=== PATIENT | male | born 1970 | race African-American/Black ===

== ENCOUNTER 2016-10-02 13:54 | Day surgery (SDC) | payer BC ==
[2016-09-29 13:27] VITALS: BMI 22.9
[2016-10-02] MEDS ORDERED: PROPOFOL 20 ML ONE ×4 (15:20)
[2016-10-02] MEDS ORDERED: ROCURONIUM BROMIDE 50 MG/5 ML VIAL ONE (15:23)
[2016-10-02] MEDS ORDERED: MIDAZOLAM HCL 2 MG/2 ML SINGLE DOSE VIAL ONE (15:35)
--- NOTE | 2016-10-02 16:12 | EKG ---
Test Reason : Blood Pressure : / mmHG Vent. Rate : 078 BPM Atrial Rate : 078 BPM P-R Int : 148 ms QRS Dur : 090 ms QT Int : 406 ms P-R-T Axes : 067 063 038 degrees QTc Int : 462 ms NORMAL SINUS RHYTHM POSSIBLE LEFT ATRIAL ENLARGEMENT LEFT VENTRICULAR HYPERTROPHY ABNORMAL ECG WHEN COMPARED WITH ECG OF 31-JUL-2014 12:30, NO SIGNIFICANT CHANGE WAS FOUND Confirmed by NICKY MANLEY, PRECIOUS ([id number]) on 10/02/2016 4:12:24 PM Referred By: MARTIN LEDEZMA Confirmed By:PRECIOUS SAUNDERS MD
[2016-10-02] MEDS ORDERED: SUCCINYLCHOLINE CHLORIDE 200 MG/10 ML VIAL ONE (17:04)
[2016-10-02] MEDS ORDERED: LABETALOL HCL 5 MG/1 ML (100MG/20 ML VIAL) ONE (17:15)
[2016-10-02] MEDS ORDERED: BUPIVACAINE HCL/PF 0.5% (5MG/ML) 10 ML VIAL IJ ONE (17:20)
[2016-10-02] MEDS ORDERED: DEXAMETHASONE SOD PHOSPHATE 4 MG/1 ML VIAL ONE (17:33)
[2016-10-02] MEDS ORDERED: GLYCOPYRROLATE 0.2 MG/1 ML VIAL ONE (17:44)
[2016-10-02] MEDS ORDERED: NEOSTIGMINE METHYLSULFATE 0.5 MG/ML - 10 ML MDV ONE (17:44)
--- NOTE | 2016-10-02 18:02 | OP ---
Operative Note - Note: Operative Date: 10/02/16 Pre-Operative Diagnosis: ESRD on HD Operation: Laparoscopy, placement peritoneal dialysis catheter Findings: No adhesions Post-Operative Diagnosis: Same as Pre-op Surgeon: Juarez Alexander Anesthesiologist/SQUARE SHEAR OPERATOR: Enrrique Washington Anesthesia: General
[2016-10-02] MEDS ORDERED: ACETAMINOPHEN 325 MG TABLET (FP) PO PRN (18:03)
[2016-10-02] MEDS ORDERED: oxyCODONE HCL 5 MG TABLET PO PRN ×2 (18:03→18:06)
[2016-10-02] MEDS ORDERED: ONDANSETRON 4 MG/2 ML VIAL IVPUSH PRN (18:06)
--- NOTE | 2016-10-02 18:10 | HP ---
Admitting History and Physical - Admission History of Present Illness: 46 yo male ESRD on HD has requested placement of Peritoneal Dialysis catheter. No prior abdominal surgery. - Past Medical History Cardiovascular: Yes: HTN Renal/: Yes: Renal Failure Heme/Onc: Yes: Anemia Infectious Disease: Yes: HIV Endocrine: Yes: Diabetes Mellitus - Smoking History Smoking history: Never smoked Have you smoked in the past 12 months: No Aproximately how many cigarettes per day: 0 - Alcohol/Substance Use Hx Alcohol Use: No - Social History ADL: Independent History of Recent Travel: No Home Medications - Allergies Allergies/Adverse Reactions: Allergies Allergy/AdvReac Type Severity Reaction Status Date / Time No Known Drug Allergies Allergy Verified 10/02/16 14:48 - Home Medications Home Medications: Ambulatory Orders Abacavir Sulfate [Abacavir] 300 mg PO DAILY 06/30/14 Lamivudine [Epivir] 150 mg PO DAILY 06/30/14 Rilpivirine HCl [Edurant] 25 mg PO DAILY 06/30/14 Calcium Acetate [Phoslo -] 1,334 mg PO TIDCM #90 capsule 07/16/14 Furosemide [Lasix -] 80 mg PO BID@0600,1400 #120 tablet 07/16/14 Labetalol HCl [Normodyne -] 400 mg PO BID #120 tablet 07/16/14 Losartan Potassium [Cozaar -] 50 mg PO DAILY #30 tablet 07/16/14 Nifedipine ER [Procardia XL -] 90 mg PO DAILY@2000 #30 tab.er.24 07/16/14 Tamsulosin HCl [Flomax -] 0.4 mg PO DAILY@0830 #30 cap.er.24h 07/16/14 Insulin Glargine,Hum.rec.anlog [Lantus (10mL VIAL) -] 25 units SQ HS 07/30/14 Amlodipine Besylate [Norvasc -] 10 mg PO DAILY 07/31/14 Hydrochlorothiazide [Hctz -] 25 mg PO DAILY 07/31/14 Benzonatate [Tessalon Pearls -] 100 mg PO TID #21 capsule 10/07/15 Insulin (Novolog) [Novolog Flexpen -] 5 units SQ DAILY 09/29/16 Pen Needle, Diabetic [Novofine] 5 each MC DAILY 09/29/16 Oxycodone HCl [Roxicodone -] 5 mg PO Q4H PRN #20 tablet MDD 6 10/02/16 Physical Examination Vital Signs: Vital Signs Temperature 97.9 F 10/02/16 14:36 Pulse Rate 81 10/02/16 14:36 Respiratory Rate 20 10/02/16 14:36 Blood Pressure 161/88 10/02/16 14:36 O2 Sat by Pulse Oximetry (%) 100 10/02/16 14:37 Constitutional: Yes: Well Nourished, No Distress Eyes: Yes: WNL HENT: Yes: WNL Neck: Yes: WNL, Supple Cardiovascular: Yes: Regular Rate and Rhythm Respiratory: Yes: Regular Gastrointestinal: Yes: Normal Bowel Sounds, Soft Peripheral Pulses WNL: Yes Labs: CBC, BMP 10/02/16 13:57 Problem List - Problems (1) ESRD (end stage renal disease) on dialysis Assessment/Plan: Placement PD catheter. ASU. Code(s): N18.6 - END STAGE RENAL DISEASE Z99.2 - DEPENDENCE ON RENAL DIALYSIS
[2016-10-02] MEDS ORDERED: SODIUM CHLORIDE 0.45% 1,000 ML IV SCH (18:15)
[2016-10-02 18:57] VITALS: TEMP 98.4
[2016-10-02 20:02] VITALS: BP 178/90; PULSE 67
--- NOTE | 2016-10-19 11:11 | OP ---
DATE OF OPERATION: 10/02/2016 SURGEON: Juarez Betancourt MD PROCEDURE: Laparoscopic placement of peritoneal dialysis catheter. PREOPERATIVE DIAGNOSIS: End-stage renal disease on hemodialysis. POSTOPERATIVE DIAGNOSIS: End-stage renal disease on hemodialysis. ANESTHESIA: General. ANESTHESIOLOGIST: Enrrique Washington MD OPERATIVE FINDINGS: There were no abnormal adhesions or redundant omentum in the peritoneal cavity. OPERATIVE PROCEDURE: Following routine patient identification with side and site verification, general anesthesia was induced. The abdomen was prepped with ChloraPrep. A small incision was made in the midline above the umbilicus, and a 5-mm Visiport placed under direct laparoscopic visualization into the peritoneal cavity. Pneumoperitoneum was established with carbon dioxide to 15 mmHg. A 30-degree angled laparoscope was inserted, and abdominal exploration carried out. An incision was made to the left of the umbilicus, and an 8-mm bladeless trocar advanced until the tip was seen on top of the peritoneum. The trocar was then advanced caudally towards the pelvis and entered the peritoneal cavity just above the true pelvis. A swan-neck take-off catheter with 2 cuffs was then straightened with a middle cele and passed through the 8-mm trocar and positioned in the pelvis. The trocar was pulled back, and the inner cuff positioned just at the level of the umbilicus. The other end of the catheter was attached to a curved tunneler, which was passed into subcutaneous tissues to exit in the right lower quadrant abdominal wall. The catheter was attached to a 1 L bag of saline, which was allowed to run in after evacuating pneumoperitoneum. The saline ran in at approximately 4.5 minutes. The bag was then dropped to the floor, and there was free flow of saline back out of the catheter. The remaining trocar was removed. All wounds were closed with 3-0 Vicryl subcutaneous and subcuticular 4-0 Biosyn, and glue. A sterile dressing was applied, and the patient was taken to the recovery room in stable condition. JUAREZ BETANCOURT M.D. [id number]
== END 2016-10-02 20:14 | disposition home or self-care (01) ==
LOC: JASU-SURG 13:54
PROVIDERS: ATTEND Surgery
PROC: 0WHG33Z Insertion of Infusion Device into Peritoneal Cavity, Percutaneous Approach (ICD-10-PCS; principal; 2016-10-02 13:30)
DX: I12.0 Hypertensive chronic kidney disease with stage 5 chronic kidney disease or end stage renal disease (principal); N18.5 Chronic kidney disease, stage 5; D64.9 Anemia, unspecified; B20 Human immunodeficiency virus [HIV] disease; E11.9 Type 2 diabetes mellitus without complications; Z79.4 Long term (current) use of insulin
CPT/HCPCS: 36415; 84132; 93005; 93010; 94760

== ENCOUNTER 2016-11-28 22:57 | Emergency (ER) | payer BC ==
[2016-11-28 23:03] VITALS: BP 183/90; PULSE 84; TEMP 98.4; BMI 24.5
--- NOTE | 2016-11-29 02:49 | PDOC ---
History of Present Illness - General Chief Complaint: Pain Stated Complaint: PAIN Time Seen by Provider: 11/29/16 01:48 History Source: Patient Exam Limitations: No Limitations - History of Present Illness Initial Comments: 11/29/16 02:43 46yo Male patient w/ PmHx: DM, HTN, Peripheral Neuropathy, Renal Failure on Dialysis presents to ED c/o right leg pain beginning yesterday. Patient states he is concerned for a clot, but he reports having a massage done a couple day prior to symptom presentation. Patient denies any other complaints at this time. Past History - Travel Traveled outside of the country in the last 30 days: No Close contact w/someone who was outside of country & ill: No - Past Medical History Allergies/Adverse Reactions: Allergies Allergy/AdvReac Type Severity Reaction Status Date / Time No Known Drug Allergies Allergy Verified 11/28/16 23:03 Home Medications: Ambulatory Orders Abacavir Sulfate [Abacavir] 300 mg PO DAILY 06/30/14 Lamivudine [Epivir] 150 mg PO DAILY 06/30/14 Rilpivirine HCl [Edurant] 25 mg PO DAILY 06/30/14 Calcium Acetate [Phoslo -] 1,334 mg PO TIDCM #90 capsule 07/16/14 Furosemide [Lasix -] 80 mg PO BID@0600,1400 #120 tablet 07/16/14 Labetalol HCl [Normodyne -] 400 mg PO BID #120 tablet 07/16/14 Losartan Potassium [Cozaar -] 50 mg PO DAILY #30 tablet 07/16/14 Nifedipine ER [Procardia XL -] 90 mg PO DAILY@2000 #30 tab.er.24 07/16/14 Tamsulosin HCl [Flomax -] 0.4 mg PO DAILY@0830 #30 cap.er.24h 07/16/14 Insulin Glargine,Hum.rec.anlog [Lantus (10mL VIAL) -] 25 units SQ HS 07/30/14 Amlodipine Besylate [Norvasc -] 10 mg PO DAILY 07/31/14 Hydrochlorothiazide [Hctz -] 25 mg PO DAILY 07/31/14 Benzonatate [Tessalon Pearls -] 100 mg PO TID #21 capsule 10/07/15 Insulin (Novolog) [Novolog Flexpen -] 5 units SQ DAILY 02/10/17 Pen Needle, Diabetic [Novofine] 5 each MC DAILY 09/29/16 Oxycodone HCl/Acetaminophen [Percocet 5-325 mg Tablet] 1 - 2 tab PO Q6H PRN #20 tab MDD 8 10/02/16 Anemia: Yes Asthma: No Cancer: No Cardiac Disorders: No CVA: No COPD: No CHF: No Dementia: No Diabetes: Yes GI Disorders: No Disorders: Yes (RENAL FAILURE ) HTN: Yes Hypercholesterolemia: No HIV: Yes Liver Disease: No Seizures: No Thyroid Disease: No - Surgical History Abdominal Surgery: No Appendectomy: No Cardiac Surgery: No Cholecystectomy: No Lung Surgery: No Neurologic Surgery: No Orthopedic Surgery: No - Family Disease History Family Disease History: Diabetes: Father - Immunization History Td Vaccination: Yes Immunization Up to Date: No - Psycho/Social/Smoking Cessation Hx Anxiety: No Suicidal Ideation: No Smoking Status: No Smoking History: Never smoked Have you smoked in the past 12 months: No Number of Cigarettes Smoked Daily: 0 Hx Alcohol Use: No Drug/Substance Use Hx: No Substance Use Type: None Hx Substance Use Treatment: No Review of Systems - Review of Systems Able to Perform ROS?: Yes Is the patient limited Bengali proficient: No Constitutional: No: Chills, Fever HEENTM: No: Blurred Vision, Double Vision Respiratory: No: Cough, Shortness of Breath, Stridor, Wheezing, Hemoptysis Cardiac (ROS): No: Chest Pain, Lightheadedness, Palpitations, Syncope, Chest Tightness ABD/GI: No: Constipated, Diarrhea, Nausea, Poor Appetite, Poor Fluid Intake, Vomiting : No: Burning, Dysuria, Hematuria Musculoskeletal: Yes: Other (Rt Leg Pain). No: Back Pain Integumentary: No: Bruising, Erythema, Rash Neurological: Yes: Numbness. No: Headache, Paresthesia, Seizure, Tingling, Tremors, Weakness, Ataxia, Dizziness All Other Systems: Reviewed and Negative *Physical Exam - Vital Signs Last Vital Signs Temp Pulse Resp BP Pulse Ox 98.4 F 84 18 183/90 100 11/28/16 22:58 11/28/16 22:58 11/28/16 22:58 11/28/16 22:58 11/28/16 22:58 - Physical Exam General Appearance: Yes: Nourished, Appropriately Dressed. No: Apparent Distress, Mild Distress, Moderate Distress, Severe Distress Respiratory/Chest: positive: Lungs Clear, Normal Breath Sounds. negative: Respiratory Distress, Accessory Muscle Use, Labored Respiration, Rapid RR Cardiovascular: positive: Regular Rhythm, Regular Rate. negative: Edema, JVD, Murmur Musculoskeletal: positive: Normal Inspection. negative: CVA Tenderness, Vertebral Tenderness Extremity: positive: Normal Capillary Refill, Normal Inspection, Normal Range of Motion, Calf Tenderness. negative: Pedal Edema, Swelling Integumentary: positive: Normal Color, Dry, Warm Neurologic: positive: paper colorer II-XII NML intact, Fully Oriented, Alert, Normal Mood/ Affect, Normal Response, Motor Strength 12/22 Medical Decision Making - Medical Decision Making 11/29/16 02:50 Patient was informed that ultrasound of lower extremity would be completed at 8am. Patient states he needs to go home to do his peritoneal dialysis and would return after 10am when he completes his treatment. Patient left treatment area at this time. 11/29/16 02:53 Patient will return from Ultrasound of right lower extremity in the am. *DC/Admit/Observation/Transfer Diagnosis at time of Disposition: ESRD (end stage renal disease) on dialysis, Right leg pain - Discharge Dispostion Disposition: LEFT BEFORE BLAS VERDIN Condition at time of disposition: Stable Admit: No
== END 2016-11-29 03:35 | disposition left against medical advice (07) ==
LOC: JER 22:57
DX: Z53.21 Procedure and treatment not carried out due to patient leaving prior to being seen by health care provider (principal)
CPT/HCPCS: 99281-25

== ENCOUNTER 2016-11-29 14:15 | Emergency (ER) | payer BC ==
[2016-11-29 14:46] VITALS: BP 163/84; PULSE 78; TEMP 98.6; BMI 24.6
--- NOTE | 2016-11-29 15:12 | PDOC ---
History of Present Illness - General Chief Complaint: Pain, Acute Stated Complaint: REVIST Time Seen by Provider: 11/29/16 14:49 History Source: Patient - History of Present Illness Occurred: reports: other Lower Extremity Pain Location: right: leg Past History - Past Medical History Allergies/Adverse Reactions: Allergies Allergy/AdvReac Type Severity Reaction Status Date / Time No Known Drug Allergies Allergy Verified 11/29/16 14:38 Home Medications: Ambulatory Orders Abacavir Sulfate [Abacavir] 300 mg PO DAILY 06/30/14 Lamivudine [Epivir] 150 mg PO DAILY 06/30/14 Calcium Acetate [Phoslo -] 1,334 mg PO TIDCM #90 capsule 07/16/14 Losartan Potassium [Cozaar -] 50 mg PO DAILY #30 tablet 07/16/14 Nifedipine ER [Procardia XL -] 90 mg PO DAILY@2000 #30 tab.er.24 07/16/14 Tamsulosin HCl [Flomax -] 0.4 mg PO DAILY@08 #30 cap.er.24h 07/16/14 Insulin Glargine,Hum.rec.anlog [Lantus (10mL VIAL) -] 25 units SQ HS 07/30/14 Amlodipine Besylate [Norvasc -] 10 mg PO DAILY 07/31/14 Hydrochlorothiazide [Hctz -] 25 mg PO DAILY 07/31/14 Insulin (Novolog) [Novolog Flexpen -] 5 units SQ DAILY 09/29/16 Pen Needle, Diabetic [Novofine] 5 each MC DAILY 09/29/16 Anemia: Yes Asthma: No Cancer: No Cardiac Disorders: No CVA: No COPD: No CHF: No Dementia: No Diabetes: Yes GI Disorders: No Disorders: Yes (RENAL FAILURE ) HTN: Yes Hypercholesterolemia: No HIV: Yes Liver Disease: No Seizures: No Thyroid Disease: No - Surgical History Abdominal Surgery: No Appendectomy: No Cardiac Surgery: No Cholecystectomy: No Lung Surgery: No Neurologic Surgery: No Orthopedic Surgery: No - Family Disease History Family Disease History: Diabetes: Father - Immunization History Td Vaccination: Yes Immunization Up to Date: No - Psycho/Social/Smoking Cessation Hx Anxiety: No Suicidal Ideation: No Smoking Status: No Smoking History: Never smoked Have you smoked in the past 12 months: No Number of Cigarettes Smoked Daily: 0 Hx Alcohol Use: No Drug/Substance Use Hx: No Substance Use Type: None Hx Substance Use Treatment: No Review of Systems - Review of Systems Constitutional: No: Chills, Fever Respiratory: No: Shortness of Breath Cardiac (ROS): No: Chest Pain, Palpitations *Physical Exam - Vital Signs Last Vital Signs Temp Pulse Resp BP Pulse Ox 98.6 F 78 20 163/84 98 11/29/16 14:41 11/29/16 14:41 11/29/16 14:41 11/29/16 14:41 11/29/16 14:41 - Physical Exam General Appearance: Yes: Appropriately Dressed. No: Apparent Distress HEENT: positive: Normal Voice Neck: positive: Supple Respiratory/Chest: negative: Respiratory Distress Extremity: positive: Normal Inspection Integumentary: positive: Dry, Warm Neurologic: positive: Fully Oriented, Alert, Normal Mood/Affect ED Treatment Course - RADIOLOGY Radiology Studies Ordered: Category Date Time Status DUPLEX VASCUL US-1 LEG [US] Stat Ultrasound 11/29/16 14:51 Ordered Medical Decision Making - Medical Decision Making 11/29/16 15:12 46-year-old male, history of diabetes on peritoneal dialysis, peripheral neuropathy, hypertension, was seen in ER this a.m. for right leg soreness. Per records, patient had, had a massage done several days prior to onset of symptoms. Pt's exam was found to be unremarkable with no swelling. Plan per ED was to get ultrasound done to r/o DVT, but given time of day, there was no armorer technician available and patient states he had to leave to go do his peritoneal dialysis at home, so was told to return to ED today for ultrasound today. Patient denies any change of symptoms since he has been discharged and no chest pain, shortness of breath or palpitations -US pending 11/29/16 15:48 US neg for DVT. Pt discharged in stable condition, to f/u with his PMD 11/29/16 15:49 *DC/Admit/Observation/Transfer Diagnosis at time of Disposition: Leg pain Qualifiers: Laterality: right Qualified Code(s): M79.604 - Pain in right leg - Discharge Dispostion Disposition: HOME Condition at time of disposition: Good - Patient Instructions Printed Discharge Instructions: DI for Leg Pain Additional Instructions: Your US was negative for clot in your leg today. The source of your pain is most likely from a muscular cause. Take tylenol as needed for pain and follow up with your PMD
== END 2016-11-29 15:55 | disposition home or self-care (01) ==
LOC: JERFT 14:15
DX: M79.604 Pain in right leg (principal); G62.89 Other specified polyneuropathies; I12.0 Hypertensive chronic kidney disease with stage 5 chronic kidney disease or end stage renal disease; E11.22 Type 2 diabetes mellitus with diabetic chronic kidney disease; N18.6 End stage renal disease; N17.8 Other acute kidney failure; Z99.2 Dependence on renal dialysis; Z79.4 Long term (current) use of insulin; D64.9 Anemia, unspecified; Z21 Asymptomatic human immunodeficiency virus [HIV] infection status
CPT/HCPCS: 93971-TC; 99281-25

== ENCOUNTER 2016-12-15 19:10 | Emergency (ER) | payer BC ==
--- NOTE | 2016-12-15 19:31 | PDOC ---
History of Present Illness - General Chief Complaint: Wound Stated Complaint: PD DRESSING LEAKING Time Seen by Provider: 12/15/16 19:17 - History of Present Illness Initial Comments: 12/15/16 19:31 Patient presents requesting a dressing change, abdominal wound. He had a peritoneal dialysis catheter removed today, the drainage is wet and he has no supplies to change it. He has no pain at the site, there has been no purulent fluid. Abdomen soft nontender without mass or organomegaly. 2 mm puncture site is clean and dry. Dressing is wet, but there is no continued drainage from the wound A new absorbent dressing was applied. Gauze and tape supplies were furnished for subsequent dressing changes. The patient was instructed that if the drainage persist to go back to see his surgeon for further evaluation and treatment. In no pain or other discomfort upon discharge to follow-up as directed Past History - Past Medical History Allergies/Adverse Reactions: Allergies Allergy/AdvReac Type Severity Reaction Status Date / Time No Known Drug Allergies Allergy Verified 12/15/16 19:20 Home Medications: Ambulatory Orders Abacavir Sulfate [Abacavir] 300 mg PO DAILY 06/30/14 Lamivudine [Epivir] 150 mg PO DAILY 06/30/14 Calcium Acetate [Phoslo -] 1,334 mg PO TIDCM #90 capsule 07/16/14 Losartan Potassium [Cozaar -] 50 mg PO DAILY #30 tablet 07/16/14 Nifedipine ER [Procardia XL -] 90 mg PO DAILY@2000 #30 tab.er.24 07/16/14 Tamsulosin HCl [Flomax -] 0.4 mg PO DAILY@0830 #30 cap.er.24h 07/16/14 Insulin Glargine,Hum.rec.anlog [Lantus (10mL VIAL) -] 25 units SQ HS 07/30/14 Amlodipine Besylate [Norvasc -] 10 mg PO DAILY 07/31/14 Hydrochlorothiazide [Hctz -] 25 mg PO DAILY 07/31/14 Insulin (Novolog) [Novolog Flexpen -] 5 units SQ DAILY 09/29/16 Pen Needle, Diabetic [Novofine] 5 each MC DAILY 09/29/16 Anemia: Yes Asthma: No Cancer: No Cardiac Disorders: No CVA: No COPD: No CHF: No Dementia: No Diabetes: Yes GI Disorders: No Disorders: Yes (RENAL FAILURE [id number]) HTN: Yes Hypercholesterolemia: No HIV: Yes Liver Disease: No Seizures: No Thyroid Disease: No - Surgical History Abdominal Surgery: No Appendectomy: No Cardiac Surgery: No Cholecystectomy: No Lung Surgery: No Neurologic Surgery: No Orthopedic Surgery: No - Family Disease History Family Disease History: Diabetes: Father - Immunization History Td Vaccination: Yes Immunization Up to Date: No - Psycho/Social/Smoking Cessation Hx Anxiety: No Suicidal Ideation: No Smoking Status: No Smoking History: Never smoked Have you smoked in the past 12 months: No Number of Cigarettes Smoked Daily: 0 Information on smoking cessation initiated: No Hx Alcohol Use: No Drug/Substance Use Hx: No Substance Use Type: None Hx Substance Use Treatment: No *Physical Exam - Vital Signs Last Vital Signs Temp Pulse Resp BP Pulse Ox 98.7 F 89 18 155/88 100 12/15/16 19:10 12/15/16 19:10 12/15/16 19:10 12/15/16 19:10 12/15/16 19:10 *DC/Admit/Observation/Transfer Diagnosis at time of Disposition: Wound drainage - Discharge Dispostion Condition at time of disposition: Stable Admit: No - Patient Instructions Additional Instructions: Keep covered with absorbent dressing. If there is increased drainage or bleeding , see your surgeon for further treatment.
[2016-12-15 20:05] VITALS: BP 155/88; PULSE 89; TEMP 98.7; BMI 23.5
== END 2016-12-15 19:50 | disposition home or self-care (01) ==
LOC: FER 19:10
DX: Z48.01 Encounter for change or removal of surgical wound dressing (principal); E11.9 Type 2 diabetes mellitus without complications; I10 Essential (primary) hypertension; Z21 Asymptomatic human immunodeficiency virus [HIV] infection status; N19 Unspecified kidney failure; Z79.4 Long term (current) use of insulin
CPT/HCPCS: 99282-25

== ENCOUNTER 2017-01-02 19:44 | Emergency (ER) | payer BC ==
--- NOTE | 2017-01-02 19:51 | PDOC ---
History of Present Illness - General History Source: Patient, Old Records Exam Limitations: No Limitations - History of Present Illness Initial Comments: The patient is a 46 year old male with a significant past medical history of HIV , diabetes, anemia, renal failure, HTN, who presents to the emergency department today for further evaluation of an abscess on his left gluteus since Sunday. The patient states that he his abscess is associated with pain. He denies any prior similar symptoms. The patient denies fever, chills, and sweats. The patient denies nausea, vomiting, and diarrhea. The patient denies chest pain, cough, and shortness of breath. PAST MEDICAL HISTORY: HIV, diabetes, anemia, renal failure, HTN, PAST SURGICAL HISTORY: No significant history reported FAMILY HISTORY: Father: Diabetes SOCIAL HISTORY: None reported MEDICATIONS: Reviewed ALLERGIES: As per nursing notes <He Jauregui - Last Filed: 01/02/17 20:00> - General History Source: Patient Exam Limitations: No Limitations - History of Present Illness Initial Comments: 01/02/17 21:10 A portion of this note was documented by scribe services under my direction. I have reviewed the details of the note, within reason, and agree with the documentation. The case summary and management plan written by me. Assessment and plan: This is a 46-year-old male with history of HIV, diabetes and renal failure who comes in complaining of a abscess/Chase on his left gluteal area. On exam there is a cellulitis to the area but no palpable collection. Patient denied any fevers. His CBC was normal. Patient was given a dose of IV vancomycin and told to do hot soaks to the area and follow-up with his doctor in 2 days as it will most likely need to be drained at that time. Patient discharged home. With a prescription for Bactrim to continue it <Clifton Lora I - Last Filed: 01/02/17 21:14> - General Chief Complaint: Pain, Acute Stated Complaint: PICKED A PIMPLE/PAIN Time Seen by Provider: 01/02/17 19:50 Past History <He Jauregui - Last Filed: 01/02/17 20:00> - Past Medical History Anemia: Yes Asthma: No Cancer: No Cardiac Disorders: No CVA: No COPD: No CHF: No Dementia: No Diabetes: Yes GI Disorders: No Disorders: Yes (RENAL FAILURE [id number]) HTN: Yes Hypercholesterolemia: No HIV: Yes Liver Disease: No Seizures: No Thyroid Disease: No - Surgical History Abdominal Surgery: No Appendectomy: No Cardiac Surgery: No Cholecystectomy: No Lung Surgery: No Neurologic Surgery: No Orthopedic Surgery: No - Family Disease History Family Disease History: Diabetes: Father - Immunization History Td Vaccination: Yes Immunization Up to Date: No - Psycho/Social/Smoking Cessation Hx Anxiety: No Suicidal Ideation: No Smoking Status: No Smoking History: Never smoked Have you smoked in the past 12 months: No Number of Cigarettes Smoked Daily: 0 Hx Alcohol Use: No Drug/Substance Use Hx: No Substance Use Type: None Hx Substance Use Treatment: No <Clifton Lora I - Last Filed: 01/02/17 21:14> - Past Medical History Allergies/Adverse Reactions: Allergies Allergy/AdvReac Type Severity Reaction Status Date / Time No Known Drug Allergies Allergy Verified 01/02/17 19:53 Home Medications: Ambulatory Orders Abacavir Sulfate [Abacavir] 300 mg PO DAILY 06/30/14 Lamivudine [Epivir] 150 mg PO DAILY 06/30/14 Calcium Acetate [Phoslo -] 1,334 mg PO TIDCM #90 capsule 07/16/14 Losartan Potassium [Cozaar -] 50 mg PO DAILY #30 tablet 07/16/14 Nifedipine ER [Procardia XL -] 90 mg PO DAILY@2000 #30 tab.er.24 07/16/14 Tamsulosin HCl [Flomax -] 0.4 mg PO DAILY@0830 #30 cap.er.24h 07/16/14 Insulin Glargine,Hum.rec.anlog [Lantus (10mL VIAL) -] 25 units SQ HS 07/30/14 Amlodipine Besylate [Norvasc -] 10 mg PO DAILY 07/31/14 Hydrochlorothiazide [Hctz -] 25 mg PO DAILY 07/31/14 Insulin (Novolog) [Novolog Flexpen -] 5 units SQ DAILY 09/29/16 Pen Needle, Diabetic [Novofine] 5 each MC DAILY 09/29/16 Sulfamethoxazole/Trimethoprim [Bactrim DS -] 2 tab PO BID #28 tablet 01/02/17 Review of Systems - Review of Systems Able to Perform ROS?: Yes Comments:: General: No fevers or chills, no weakness, no weight loss HEENT: No change in vision. No sore throat, No ear pain CardioVascular: No chest pain or shortness of breath Respiratory:No cough, or wheezing. Gastrointestinal: no nausea, vomiting, diarrhea or constipation, No rectal bleeding Genitourinary: No dysuria, hematuria, or frequency Musculoskeletal: No joint or muscle pain or swelling Neurologic: No headache, vertigo, dizziness or loss of consciousness Psychiatric: nor depression Skin: (+) Left gluteal abscess. No easy bruising Endocrine: no increased thirst or abnormal weight change Allergic: no skin or latex allergy All other systems reviewed and normal <He Jauregui - Last Filed: 01/02/17 20:00> *Physical Exam - Physical Exam Comments: General: Well-nourished well-developed individual, no acute distress HEENT: Throat: Normal, tonsils normal, no erythema or exudate Neck: Supple, no meningeal signs, no lymphadenopathy Eyes::Pupils equal reactive and round, extraocular motion intact Chest: Nontender to palpation Cardiac: S1-S2 normal, regular rate and rhythm, no murmurs rubs or gallops Respiratory: Lungs clear to auscultation bilateral Abdomen: Soft, nondistended, normal bowel sounds, nontender to palpation diffusely Extremities: Warm, dry, no cyanosis, clubbing, or edema Skin: (+) Left gluteal cellulitis Neuro: Alert and oriented x3, nonfocal exam, grossly intact, normal gait Psych: Normal mood and affect <He Jauregui - Last Filed: 01/02/17 20:00> ED Treatment Course - LABORATORY CBC & Chemistry Diagram: 01/02/17 20:05 <Clifton Lora I - Last Filed: 01/02/17 21:14> *DC/Admit/Observation/Transfer - Attestations Scribe Attestion: Documentation prepared by He Jauregui, acting as medical van driver for Clifton Lora MD. <He Jauregui - Last Filed: 01/02/17 20:00> - Discharge Dispostion Admit: No <Clifton Lora I - Last Filed: 01/02/17 21:14> Diagnosis at time of Disposition: Cellulitis of left buttock - Discharge Dispostion Disposition: HOME Condition at time of disposition: Stable - Prescriptions Prescriptions: Sulfamethoxazole/Trimethoprim [Bactrim DS -] 2 tab PO BID #28 tablet - Patient Instructions Additional Instructions: Take Bactrim 2 tablets twice a day for the next 7 days. Apply hot soaks to the area as discussed with the doctor. Call your primary care doctor in the morning and make an appointment for 2 days from now to be reevaluated as it may need to be drained at that time if it is not better. Return to the emergency department immediately with ANY new, persistent or worsening symptoms. Continue any medications as previously prescribed by your physician. You should follow up with your primary doctor as soon as possible regarding today's emergency department visit. . Please make sure your doctor reviews the results of your emergency evaluation. Thank you for coming to the Emergency Department today for your care. It was a pleasure to see you today. Please note that your evaluation is INCOMPLETE until you follow-up with your doctor.
[2017-01-02] MEDS ORDERED: VANCOMYCIN 1,000 MG in DEXTROSE 5%-WATER - 250 ML IVPB STA (19:56)
[2017-01-02 20:08] VITALS: BP 147/93; PULSE 100; TEMP 99; BMI 21.5
[2017-01-02] MEDS ORDERED: VANCOMYCIN 1,000 MG VIAL (RESTRICTED TO ID ONLY) ONE (20:10)
[2017-01-02 21:06] LABS: BASOPHIL 0.5 % (0-2.0); EOSINOPHIL 2.2 % (0-4.5); MCH 32.3 pg (25.7-33.7); MCHC 34.9 g/dl (32.0-35.9); MEAN CELL VOLUME 92.3 fl (80-96); MEAN PLT VOLUME 6.9 fl (7.5-11.1); NEUTROPHILS 63.7 % (42.8-82.8); PLATELET COUNT 292 K/MM3 (134-434); RDW 16.6 % (11.9-15.9); WHITE BLOOD COUNT 5.1 K/mm3 (4.0-10.8)
== END 2017-01-02 21:35 | disposition home or self-care (01) ==
LOC: FER 19:44
DX: L03.317 Cellulitis of buttock (principal); Z21 Asymptomatic human immunodeficiency virus [HIV] infection status; E11.9 Type 2 diabetes mellitus without complications; N19 Unspecified kidney failure; I10 Essential (primary) hypertension; D64.9 Anemia, unspecified
CPT/HCPCS: 36415; 85025; 87040; 99281-25

== ENCOUNTER 2018-07-16 20:08 | Observation (INO) | payer OTHER, BC ==
[2018-07-16 20:25] VITALS: BMI 22.1
--- NOTE | 2018-07-16 20:26 | PDOC ---
Rapid Medical Evaluation Chief Complaint: Chest Pain Time Seen by Provider: 07/16/18 20:22 Medical Evaluation: Allergies Allergy/AdvReac Type Severity Reaction Status Date / Time No Known Drug Allergies Allergy Verified 01/02/17 19:53 07/16/18 20:24 Patient c/o: LSCP since this am, had pain last sunday but resolved w/out intervention, had dialysis today Patient on brief exam: lcta, vss Patient ordered for: cardiac w/u The patient will proceed to the ED Discharge Disposition - Diagnosis Chest pain - Referrals - Patient Instructions - Post Discharge Activity
--- NOTE | 2018-07-16 21:43 | PDOC ---
History of Present Illness - General Chief Complaint: Chest Pain Stated Complaint: CHEST PAIN Time Seen by Provider: 07/16/18 20:22 - History of Present Illness Initial Comments: 07/16/18 22:21 The patient is a 47 year old male with a history of HTN, DM, ESRD on dialysis ( , , Sun) who presents for evaluation of chest pain. The patient reports onset of mild sharp left sided chest pain today after dialysis. He notes that the pain is worse with movement, but states that is has improved throughout the day. He states that he had a similar episode 1 week ago which resolved without intervention. He otherwise denies fevers, chills, cough, SOB, nausea, vomiting, abdominal pain, or changes with urination or bowel movements. Past History - Past Medical History Allergies/Adverse Reactions: Allergies Allergy/AdvReac Type Severity Reaction Status Date / Time No Known Drug Allergies Allergy Verified 07/16/18 20:34 Home Medications: Ambulatory Orders Abacavir Sulfate [Abacavir] 300 mg PO DAILY 06/30/14 Lamivudine [Epivir] 150 mg PO DAILY 06/30/14 Calcium Acetate [Phoslo -] 1,334 mg PO TIDCM #90 capsule 07/16/14 Insulin Glargine,Hum.rec.anlog [Lantus (10mL VIAL) -] 25 units SQ HS 07/30/14 Pen Needle, Diabetic [Novofine] 5 each MC DAILY 09/29/16 Amlodipine Besylate [Norvasc -] 10 mg PO DAILY #30 tablet 07/17/18 Emtricitabine [Emtriva -] 1 tab PO Q96H 07/17/18 Insulin Aspart [Novolog] See Protocol SQ AC #10 cartridge 07/17/18 Rilpivirine HCl [Edurant] 1 tab PO DAILY 07/17/18 Sildenafil Citrate [Viagra] 100 mg PO DAILY PRN 07/17/18 Tenofovir Disoproxil Fumarate [Viread -] 1 tab PO WEEKLY 07/17/18 Anemia: Yes Asthma: No Cancer: No Cardiac Disorders: No CVA: No COPD: No CHF: No Dementia: No Diabetes: Yes GI Disorders: No Disorders: Yes (RENAL FAILURE [id number]) HTN: Yes Hypercholesterolemia: No Liver Disease: No Seizures: No Thyroid Disease: No - Surgical History Abdominal Surgery: No Appendectomy: No Cardiac Surgery: No Cholecystectomy: No Lung Surgery: No Neurologic Surgery: No Orthopedic Surgery: No - Family Disease History Family Disease History: Diabetes: Father - Immunization History Td Vaccination: Yes Immunization Up to Date: No - Suicide/Smoking/Psychosocial Hx Smoking Status: No Smoking History: Never smoked Have you smoked in the past 12 months: No Number of Cigarettes Smoked Daily: 0 Information on smoking cessation initiated: No Hx Alcohol Use: No Drug/Substance Use Hx: No Substance Use Type: None Hx Substance Use Treatment: No Review of Systems - Review of Systems Comments:: 07/16/18 22:28 Constitutional: No fevers, chills, fatigue, malaise HEENT: No Rhinorrhea, nasal congestion, visual changes Cardiovascular: Chest pain. No syncope, palpitations, lightheadedness Respiratory: No Cough, SOB, Hemoptysis, Gastrointestinal: No Abdominal pain, Nausea, Vomiting, Constipation, Diarrhea, Melena Genitourinary: No Dysuria, Frequency, Urgency, Hesitancy, Hematuria, Flank pain Musculoskeletal: No Myalgia, arthralgia Skin: No rashes, itching, bruising, pallor Neurologic: No Headache, Dizziness, Numbness, Weakness, or Tingling Psychiatric: No Hallucinations. No SI or HI *Physical Exam - Vital Signs Last Vital Signs Temp Pulse Resp BP Pulse Ox 98.2 F 92 H 16 112/79 100 07/16/18 20:24 07/16/18 20:24 07/16/18 20:24 07/16/18 20:24 07/16/18 20:24 - Physical Exam Comments: 07/16/18 22:29 General Appearance: Nourished. No Apparent Distress HEENT: No Pharyngeal Erythema, Tonsillar Exudate, Tonsillar Erythema Neck: No Cervical Lymphadenopathy Respiratory/Chest: Lungs Clear, Normal Breath Sounds. Reproducible tenderness to palpation on exam of the left chest wall. No Crackles, Rales, Rhonchi, Wheezing Cardiovascular: Regular Rhythm, Regular Rate. No Murmur, Gallops, Rubs Gastrointestinal/Abdominal: Normal Bowel Sounds, Soft. No Guarding, Rebound, Tenderness Musculoskeletal: No CVA Tenderness Extremity: Left AV fistual noted on exam. Normal Capillary Refill Integumentary: Normal Color, Dry, Warm Neurologic: Fully Oriented, Alert, Normal Mood/Affect, Normal Response, Moderate Sedation - Procedure Monitoring Vital Signs: Procedure Monitoring Vital Signs Temperature 98.2 F 07/16/18 20:24 Pulse Rate 92 H 07/16/18 20:24 Respiratory Rate 16 07/16/18 20:24 Blood Pressure 112/79 07/16/18 20:24 O2 Sat by Pulse Oximetry (%) 100 07/16/18 20:24 Heart Score/ECG Review #1 ECG reviewed & interpreted by me at: 22:37 General ECG Interpretation: Sinus Rhythm, Normal Rate, Normal Intervals, No acute ischemic changes ED Treatment Course - LABORATORY CBC & Chemistry Diagram: 07/16/18 22:14 07/17/18 17:50 Medical Decision Making - Medical Decision Making 07/16/18 22:37 The patient is a 47 year old male with a history of HTN, DM, ESRD on dialysis ( [facility], [facility]) who presents for evaluation of chest pain. Differential includes but is not limited to: ACS, Arrhythmia, Musculoskeletal, Infectious, Metabolic Derangement. Given the patient's history and physical exam, we will obtain a cbc, cmp, troponin, ekg, chest plain film to evaluate further. The patient took aspirin at home. We will continue to monitor and reassess while here in the ED. 07/17/18 00:56 CBC is unremarkable. CMP demonstrates elevated glucose and creatinine. Troponin is unremarkable. Given the patient's significant co-morbidities, we believe he requires observation admission for further monitoring. We discussed the case with the admitting team who accepted the patient for admission. *DC/Admit/Observation/Transfer Diagnosis at time of Disposition: Chest pain Qualifiers: Chest pain type: unspecified Qualified Code(s): R07.9 - Chest pain, unspecified - Discharge Dispostion Disposition: HOME Condition at time of disposition: Improved Decision to Admit order: Yes - Prescriptions - Referrals - Patient Instructions - Post Discharge Activity
[2018-07-16 22:27] LABS: BASO % 1.2 % (0-2.0); EOS % 3.2 % (0-4.5); HEMATOCRIT 34.1 % (35.4-49); HEMOGLOBIN 12.2 GM/dL (11.7-16.9); LYMPH % 35.4 % (8-40); MCHC 35.9 g/dl (32.0-35.9); MEAN PLT VOLUME 7.3 fl (7.5-11.1); MONO % 6.2 % (3.8-10.2); PLATELET COUNT 189 K/MM3 (134-434); RBC 3.71 M/mm3 (4.00-5.60); RDW 16.8 % (11.9-15.9); WHITE BLOOD COUNT 3.6 K/mm3 (4.0-10.0)
[2018-07-16 22:51] LABS: INR 1.03 (0.83-1.09); PROTHROMBIN TIME (PATIENT) 12.1 SEC (9.7-13.0)
[2018-07-16 22:59] LABS: ALBUMIN 3.4 g/dl (3.4-5.0); ALK PHOS 169 U/L (45-117); ANION GAP 9 MMOL/L (8-16); BILIRUBIN,TOTAL 0.4 mg/dL (0.2-1); BLOOD UREA NITROGEN 47 mg/dL (7-18); CALCIUM 7.9 mg/dL (8.5-10.1); CHLORIDE 98 mmol/L (98-107); CO2 28 mmol/L (21-32); MAGNESIUM 2.6 mg/dL (1.8-2.4); POTASSIUM 5.3 mmol/L (3.5-5.1); SGOT/AST 23 U/L (15-37); SGPT/ALT 28 U/L (13-61); SODIUM 135 mmol/L (136-145)
[2018-07-16 23:00] LABS: CREATININE 10.6 mg/dL (0.55-1.3); GLUCOSE,RANDOM 373 mg/dL (74-106)
--- NOTE | 2018-07-17 00:36 | PDOC ---
Attending Attestation - Resident Resident Name: KimiRick - ED Attending Attestation I have performed the following: I have examined & evaluated the patient, The case was reviewed & discussed with the resident, I agree w/resident's findings & plan, Exceptions are as noted - HPI HPI: 07/17/18 00:33 47 yo M h/o eSRD, DM currenty on transplant list, here for c/o chest pain at dialysis. states his pain has resolved. feels he still has pain however when he pushes on his chest. describe and tightness. no radiation. no associated sob. no leg swelling did get his complete dialysis today. schedule is ttr. has had a stress test earlier this year he thinks october, at [facility] which was reportedly normal. no h/o pe or dt. no other comlaints. no f/c no cough. - Physicial Exam PE: 07/17/18 00:34 awake alert lungs clear bilaterally no reproducible pain on chest wall. heart rrr no mrg abd soft nt nd. ext wwp. no edema. no calf tenderenss. awake alert oriented x 3. - Medical Decision Making 07/17/18 00:35 differential is angina, pna, chest wall pain, pluerisy, percicardial irritation.plan ekg labs cxr . pt is high risk due to h/o dialysis and DM . will atif require obsveration
[2018-07-17] MEDS ORDERED: ACETAMINOPHEN 325 MG TABLET (FP) PO PRN (03:20)
[2018-07-17] MEDS ORDERED: INSULIN REGULAR HUMAN 100 UNITS/ML *VIAL IVPUSH ONE ×2 (03:26→04:36)
--- NOTE | 2018-07-17 03:34 | HP ---
CHIEF COMPLAINT: left chest pain PCP: Dr. Lai HISTORY OF PRESENT ILLNESS: 47 yo male with PMH HTN, IDDM, ESRD on HD (T,Th,S), HIV on haart therapy admitted following an episode of chest pain following dialysis which promted him to go to the ED for evaluation. He states he had a similar less severe pain which resolved one week ago, but has otherwise never had any chest pain previously or any cardiac events before. He describes the pain as sharp on the left side of his chest towards his axilla. He endorses that he had a stress test at some point recently during a workup for a possible kidney transplant which he states was perfectly normal. History is difficult to obtain as pt states he does not want to keep being asked questions by different providers and that everything should be in the chart. He denies any weakness, SOB, radiation of the pain, n/v/d. ER course was notable for: (1) Troponin negative, EKG (2) Glucose 373, K 5.3 (3) Recent Travel: none PAST MEDICAL HISTORY: As above PAST SURGICAL HISTORY: unable to obtain Social History: Smoking: denies Alcohol: denies Drugs: denies Family History: Allergies No Known Drug Allergies Allergy (Verified 07/16/18 20:34) HOME MEDICATIONS: Home Medications Medication Instructions Recorded Abacavir Sulfate [Abacavir] 300 mg PO DAILY 06/30/14 Lamivudine [Epivir] 150 mg PO DAILY 06/30/14 Calcium Acetate [Phoslo -] 1,334 mg PO TIDCM #90 capsule 07/16/14 Losartan Potassium [Cozaar -] 50 mg PO DAILY #30 tablet 07/16/14 Nifedipine ER [Procardia XL -] 90 mg PO DAILY@2000 #30 tab.er.24 07/16/14 Tamsulosin HCl [Flomax -] 0.4 mg PO DAILY@0830 #30 cap.er.24h 07/16/14 Insulin Glargine,Hum.rec.anlog 25 units SQ HS 07/30/14 [Lantus (10mL VIAL) -] Amlodipine Besylate [Norvasc -] 10 mg PO DAILY 07/31/14 Hydrochlorothiazide [Hctz -] 25 mg PO DAILY 07/31/14 Insulin (Novolog) [Novolog Flexpen 5 units SQ DAILY 09/29/16 -] Pen Needle, Diabetic [Novofine] 5 each MC DAILY 09/29/16 Sulfamethoxazole/Trimethoprim 2 tab PO BID #28 tablet 01/02/17 [Bactrim DS -] REVIEW OF SYSTEMS CONSTITUTIONAL: Absent: fever, chills, diaphoresis, generalized weakness, malaise, loss of appetite, weight change HEENT: Absent: rhinorrhea, nasal congestion, throat pain, throat swelling, difficulty swallowing, mouth swelling, ear pain, eye pain, visual changes CARDIOVASCULAR: chest pain Absent: , syncope, palpitations, irregular heart rate, lightheadedness, peripheral edema RESPIRATORY: Absent: cough, shortness of breath, dyspnea with exertion, orthopnea, wheezing, stridor, hemoptysis GASTROINTESTINAL: Absent: abdominal pain, abdominal distension, nausea, vomiting, diarrhea, constipation, melena, hematochezia GENITOURINARY: Absent: dysuria, frequency, urgency, hesitancy, hematuria, flank pain, genital pain MUSCULOSKELETAL: Absent: myalgia, arthralgia, joint swelling, back pain, neck pain SKIN: Absent: rash, itching, pallor HEMATOLOGIC/IMMUNOLOGIC: Absent: easy bleeding, easy bruising, lymphadenopathy, frequent infections ENDOCRINE: Absent: unexplained weight gain, unexplained weight loss, heat intolerance, cold intolerance NEUROLOGIC: Absent: headache, focal weakness or paresthesias, dizziness, unsteady gait, seizure, mental status changes, bladder or bowel incontinence PSYCHIATRIC: Absent: anxiety, depression, suicidal or homicidal ideation, hallucinations. PHYSICAL EXAMINATION Vital Signs - 24 hr 07/16/18 20:24 Temperature 98.2 F Pulse Rate 92 H Respiratory 16 Rate Blood Pressure 112/79 O2 Sat by Pulse 100 Oximetry (%) GENERAL: A&O, no acute distress HEAD: Normocephalic, atraumatic. EARS, NOSE, THROAT: oropharynx clear without exudates. Moist mucous membranes. LUNGS: CTA b/l, no crackles or wheezes HEART: Regular rate and rhythm, normal S1 and S2 , systolic murmur noted best at right sternal border ABDOMEN: Soft, nontender to palpation, normoactive bowel sounds EXTREMITIES: 2+ pulses, warm, well-perfused. No peripheral edema. NEUROLOGICAL: Cranial nerves II-XII grossly intact. Normal speech. Laboratory Results - last 24 hr 07/16/18 07/16/18 07/16/18 22:14 22:14 22:14 WBC 3.6 L RBC 3.71 L Hgb 12.2 Hct 34.1 L D MCV 92.0 MCH 33.0 MCHC 35.9 RDW 16.8 H Plt Count 189 D MPV 7.3 L Absolute Neuts (auto) 1.9 Neutrophils % 54.0 Lymphocytes % 35.4 Monocytes % 6.2 Eosinophils % 3.2 Basophils % 1.2 Nucleated RBC % 0 PT with INR 12.10 INR 1.03 Sodium 135 L Potassium 5.3 H Chloride 98 Carbon Dioxide 28 Anion Gap 9 BUN 47 H Creatinine 10.6 H* Creat Clearance w eGFR 5.28 Random Glucose 373 H* Calcium 7.9 L Magnesium 2.6 H Total Bilirubin 0.4 AST 23 ALT 28 Alkaline Phosphatase 169 H Creatine Kinase 358 H Creatine Kinase Index 2.2 CK-MB (CK-2) 8.1 H Troponin I 0.02 Total Protein 7.0 Albumin 3.4 ASSESSMENT/PLAN: 47 yo male with PMH HTN, IDDM, ESRD on HD (,,), HIV on haart therapy admitted following an episode of chest pain following dialysis which promted him to go to the ED for evaluation. Atypical Chest pain -unlikely ACS -Troponin negative, repeat pending -ECG changes noted, though no changes in contiguous leads and no concerning ST elevation or depression -Tele obs -Pain control ESRD on HD -Cause currently unknown but likely due to poor glycemic control -Will require dialysis if still in hospital on -HyperKalemia noted, Insulin 10 units with 1/2 ampule D50 given, repeat with AM labs HIV -Verify home medications and resume -Pt does not know his recent CD4 counts or viral loads but states he does follow up regularly with and HIV specialist IDDM -Glucose 373 -A1C -UA pending, pt states he makes some urine but not much -Insulin sliding scale, BGMs Q4 for now, can decrease rate once glycemic control stabilizes HTN -currently low to normotenive -Verify home meds in AM and restart bp meds as needed DVT Prophylaxis -Heparin 5000 units SQ TID FEN -Fluids: -Electrolytes: Hyperkalemia 5.3, as above BMP in AM -Nutrition: Renal Diabetic Diet Disposition Tele Observation Visit type - Emergency Visit Emergency Visit: Yes ED Registration Date: 07/17/18 Care time: The patient presented to the Emergency Department on the above date and was hospitalized for further evaluation of their emergent condition. - New Patient This patient is new to me today: Yes Date on this admission: 07/17/18 - Critical Care Critical Care patient: No
[2018-07-17] MEDS ORDERED: HEMOQUE TEST 1 EACH EACH ONE (03:48)
--- NOTE | 2018-07-17 04:27 | PN ---
Teaching Attending Note Name of Resident: Alexandre Pop ATTENDING PHYSICIAN STATEMENT I saw and evaluated the patient. I reviewed the resident's note and discussed the case with the resident. I agree with the resident's findings and plan as documented. SUBJECTIVE: 47 y/o AAM presenting to the ER for atypical chest pain. Please refer to resident history and physical for historical details. He was very upset when I came to see him with the resident team due to the fact he had already been asked questions multiple times. When informed [facility] he stated he was not going to be anyone's guinea pig and did not want to speak to people with the residents. Will need reassessed. Couldn't verify ROS, PMH, PSH, FH, Social Hx; documented as having HTN, IDDM, ESRD on TTS HD, HIV on HAART Medication list to be verified OBJECTIVE: Would not permit physical examination by the time I saw the patient. Grossly, NCAT and euvolemic with flat affect and upset mood. Labs reveal initial troponin negative EKG shows peaked T waves off the J point in the mid precordial leads Tele reviewed ASSESSMENT AND PLAN: Mr. Lares presents for atypical chest pain; he had a negative stress test within the year. Initial workup not revealing thus far. 1) Atypical CP -He is high risk but with a somewhat atypical story; we need to obtain his records from his stress test to determine further course of treatment. He may require additional testing. Consider CV consult. Trend troponins which are neg so far. ASA QD for primary prevention. Check A1c, lipids, TSH 2) HIV on HAART -Continue home tx; leukopenia 2/2 to this. Monitor 3) IDDM with hyperglycemia -Check A1c, SSI; verify home medications and place on basal insulin 4) HTN -Needs home medications verified. 5) ESRD on HD -Consult nephrology for dialysis Full Code
[2018-07-17] MEDS ORDERED: DEXTROSE 50%-WATER - 25 GM/50 ML VIAL IVPUSH ONE (04:34)
[2018-07-17] MEDS ORDERED: DEXTROSE 50%-WATER 25 GM/50 ML DISP.SYRIN ONE (04:45)
[2018-07-17] MEDS: HEPARIN NA (PORCINE) 5,000 UNITS/ML 1ML VIAL SQ SCH ×2 (06:59→14:40)
[2018-07-17] MEDS ORDERED: INSULIN SLIDING SCALE (NOVOLOG) 1 VIAL SQ SCH (07:00)
[2018-07-17] MEDS ORDERED: LOSARTAN POTASSIUM 50 MG TABLET (FP) PO SCH (10:00)
[2018-07-17] MEDS ORDERED: amLODIPine BESYLATE 10 MG TABLET (FP) PO SCH (10:00)
[2018-07-17] MEDS ORDERED: INSULIN REGULAR HUMAN 100 UNITS/ML *VIAL ONE (11:38)
--- NOTE | 2018-07-17 11:38 | PN ---
Physical Exam: SUBJECTIVE: Patient seen and examined. LOIDA overnight. Pt. denies any complaints at this time and states that. Pt. states that he has had cramping and some chest /left arm pain last week following dialysis. Pt. endorses following up with his medications and that he was actually set up for peritoneal dialysis. Upon discussion with pharmacy, Pt. is not compliant with his medications. Pt. has not picked up his HAART medications in several months and per Pt. he does not take his blood pressure medications because someone told him his HTN was cured. OBJECTIVE: Vital Signs Period Temp Pulse Resp BP Sys/Lopez Pulse Ox Last 24 Hr 98.1 F-98.2 F 86-92 16-20 112-160/68-86 100-100 GENERAL: The patient is awake, alert, and fully oriented, in no acute distress. HEAD: Normal with no signs of gross trauma. EYES: Sclera anicteric, conjunctiva clear. No ptosis. ENT: Ears normal, nares patent, oropharynx clear without exudates, moist mucous membranes. LUNGS: Breath sounds equal, clear to auscultation bilaterally, no wheezes, no crackles, no accessory muscle use. HEART: Regular rate and rhythm, S1, S2 with murmur during S1, prominent heart beat appreciated on palpation ABDOMEN: Soft, nontender, nondistended, normoactive bowel sounds, no guarding, no rebound EXTREMITIES: 2+ dorsal pedal pulses, warm, no calf tenderness, well-perfused, no edema, left axilla mildly tender to palpation, AV fistula present on left upper extremity with thrills and humming on auscultation NEUROLOGICAL: Normal speech, gait not observed. PSYCH: Normal mood, normal affect. SKIN: Warm, dry, normal turgor, no rashes or lesions noted Laboratory Results - last 24 hr 07/16/18 07/16/18 07/16/18 22:14 22:14 22:14 WBC 3.6 L RBC 3.71 L Hgb 12.2 Hct 34.1 L D MCV 92.0 MCH 33.0 MCHC 35.9 RDW 16.8 H Plt Count 189 D MPV 7.3 L Absolute Neuts (auto) 1.9 Neutrophils % 54.0 Lymphocytes % 35.4 Monocytes % 6.2 Eosinophils % 3.2 Basophils % 1.2 Nucleated RBC % 0 PT with INR 12.10 INR 1.03 Sodium 135 L Potassium 5.3 H Chloride 98 Carbon Dioxide 28 Anion Gap 9 BUN 47 H Creatinine 10.6 H* Creat Clearance w eGFR 5.28 POC Glucometer Random Glucose 373 H* Calcium 7.9 L Magnesium 2.6 H Total Bilirubin 0.4 AST 23 ALT 28 Alkaline Phosphatase 169 H Creatine Kinase 358 H Creatine Kinase Index 2.2 CK-MB (CK-2) 8.1 H Troponin I 0.02 Total Protein 7.0 Albumin 3.4 07/17/18 07/17/18 07/17/18 03:57 05:40 06:33 WBC RBC Hgb Hct MCV MCH MCHC RDW Plt Count MPV Absolute Neuts (auto) Neutrophils % Lymphocytes % Monocytes % Eosinophils % Basophils % Nucleated RBC % PT with INR INR Sodium Potassium Chloride Carbon Dioxide Anion Gap BUN Creatinine Creat Clearance w eGFR POC Glucometer 216.99337 74.48553 Random Glucose Calcium Magnesium Total Bilirubin AST ALT Alkaline Phosphatase Creatine Kinase Creatine Kinase Index CK-MB (CK-2) Troponin I < 0.02 Total Protein Albumin Active Medications Current Medications Acetaminophen (Tylenol -) 650 mg PO Q4H PRN PRN Reason: PAIN Amlodipine Besylate (Norvasc -) 10 mg PO DAILY [facility] Last Admin: 07/17/18 10:09 Dose: 10 mg Heparin Sodium (Porcine) (Heparin -) 5,000 unit SQ TID [facility] Last Admin: 07/17/18 06:59 Dose: 5,000 unit Insulin Aspart (Novolog Vial Sliding Scale -) 1 vial SQ TIDAC [facility]; Protocol Home Medications Medication Instructions Recorded Abacavir Sulfate [Abacavir] 300 mg PO DAILY 06/30/14 Lamivudine [Epivir] 150 mg PO DAILY 06/30/14 Calcium Acetate [Phoslo -] 1,334 mg PO TIDCM #90 capsule 07/16/14 Losartan Potassium [Cozaar -] 50 mg PO DAILY #30 tablet 07/16/14 Nifedipine ER [Procardia XL -] 90 mg PO DAILY@1999 #30 tab.er.24 07/16/14 Tamsulosin HCl [Flomax -] 0.4 mg PO DAILY@829 #30 cap.er.24h 07/16/14 Insulin Glargine,Hum.rec.anlog 25 units SQ HS 07/30/14 [Lantus (10mL VIAL) -] Amlodipine Besylate [Norvasc -] 10 mg PO DAILY 07/31/14 Hydrochlorothiazide [Hctz -] 25 mg PO DAILY 07/31/14 Insulin (Novolog) [Novolog Flexpen 5 units SQ DAILY 09/29/16 -] Pen Needle, Diabetic [Novofine] 5 each MC DAILY 09/29/16 Sulfamethoxazole/Trimethoprim 2 tab PO BID #28 tablet 01/02/17 [Bactrim DS -] ASSESSMENT/PLAN: 47 y.o. male w/ PMHx. HTN, IDDM, ESRD on HD(T,Th,S), HIV on HAART therapy admitted following an episode of chest pain following dialysis which promoted him to go to the ED for evaluation. R/O ACS -reduced likelihood of ACS -Troponin negative x 2 -ECG shows NSR, T-wave inversion isolated in V3 -Tele-obs -Pt. given Tylenol for pain ESRD on HD -Cause currently unknown but likely due to poor glycemic control given elevated BG to 373 and poor BP control given admission of not taking BP medications. -Pt. to receive emergent dialysis today. -Hyperkalemia noted, Insulin 10 units with 1/2 ampule D50 given, f/u Rpt. BMP. HIV vs. AIDS -Pt does not know his recent CD4 counts or viral loads but states he does follow up regularly with and HIV specialist? Pt. has not picked up his medications from the pharmacy in the last 8 months. -Pt. should follow up outpatient with his own specialist at [facility]. IDDM -Glucose 373, A; low suspicion for DKA -f/u A1C -UA pending, pt states he makes very little urine -Insulin sliding scale, BGMs Q4 for now, can decrease rate once glycemic control stabilizes HTN -Pt.s BP has been increasing -Pt. has not been compliant with home medications, will continue to monitor and avoid nephrotoxic BP medications at this time DVT Prophylaxis -Heparin 5000 units SQ TID FEN -Fluids: no IVF, encourage PO intake -Electrolytes: Hyperkalemia 5.3, as above BMP in AM -Nutrition: Renal Diabetic Diet Disposition Tele Observation Visit type - Emergency Visit Emergency Visit: Yes ED Registration Date: 07/17/18 Care time: The patient presented to the Emergency Department on the above date and was hospitalized for further evaluation of their emergent condition. - New Patient This patient is new to me today: Yes Date on this admission: 07/17/18 - Critical Care Critical Care patient: No - Discharge Referral Referred to [facility] Med P.C.: No
[2018-07-17] MEDS: INSULIN SLIDING SCALE (NOVOLOG) 1 VIAL SQ SCH ×2 (11:41→18:48)
--- NOTE | 2018-07-17 11:45 | EKG ---
Test Reason : Blood Pressure : / mmHG Vent. Rate : 087 BPM Atrial Rate : 087 BPM P-R Int : 150 ms QRS Dur : 086 ms QT Int : 382 ms P-R-T Axes : 059 093 020 degrees QTc Int : 459 ms NORMAL SINUS RHYTHM POSSIBLE LEFT ATRIAL ENLARGEMENT RIGHTWARD AXIS BORDERLINE ECG WHEN COMPARED WITH ECG OF 02-OCT-2016 14:06, NO SIGNIFICANT CHANGE WAS FOUND Confirmed by GABO MANLEY, JOSH ([id number]) on 07/17/2018 11:45:10 AM Referred By: XAVI Confirmed By:JOSH AYON MD
[2018-07-17] MEDS ORDERED: SODIUM POLYSTYRENE SULFONATE 15 GM/60 ML BOTTLE PO ONE (13:08)
[2018-07-17] MEDS ORDERED: SODIUM POLYSTYRENE SULFONATE 15 GM/60 ML BOTTLE ONE (13:24)
--- NOTE | 2018-07-17 14:01 | CONSULT ---
Consult - text type - Consultation Consultation Note: Renal consult for Hyperkalemia in setting of ESRD on HD This is a 47 year old AA gentleman with hx of ESRD on Hd, HIV, DM who presented to the ED with complaints of chest pain that started s/p his dialysis yesterday. Pt reports that he tolerated his dialysis well yesterday and was able to achieve BF of 450. No problems with his access were noted. Denies taking in excessive K containing foods. No N/V/D. No CP now or muscle weakness. No SOB. PMhx: as above Allergies: NKDA Family Hx: NC Social hx: no T/A/D ROS: as per HPI Home Medications Medication Instructions Recorded Abacavir Sulfate [Abacavir] 300 mg PO DAILY 06/30/14 Lamivudine [Epivir] 150 mg PO DAILY 06/30/14 Calcium Acetate [Phoslo -] 1,334 mg PO TIDCM #90 capsule 07/16/14 Insulin Glargine,Hum.rec.anlog 25 units SQ HS 07/30/14 [Lantus (10mL VIAL) -] Pen Needle, Diabetic [Novofine] 5 each MC DAILY 09/29/16 Amlodipine Besylate [Norvasc -] 10 mg PO DAILY #30 tablet 07/17/18 Emtricitabine [Emtriva -] 1 tab PO Q96H 07/17/18 Rilpivirine HCl [Edurant] 1 tab PO DAILY 07/17/18 Sildenafil Citrate [Viagra] 100 mg PO DAILY PRN 07/17/18 Tenofovir Disoproxil Fumarate 1 tab PO WEEKLY 07/17/18 [Viread -] Vital Signs Temperature 98.2 F 07/17/18 15:10 Pulse Rate 70 07/17/18 18:00 Respiratory Rate 18 07/17/18 18:00 Blood Pressure 132/68 07/17/18 18:00 O2 Sat by Pulse Oximetry (%) 99 07/17/18 14:44 Intake & Output 07/14/18 07/15/18 07/16/18 07/17/18 23:59 23:59 23:59 23:59 Weight 69.853 kg NAD awake and alert neck supple, no JVD RRR CTA soft NT/ND no LE edema left arm AVF + thrill or bruit CBC, BMP 07/16/18 22:14 07/17/18 17:50 Current Medications Acetaminophen (Tylenol -) 650 mg PO Q4H PRN PRN Reason: PAIN Amlodipine Besylate (Norvasc -) 10 mg PO DAILY [facility] Last Admin: 07/17/18 10:09 Dose: 10 mg Heparin Sodium (Porcine) (Heparin -) 5,000 unit SQ TID [facility] Last Admin: 07/17/18 14:40 Dose: Not Given Sodium Chloride (Normal Saline -) 250 mls @ 3,000 mls/hr IV PRN PRN PRN Reason: Hypotension during Dialysis Stop: 07/18/18 14:03 Insulin Aspart (Novolog Vial Sliding Scale -) 1 vial SQ TIDAC [facility]; Protocol Last Admin: 07/17/18 18:48 Dose: Not Given 47 year old AA gentleman with hx of ESRD on Hd, HIV, DM who presented to the ED with complaints of chest pain that started s/p his dialysis yesterday. #Hyperkalemia #Chest pain r/o ACS #ESRD on HD #HIV #Hypertension s/p short 2 hour HD session today, tolerated it well. Access pressures were WNL Repeat K after HD was at goal Chest pain now resolved and enzymes negative x 2 Can be discharged and resume outpatient HD tomorrow Thank you Krzysztof Pearce DO
[2018-07-17] MEDS ORDERED: HEPARIN NA (PORCINE) 5,000 UNITS/ML 1ML VIAL IVPUSH ONE (14:02)
[2018-07-17] MEDS ORDERED: SODIUM CHLORIDE 250 ML IV PRN (14:02)
[2018-07-17] MEDS: HEPARIN NA (PORCINE) 5,000 UNITS/ML 1ML VIAL IVPUSH SCH ×2 (17:08)
[2018-07-17 17:20] VITALS: TEMP 98.2
--- NOTE | 2018-07-17 17:27 | PN ---
Teaching Attending Note Name of Resident: Bi Russo ATTENDING PHYSICIAN STATEMENT I saw and evaluated the patient. I reviewed the resident's note and discussed the case with the resident. I agree with the resident's findings and plan as documented. SUBJECTIVE: no fever or chills. CP in L uper chest still there at time of evaluation 11: 30 am , but improved . worse with LUE movements OBJECTIVE: NAD Cv: RRr Lungs: CTAB Ext: no edema TTP over L upper chest . A/P : 47 y/o man with h/o HTN, HIV, DM , ESRD who presented with CP 1- L sided CP: likely MS due to reproducible tenderness. his EKG showed J point elevation in V2, 3 ( old ) ,TWI in III, V1. trop nl x 2 . - reportedly stress test was done in 11/04 which was neg . records requested but none were sent to us - f/u with card as out pt for further w/u if indicated . - repeat EKG 2- Hyperkalemia . due to renal disease. - repeat elevated. - gave kayeksaylate and ca - spoke to renal for HD today . 2 hours to be done - repeat Kcl 3- HTN: he stopped all his BP meds on his own. - will place him back on Norvasc 10 , and recommend f/u 4- HIV: pharmacy called, he has not picked his meds since November. - cont f/u as out p t 5- DM ; hypoglycemic this am after IV insulin administration. again hyper this afternoon - cont SSI . he does not use any short acting at home - resume his evening Long acting 6- Disp : repeat K after HD. if NL will Dc home
[2018-07-17 20:02] VITALS: BP 128/72; PULSE 80
--- NOTE | 2018-07-18 05:50 | DS ---
Physical Exam: SUBJECTIVE: Patient seen and examined. Pt. endorses feeling better. States that he takes his medications as prescribed. PT. states that he had left-sided chest pain after reveiving dialysis last week and then this week as well, with yesterday being more painful than last week. OBJECTIVE: Vital Signs Period Temp Pulse Resp BP Sys/Lopez Pulse Ox Last 24 Hr 98 F-98.2 F 70-95 17-20 125-160/60-92 99-100 PHYSICAL EXAM GENERAL: The patient is awake, alert, and fully oriented, in no acute distress. EYES: Sclera anicteric, conjunctiva clear. ENT: Ears normal, nares patent, moist mucous membranes. LUNGS: Breath sounds equal, clear to auscultation bilaterally, no wheezes, no crackles, no accessory muscle use. HEART: Regular rate and rhythm, S1, S2 with murmur in S1, heart beat palpable through chest. ABDOMEN: Soft, nontender, nondistended, normoactive bowel sounds, no guarding, no rebound EXTREMITIES: 2+ dorsal pedal pulses, warm, no calf tenderness, well-perfused, no edema, left axilla tender to palpation. NEUROLOGICAL: Normal speech, gait not observed. PSYCH: Normal mood, normal affect. SKIN: Warm, dry, normal turgor LABS Laboratory Results - last 24 hr 07/17/18 07/17/18 07/17/18 03:57 05:40 06:33 Potassium POC Glucometer 216.75536 74.92272 Troponin I < 0.02 07/17/18 07/17/18 07/17/18 11:30 11:32 17:50 Potassium 6.1 H* 3.6 POC Glucometer [phone] Troponin I HOSPITAL COURSE: Date of Admission:07/17/18 Date of Discharge: 07/18/18 Pt. observed for reproducible chest pain in the left axilla. EKG shows inverted T-waves in V3 but not in any other contiguous leads. Troponins were negative x2. Pt. was noted to be hyperkalemic and received Insulin D50 and duonebs before receiving hemodialysis. Pt.'s hyperglycemia was treated with sliding scale insulin. Consults to Nephrology appreciated. Hospital Course discussed and agreed upon with Pt. Pt. encouraged to resume home medications as detailed below and to follow up with his HIV specialist. Minutes to complete discharge: 32 Discharge Summary Reason For Visit: CHEST PAIN Current Active Problems Chest pain (Acute) Hyperkalemia (Acute) ESRD (end stage renal disease) on dialysis (Chronic) Condition: Improved - Instructions Diet, Activity, Other Instructions: You were observed for chest pain. You were found to have a high potassium level. We treated you with emergent hemodialysis. We have discontinued your Losartan Please take Norvasc 10mg Daily for your high blood pressure. Please follow up with your Primary Care Provider within 1 week. as you might need adjustment of your blood pressure meds Please follow up with your HIV specialist within 1 week to discuss your medication and to find out your CD4 count Please return to the ER if you are experiencing worsening chest pain . please start taking insulin per sliding scale with every meal. sugar inject ( units ) 150-200 2 201-250 4 251-300 6 301-350 8 351-400 10 > 400 12 and call MD Referrals: Maki Rand MD [Staff Physician] - ON STAFF,NOT [Primary Care Provider] - 1 Week Disposition: HOME - Home Medications Comprehensive Discharge Medication List: Ambulatory Orders Abacavir Sulfate [Abacavir] 300 mg PO DAILY 06/30/14 Lamivudine [Epivir] 150 mg PO DAILY 06/30/14 Calcium Acetate [Phoslo -] 1,334 mg PO TIDCM #90 capsule 07/16/14 Insulin Glargine,Hum.rec.anlog [Lantus (10mL VIAL) -] 25 units SQ HS 07/30/14 Pen Needle, Diabetic [Novofine] 5 each MC DAILY 09/29/16 Amlodipine Besylate [Norvasc -] 10 mg PO DAILY #30 tablet 07/17/18 Emtricitabine [Emtriva -] 1 tab PO Q96H 07/17/18 Insulin Aspart [Novolog] See Protocol SQ AC #10 cartridge 07/17/18 Rilpivirine HCl [Edurant] 1 tab PO DAILY 07/17/18 Sildenafil Citrate [Viagra] 100 mg PO DAILY PRN 07/17/18 Tenofovir Disoproxil Fumarate [Viread -] 1 tab PO WEEKLY 07/17/18 This patient is new to me today: Yes Date on this admission: 07/17/18 Emergency Visit: Yes ED Registration Date: 07/17/18 Care time: The patient presented to the Emergency Department on the above date and was hospitalized for further evaluation of their emergent condition. Critical Care patient: No - Discharge Referral Referred to [facility] Med P.C.: No
--- NOTE | 2018-07-18 11:58 | EKG ---
Test Reason : Blood Pressure : / mmHG Vent. Rate : 088 BPM Atrial Rate : 088 BPM P-R Int : 146 ms QRS Dur : 088 ms QT Int : 402 ms P-R-T Axes : 061 091 033 degrees QTc Int : 486 ms NORMAL SINUS RHYTHM POSSIBLE LEFT ATRIAL ENLARGEMENT RIGHTWARD AXIS PROLONGED QT ABNORMAL ECG WHEN COMPARED WITH ECG OF 17-JUL-2018 09:38, NONSPECIFIC T WAVE ABNORMALITY NOW EVIDENT IN LATERAL LEADS Confirmed by ANNE MARIE MANLEY, JUAREZ ([id number]) on 07/18/2018 11:58:36 AM Referred By: Confirmed By:JUAREZ KENNEY MD
== END 2018-07-17 20:02 | disposition home or self-care (01) ==
LOC: JER 20:08 → JERBED 07-17 01:48
PROVIDERS: ADMIT Internal Medicine; ATTEND Internal Medicine
PROC: 3E033VG Introduction of Insulin into Peripheral Vein, Percutaneous Approach (ICD-10-PCS; principal; 2018-07-17)
PROC: 3E033GC Introduction of Other Therapeutic Substance into Peripheral Vein, Percutaneous Approach (ICD-10-PCS; 2018-07-17)
DX: R07.89 Other chest pain (principal); E11.22 Type 2 diabetes mellitus with diabetic chronic kidney disease; E11.65 Type 2 diabetes mellitus with hyperglycemia; I12.0 Hypertensive chronic kidney disease with stage 5 chronic kidney disease or end stage renal disease; N18.6 End stage renal disease; Z99.2 Dependence on renal dialysis; Z79.4 Long term (current) use of insulin; D64.9 Anemia, unspecified; E87.5 Hyperkalemia; Z21 Asymptomatic human immunodeficiency virus [HIV] infection status
CPT/HCPCS: 36415; 71046-TC-FY; 80053; 82550; 82553; 82962; 83735; 84132; 84484; 85025; 85610; 93005; 93010; 96374; 96375; 96376; 99285-25; G0378; J1644

== ENCOUNTER 2019-05-13 20:20 | Emergency (ER) | payer BC, OTHER ==
--- NOTE | 2019-05-13 20:23 | PDOC ---
Rapid Medical Evaluation Time Seen by Provider: 05/13/19 20:22 Medical Evaluation: Allergies Allergy/AdvReac Type Severity Reaction Status Date / Time No Known Drug Allergies Allergy Verified 07/16/18 20:34 05/13/19 20:22 HPI: Pt states he needs dialysis PE: No gross deficits ORDERS: LABS Discharge Disposition - Diagnosis ESRD (end stage renal disease) on dialysis - Referrals - Patient Instructions - Post Discharge Activity
[2019-05-13 20:27] VITALS: BP 167/95; PULSE 90; TEMP 98.6; BMI 21.7
[2019-05-13 20:58] LABS: EOS % 2.8 % (0-4.5); HEMATOCRIT 37.1 % (35.4-49); HEMOGLOBIN 12.4 GM/dL (11.7-16.9); LYMPH % 40.3 % (8-40); MCH 31.5 pg (25.7-33.7); MCHC 33.5 g/dl (32.0-35.9); MEAN CELL VOLUME 94.1 fl (80-96); MEAN PLT VOLUME 6.9 fl (7.5-11.1); MONO % 5.5 % (3.8-10.2); NEUT % 50.4 % (42.8-82.8); PLATELET COUNT 213 K/MM3 (134-434); RBC 3.94 M/mm3 (4.00-5.60); RDW 15.6 % (11.9-15.9); WHITE BLOOD COUNT 5.4 K/mm3 (4.0-10.0)
[2019-05-13 21:22] LABS: BILIRUBIN,TOTAL 0.5 mg/dL (0.2-1); CALCIUM 9.2 mg/dL (8.5-10.1); TOT PROT 7.6 g/dl (6.4-8.2)
[2019-05-13 21:25] LABS: POTASSIUM 6.3 mmol/L (3.5-5.1)
--- NOTE | 2019-05-13 22:56 | PDOC ---
Attending Attestation - Resident Resident Name: Emmett Isbell - ED Attending Attestation I have performed the following: I have examined & evaluated the patient, The case was reviewed & discussed with the resident, I agree w/resident's findings & plan - HPI HPI: 05/13/19 23:47 see resident hpi - Physicial Exam PE: 05/13/19 23:47 agree with resident exam - Medical Decision Making 05/13/19 23:47 48-year-old male in need of dialysis In the process of staff calling nephrology for consultation patient became impatient and eloped from the emergency department He was alert oriented 4 with steady gait and able to communicate his needs He was aware that were on the phone with nephrology and in the process of creating a plan for his hyperkalemia and
--- NOTE | 2019-05-13 23:08 | PDOC ---
History of Present Illness - General Chief Complaint: Respiratory Stated Complaint: TO BE SEEN Time Seen by Provider: 05/13/19 20:22 History Source: Patient Exam Limitations: No Limitations - History of Present Illness Initial Comments: Abbi Lares is a 48 yo m w a pmh of ESRD on HD (, , S) HTN, and IDDM who presents to the ER stating he needs to be dialyzed. He usually gets his dialysis on Sunday but missed it today. He has no complaints aside from stating he needs dialysis. Patient has an AV fistula in the left upper extremity. PCP: Dr. Lai Renal: Dr. Maki trujillo + Dr. Pearce Past History - Past Medical History Allergies/Adverse Reactions: Allergies Allergy/AdvReac Type Severity Reaction Status Date / Time No Known Drug Allergies Allergy Verified 05/13/19 20:26 Home Medications: Ambulatory Orders Abacavir Sulfate [Abacavir] 300 mg PO DAILY 06/30/14 Lamivudine [Epivir] 150 mg PO DAILY 06/30/14 Calcium Acetate [Phoslo -] 1,334 mg PO TIDCM #90 capsule 07/16/14 Insulin Glargine,Hum.rec.anlog [Lantus (10mL VIAL) -] 25 units SQ HS 07/30/14 Pen Needle, Diabetic [Novofine] 5 each MC DAILY 09/29/16 Amlodipine Besylate [Norvasc -] 10 mg PO DAILY #30 tablet 07/17/18 Emtricitabine [Emtriva -] 1 tab PO Q96H 07/17/18 Insulin Aspart [Novolog] See Protocol SQ AC #10 cartridge 07/17/18 Rilpivirine HCl [Edurant] 1 tab PO DAILY 07/17/18 Sildenafil Citrate [Viagra] 100 mg PO DAILY PRN 07/17/18 Tenofovir Disoproxil Fumarate [Viread -] 1 tab PO WEEKLY 07/17/18 Anemia: Yes Asthma: No Cancer: No Cardiac Disorders: No CVA: No COPD: No CHF: No Dementia: No Diabetes: Yes GI Disorders: No Disorders: Yes (RENAL FAILURE [id number]) HTN: Yes Hypercholesterolemia: No Kidney Stones: Yes (ESRD) Liver Disease: No Seizures: No Thyroid Disease: No Other medical history: left upper arm graft - Surgical History Abdominal Surgery: No Appendectomy: No Cardiac Surgery: No Cholecystectomy: No Lung Surgery: No Neurologic Surgery: No Orthopedic Surgery: No - Family Medical History Family Disease History: Diabetes: Father - Immunization History Td Vaccination: Yes Immunization Up to Date: No - Psycho Social/Smoking Cessation Hx Smoking Status: No Smoking History: Never smoked Have you smoked in the past 12 months: No Number of Cigarettes Smoked Daily: 0 Hx Alcohol Use: No Drug/Substance Use Hx: No Substance Use Type: None Hx Substance Use Treatment: No Review of Systems - Review of Systems Able to Perform ROS?: Yes Comments:: CONSTITUTIONAL: Absent: fever, no chills, no fatigue EYES: Absent: visual changes ENT: Absent: ear pain, no sore throat CARDIOVASCULAR: Absent: chest pain, no palpitations RESPIRATORY: Absent: cough, no SOB GI: Absent: abdominal pain, no nausea, no vomiting, no constipation, no diarrhea GENITOURINARY: Absent: dysuria, no frequency, no hematuria MUSKULOSKELETAL: Absent: back pain, no arthralgia, no myalgia SKIN: Absent: rash NEURO: Absent: headache *Physical Exam - Vital Signs Last Vital Signs Temp Pulse Resp BP Pulse Ox 98.6 F 90 18 167/95 94 L 05/13/19 20:23 05/13/19 20:23 05/13/19 20:23 05/13/19 20:23 05/13/19 20:23 - Physical Exam Comments: GENERAL: Well-appearing, well-nourished. No apparent distress. HEENT: Normocephalic, atraumatic. PERRL, EOM intact. CARDIOVASCULAR: Normal S1, S2. Regular rate and rhythm. PULMONARY: No evidence of respiratory distress. Lungs clear to auscultation bilaterally. No wheezing, rales or rhonchi. ABDOMEN: Soft, non-distended, non-tender. EXTREMITIES: LUE fistula. Normal ROM in all four extremities. No gross deformities. SKIN: Warm, dry. No rash NEUROLOGICAL: No focal neurological deficits. ED Treatment Course - LABORATORY CBC & Chemistry Diagram: 05/13/19 20:41 05/13/19 20:41 - ADDITIONAL ORDERS Additional order review: Laboratory Results 05/13/19 20:41 Sodium 138 Potassium 6.3 H* Chloride 100 Carbon Dioxide 25 Anion Gap 13 BUN 108.0 H* Creatinine 19.0 H* Est GFR (CKD-EPI)AfAm 2.94 Est GFR (CKD-EPI)NonAf 2.54 Random Glucose 157 H Calcium 9.2 Total Bilirubin 0.5 AST 20 ALT 26 Alkaline Phosphatase 105 Total Protein 7.6 Albumin 4.0 05/13/19 20:41 RBC 3.94 L MCV 94.1 MCHC 33.5 RDW 15.6 MPV 6.9 L Neutrophils % 50.4 Lymphocytes % 40.3 H Monocytes % 5.5 Eosinophils % 2.8 Basophils % 1.0 Medical Decision Making - Medical Decision Making Abbi Lares is a 48 yo m w a pmh of ESRD on HD (, , S) HTN, and IDDM who presents to the ER stating he needs to be dialyzed. He usually gets his dialysis on Sunday but missed it today. He has no complaints aside from stating he needs dialysis. Patient has an AV fistula in the left upper extremity. PCP: Dr. Lai Renal: Dr. Maki trujillo + Dr. Pearce Vital Signs Temp Pulse Resp BP Pulse Ox 98.6 F 90 18 167/95 94 L 05/13/19 20:23 05/13/19 20:23 05/13/19 20:23 05/13/19 20:23 05/13/19 20:23 MDM: Patient presents for dialysis Plan: Labs, ekg, admit for dialysis Labs: patient is hyperkalemic at 6.3 - Giving calcium, insulin, glucose, lokelma Renal consult: I spoke with Dr. Gambino who agreed with our current management plan - We are going to correct the potassium to the 5's then DC the patient home to get dialysis tomorrow. Patient refused any IV and Eloped from the ER before we could give him medications to lower his potassium. *DC/Admit/Observation/Transfer Diagnosis at time of Disposition: ESRD (end stage renal disease) on dialysis, Hyperkalemia - Discharge Dispostion Disposition: ELOPED Condition at time of disposition: Stable Decision to Admit order: Yes - Referrals - Patient Instructions - Post Discharge Activity Discharge - Discharge Information Problems reviewed: Yes Clinical Impression/Diagnosis: ESRD (end stage renal disease) on dialysis, Hyperkalemia Condition: Stable Disposition: ELOPED - Follow up/Referral - Patient Discharge Instructions - Post Discharge Activity
[2019-05-13] MEDS ORDERED: CALCIUM GLUCONATE 10% - 1,000 MG/10 ML VIAL IVPUSH ONE (23:13)
[2019-05-13] MEDS ORDERED: INSULIN REGULAR HUMAN 100 UNITS/ML *VIAL IVPUSH ONE (23:14)
[2019-05-13] MEDS ORDERED: DEXTROSE 50%-WATER - 25 GM/50 ML VIAL IVPUSH ONE (23:14)
[2019-05-14] MEDS ORDERED: SODIUM ZIRCONIUM CYCLOSILICATE (LOKELMA) 5 GM PACKET PO ONE ×2 (23:15→23:41)
== END 2019-05-13 23:45 | disposition left against medical advice (07) ==
LOC: JER 20:20
DX: E11.22 Type 2 diabetes mellitus with diabetic chronic kidney disease (principal); I10 Essential (primary) hypertension
CPT/HCPCS: 36415; 80053; 85025; 99283-25

== ENCOUNTER 2019-06-14 17:38 | Inpatient (IN) | payer OTHER, BC ==
--- NOTE | 2019-06-14 18:36 | PDOC ---
*Physical Exam - Vital Signs Last Vital Signs Temp Pulse Resp BP Pulse Ox 100.3 F H 129 H 18 130/60 98 06/14/19 17:40 06/14/19 17:40 06/14/19 17:40 06/14/19 17:40 06/14/19 17:40 ED Treatment Course - LABORATORY CBC & Chemistry Diagram: 06/19/19 06:05 06/19/19 06:05 Medical Decision Making - Medical Decision Making 06/14/19 18:35 48 yo M DM, ESRD on HD (T,R,S) on the transplant list, HTN p/w fevers Fevers began yesterday Pt also notes a cough No vomiting or diarrhea Pt will need blood cultures, lactate, labs CXR Does not make urine, no UA indicated Pt signed out to night team Anticipate admission Discharge - Discharge Information Problems reviewed: Yes Clinical Impression/Diagnosis: Essential hypertension, ESRD (end stage renal disease) on dialysis, HIV disease , Fever and chills, Right groin pain Condition: Stable - Follow up/Referral - Patient Discharge Instructions - Post Discharge Activity
[2019-06-14] MEDS ORDERED: ACETAMINOPHEN 325 MG TABLET (FP) PO ONE (18:40)
[2019-06-14 18:45] LABS: BASO % 0.2 % (0-2.0); EOS % 0.1 % (0-4.5); HEMATOCRIT 35.9 % (35.4-49); HEMOGLOBIN 12.1 GM/dL (11.7-16.9); LYMPH % 7.4 % (8-40); MCH 32.5 pg (25.7-33.7); MCHC 33.8 g/dl (32.0-35.9); MEAN PLT VOLUME 7.3 fl (7.5-11.1); MONO % 6.1 % (3.8-10.2); NEUT % 86.2 % (42.8-82.8); PLATELET COUNT 150 K/MM3 (134-434); RBC 3.73 M/mm3 (4.00-5.60); RDW 15.5 % (11.9-15.9); WHITE BLOOD COUNT 9.6 K/mm3 (4.0-10.0)
[2019-06-14] MEDS ORDERED: ACETAMINOPHEN 325 MG TABLET (FP) ONE (18:46)
--- NOTE | 2019-06-14 18:46 | PDOC ---
History of Present Illness - General Chief Complaint: Pain, Acute Stated Complaint: LEG PAINS Time Seen by Provider: 06/14/19 18:07 History Source: Patient Exam Limitations: Clinical Condition - History of Present Illness Initial Comments: 06/14/19 18:41 Patient with a past medical history of HIV, end-stage renal disease on dialysis , hypertension and insulin-dependent diabetes presented with complaint of 2-day history of right groin pain, intermittent dry cough, fever and chills. Patient reported he had dialysis this morning and was shivering during dialysis when asked to come to ED for evaluation. Patient did not take anything for fever. Denies nausea, vomiting, chest pain, dizziness, weakness, abdominal pain. Denies any other symptoms Is this a multiple visit Asthma Patient?: No Past History - Past Medical History Allergies/Adverse Reactions: Allergies Allergy/AdvReac Type Severity Reaction Status Date / Time No Known Drug Allergies Allergy Verified 06/14/19 17:43 Home Medications: Ambulatory Orders Abacavir Sulfate [Abacavir] 300 mg PO DAILY 06/30/14 Lamivudine [Epivir] 150 mg PO DAILY 06/30/14 Calcium Acetate [Phoslo -] 1,334 mg PO TIDCM #90 capsule 07/16/14 Insulin Glargine,Hum.rec.anlog [Lantus (10mL VIAL) -] 25 units SQ HS 07/30/14 Pen Needle, Diabetic [Novofine] 5 each MC DAILY 09/29/16 Amlodipine Besylate [Norvasc -] 10 mg PO DAILY #30 tablet 07/17/18 Emtricitabine [Emtriva -] 1 tab PO Q96H 07/17/18 Insulin Aspart [Novolog] See Protocol SQ AC #10 cartridge 07/17/18 Rilpivirine HCl [Edurant] 1 tab PO DAILY 07/17/18 Sildenafil Citrate [Viagra] 100 mg PO DAILY PRN 07/17/18 Tenofovir Disoproxil Fumarate [Viread -] 1 tab PO WEEKLY 07/17/18 Anemia: Yes Asthma: No Cancer: No Cardiac Disorders: No CVA: No COPD: No CHF: No Dementia: No Diabetes: Yes GI Disorders: No Disorders: Yes (RENAL FAILURE ) HTN: Yes Hypercholesterolemia: No Kidney Stones: Yes (ESRD) Liver Disease: No Seizures: No Thyroid Disease: No - Surgical History Abdominal Surgery: No Appendectomy: No Cardiac Surgery: No Cholecystectomy: No Lung Surgery: No Neurologic Surgery: No Orthopedic Surgery: No - Immunization History Td Vaccination: Yes Immunization Up to Date: No - Psycho Social/Smoking Cessation Hx Smoking Status: No Smoking History: Never smoked Have you smoked in the past 12 months: No Number of Cigarettes Smoked Daily: 0 Information on smoking cessation initiated: No Hx Alcohol Use: No Drug/Substance Use Hx: No Substance Use Type: None Hx Substance Use Treatment: No Review of Systems - Review of Systems Able to Perform ROS?: Yes Is the patient limited Albanian proficient: No Constitutional: Yes: Chills, Fever, Malaise. No: Weakness HEENTM: No: Symptoms Reported, See HPI, Eye Pain, Blurred Vision, Tearing, Recent change in vision, Double Vision, Cataracts, Ear Pain, Ocular Prothesis, Ear Discharge, Nose Pain, Nose Congestion, Tinnitus, Nose Bleeding, Hearing Loss , Throat Pain, Throat Swelling, Mouth Pain, Dental Problems, Difficulty Swallowing, Mouth Swelling, Other Respiratory: Yes: Symptoms reported, See HPI, Cough. No: Orthopnea, Shortness of Breath, SOB with Exertion, SOB at Rest, Stridor, Wheezing, Productive cough, Hemoptysis, Other Cardiac (ROS): No: Symptoms Reported, See HPI, Chest Pain, Edema, Irregular Heart Rate, Lightheadedness, Palpitations, Syncope, Chest Tightness, Other ABD/GI: No: Symptoms Reported, Abdominal Distended, Abd. Pain w/ defecation, Blood Streaked Bowels, Constipated, Diarrhea, Difficulty Swallowing, Nausea, Poor Appetite, Poor Fluid Intake, Rectal Bleeding, Vomiting, Abdominal cramping : Yes: Symptoms Reported, See HPI, Pain (right groin pain). No: Testicular Mass, Testicular Swelling, Testicular Pain Musculoskeletal: No: Symptoms Reported, Muscle Weakness Integumentary: No: Symptoms Reported, Change in Color, Erythema, Rash Neurological: No: Dizziness All Other Systems: Reviewed and Negative *Physical Exam - Vital Signs Last Vital Signs Temp Pulse Resp BP Pulse Ox 100.3 F H 129 H 18 130/60 98 06/14/19 17:40 06/14/19 17:40 06/14/19 17:40 06/14/19 17:40 06/14/19 17:40 - Physical Exam Comments: 06/14/19 18:47 GENERAL: Well developed, well nourished. Awake and alert. No acute distress. HEENT: Normocephalic, atraumatic. PERRLA, EOMI. No conjunctival pallor. Sclera are non-icteric. Moist mucous membranes. Oropharynx is clear. NECK: Supple. Full ROM. CARDIOVASCULAR: Regular rate and rhythm. No murmurs, rubs, or gallops. Distal pulses are 2+ and symmetric. PULMONARY: No evidence of respiratory distress. Lungs clear to auscultation bilaterally. No wheezing, rales or rhonchi. ABDOMINAL: Soft. Non-tender. Non-distended. No rebound or guarding. No organomegaly. Normoactive bowel sounds. MUSCULOSKELETAL Normal range of motion at all joints. : mild tenderness over right mobile groin. no testicular swelling or tenderness. SKIN: Warm and dry. Normal capillary refill. No rashes. No skin erythema NEUROLOGICAL: Alert, awake, appropriate. Gait is normal without ataxia. PSYCHIATRIC: Cooperative. Good eye contact. Appropriate mood General Appearance: Yes: Nourished, Appropriately Dressed. No: Apparent Distress ED Treatment Course - LABORATORY CBC & Chemistry Diagram: 06/14/19 18:20 06/14/19 18:20 - RADIOLOGY Radiology Studies Ordered: Category Date Time Status CHEST PA & LAT [RAD] Stat Radiology 06/14/19 18:14 Ordered SCROTUM AND CONTENTS US [US] Stat Ultrasound 06/14/19 18:15 Ordered Medical Decision Making - Medical Decision Making 06/14/19 18:44 Patient with a past medical history of HIV, end-stage renal disease on dialysis , hypertension and insulin-dependent diabetes presented with complaint of 2-day history of right groin pain, intermittent dry cough, fever and chills. Patient reported he had dialysis this morning and was shivering during dialysis when asked to come to ED for evaluation. Patient did not take anything for fever. Denies nausea, vomiting, chest pain, dizziness, weakness, abdominal pain. Denies any other symptoms Exam was significant for low-grade fever of 100.3 F orally. Patient tachycardic. Mild tenderness to right groin area over single palpable lymph node in right groin. No testicular swelling or tenderness. Lungs clear to auscultation bilateral. Symptoms likely lymphadenitis with fever versus URI with fever versus less likely pneumonia. CBC, CMP labs ordered. Blood culture lab ordered. Chest x-ray ordered to rule out pneumonia. Tylenol 650 mg p.o. ordered for fever. Treat based on lab and imaging results 06/14/19 19:55 CBC wnl. chemistry lab shows marked elevated creatinine level with elevated glucose level. Given patient history of immunocompromise, patient will be admitted for fever work-up. Microblog sent to hospitalist for admission 06/14/19 20:38 06/14/19 21:30 Patient seen and admitted to hospitalist for management of fever Discharge - Discharge Information Problems reviewed: Yes Clinical Impression/Diagnosis: Essential hypertension, ESRD (end stage renal disease) on dialysis, HIV disease , Fever and chills, Right groin pain Condition: Stable - Admission Yes - Follow up/Referral - Patient Discharge Instructions - Post Discharge Activity
[2019-06-14 19:24] LABS: ALBUMIN 3.6 g/dl (3.4-5.0); BILIRUBIN,TOTAL 0.9 mg/dL (0.2-1); BLOOD UREA NITROGEN 33.8 mg/dL (7-18); POTASSIUM 4.9 mmol/L (3.5-5.1); TOT PROT 7.6 g/dl (6.4-8.2)
[2019-06-14 19:30] LABS: CREATININE 8.6 mg/dL (0.55-1.3)
[2019-06-14] MEDS ORDERED: SODIUM CHLORIDE 250 ML IV STA (20:43)
--- NOTE | 2019-06-14 20:53 | PN ---
Teaching Attending Note Name of Resident: Patty Melendez ATTENDING PHYSICIAN STATEMENT I saw and evaluated the patient. I reviewed the resident's note and discussed the case with the resident. I agree with the resident's findings and plan as documented. SUBJECTIVE: Patient is a 48 year old man with PMH of HIV disease (on HAART), End-stage renal disease on dialysis, Hypertension and Insulin-treated DM who presents with complaint of 2-day history of right groin pain, intermittent dry cough, fever and chills. Patient reported he had hemodialysis this morning and was shivering during hemodialysis when asked to come to ER for evaluation. Patient did not take anything for fever. Denies nausea, vomiting, chest pain, dizziness , weakness, abdominal pain. Denies smoking, alcohol or illicit drug use. Has FH of DM and HTN. OBJECTIVE: Alert Vital Signs Period Temp Pulse Resp BP Sys/Lopez Pulse Ox Last 24 Hr 98.4 F-100.3 F 104-129 16-18 126-131/60-76 98-98 HEENT: No Jaundice, eye redness or discharge, PERRLA, EOMI. Normocephalic, atraumatic. External ears are normal and hearing is grossly intact. No nasal discharge. Neck: Supple, nontender. No palpable adenopathy or thyromegaly. No JVD Chest: Good effort. Clear to auscultation and percussion. Heart: Regular. No S3, rub or murmur Abdomen: Not distended, soft, nontender and no HSM. No rebound or guarding. Normal bowel sounds. Ext: Peripheral pulses intact. No leg edema. Left arm AV fistula with bruit and thrill. Right groin tender lymphadenopathy. Amputated right first and second toes. Skin: Warm and dry. No petechiae, rash or ecchymosis. Neuro: Alert. Oriented x3. CN 2-12 grossly intact. Sensation grossly intact in all four extremities and DTR are symmetric. Psych: Appropriate mood and affect. Good insight. Current Medications Generic Name Dose Route Start Last Admin Trade Name Freq PRN Reason Stop Dose Admin Sodium Chloride 250 mls @ 250 mls/hr 06/14/19 20:43 06/14/19 20:57 Normal Saline - IV 06/14/19 21:42 250 mls/hr ASDIR STA Administration Home Medications Medication Instructions Recorded Abacavir Sulfate [Abacavir] 300 mg PO DAILY 06/30/14 Lamivudine [Epivir] 150 mg PO DAILY 06/30/14 Calcium Acetate [Phoslo -] 1,334 mg PO TIDCM #90 capsule 07/16/14 Insulin Glargine,Hum.rec.anlog 25 units SQ HS 07/30/14 [Lantus (10mL VIAL) -] Pen Needle, Diabetic [Novofine] 5 each MC DAILY 09/29/16 Amlodipine Besylate [Norvasc -] 10 mg PO DAILY #30 tablet 07/17/18 Emtricitabine [Emtriva -] 1 tab PO Q96H 07/17/18 Insulin Aspart [Novolog] See Protocol SQ AC #10 cartridge 07/17/18 Rilpivirine HCl [Edurant] 1 tab PO DAILY 07/17/18 Sildenafil Citrate [Viagra] 100 mg PO DAILY PRN 07/17/18 Tenofovir Disoproxil Fumarate 1 tab PO WEEKLY 07/17/18 [Viread -] Abnormal Lab Results 06/14/19 06/14/19 18:20 18:20 RBC 3.73 L MPV 7.3 L Absolute Neuts (auto) 8.3 H Neutrophils % 86.2 H D Lymphocytes % 7.4 L D Chloride 97 L BUN 33.8 H Creatinine 8.6 H* Random Glucose 244 H ASSESSMENT AND PLAN: 1. Sepsis of unknown source/Right inguinal lymphadenopathy/ESRD/HIV disease - Etiology of right scrotal pain is unclear - no scrotal swelling or tenderness - may signal referred pain. Scrotal sonogram didnot reveal any acute abnormality. Will get blood cultures, CT scan of abdomen/pelvis/groin and treat with IV Zosyn and Vancomycin - adjusted for GFR. EKG shows sinus tachycardia, LAE, LVH and nonspecific T wave changes. No acute abnormality on CXR. Consult ID and IR for lymph node biopsy. Will continue comprehensive care for all of patients comorbid conditions including HAART for HIV disease. Consult nephrology to arrange for hemodialysis. 2. DM For now, we will hold the home diabetes drugs and implement sliding scale insulin regimen. Provide comprehensive diabetes care with patient teaching and counseling about the importance of adherence to prescribed diabetes regimen, euglycemia, eye care and foot care. 3. DVT prophylaxis - Heparin 5000u sq tid. 4. Advance directives - Full code
--- NOTE | 2019-06-14 21:18 | HP ---
CHIEF COMPLAINT: R groin pain PCP: Dr. Massey Nephrology: Dr. Rand HISTORY OF PRESENT ILLNESS: Patient is a 48 year old male with PMH of HIV, ESRD, IDDM, HTN who presents with R groin pain for two days. Pain is constant and worse with palpation. Pt also complains of associated fevers and chills. He denies any abdominal pain, testicular pain, nausea, vomiting, diarrhea or changes in bowel movements. Pt does not urinate on his own. He did not take anything for pain. He has never experienced these symptoms before. Pt denies any sick contacts. He is not sexually active. Today, pt was receiving dialysis and was found to be feverish and shivering so he was sent to the ED. ER course was notable for: (1) US: no intratesticular mass, normal arterial and venous waveforms, no varicocele, several enlarged lymph nodes on R (2) Low grade fever: 100.3, no leukocytosis (3) Recent Travel: denies PAST MEDICAL HISTORY: As above PAST SURGICAL HISTORY: AV fistula x5 years ago Amputation of R 1st and 2nd toes x2 years ago Cataracts Social History: Smoking: denies Alcohol: denies Drugs: denies Allergies No Known Drug Allergies Allergy (Verified 06/14/19 17:43) HOME MEDICATIONS: Home Medications Medication Instructions Recorded Abacavir Sulfate [Abacavir] 300 mg PO DAILY 06/30/14 Lamivudine [Epivir] 150 mg PO DAILY 06/30/14 Calcium Acetate [Phoslo -] 1,334 mg PO TIDCM #90 capsule 07/16/14 Insulin Glargine,Hum.rec.anlog 25 units SQ HS 07/30/14 [Lantus (10mL VIAL) -] Pen Needle, Diabetic [Novofine] 5 each MC DAILY 09/29/16 Amlodipine Besylate [Norvasc -] 10 mg PO DAILY #30 tablet 07/17/18 Emtricitabine [Emtriva -] 1 tab PO Q96H 07/17/18 Insulin Aspart [Novolog] See Protocol SQ AC #10 cartridge 07/17/18 Rilpivirine HCl [Edurant] 1 tab PO DAILY 07/17/18 Sildenafil Citrate [Viagra] 100 mg PO DAILY PRN 07/17/18 Tenofovir Disoproxil Fumarate 1 tab PO WEEKLY 07/17/18 [Viread -] REVIEW OF SYSTEMS CONSTITUTIONAL: fever, chills Absent: diaphoresis, generalized weakness, malaise, loss of appetite, weight change HEENT: Absent: rhinorrhea, nasal congestion, throat pain, throat swelling, difficulty swallowing, mouth swelling, ear pain, eye pain, visual changes CARDIOVASCULAR: Absent: chest pain, syncope, palpitations, irregular heart rate, lightheadedness , peripheral edema RESPIRATORY: Absent: cough, shortness of breath, dyspnea with exertion, orthopnea, wheezing, stridor, hemoptysis GASTROINTESTINAL: Absent: abdominal pain, abdominal distension, nausea, vomiting, diarrhea, constipation, melena, hematochezia GENITOURINARY: R groin pain Absent: dysuria, frequency, urgency, hesitancy, hematuria, flank pain, genital pain MUSCULOSKELETAL: Absent: myalgia, arthralgia, joint swelling, back pain, neck pain SKIN: Absent: rash, itching, pallor HEMATOLOGIC/IMMUNOLOGIC: Absent: easy bleeding, easy bruising, lymphadenopathy, frequent infections ENDOCRINE: Absent: unexplained weight gain, unexplained weight loss, heat intolerance, cold intolerance NEUROLOGIC: Absent: headache, focal weakness or paresthesias, dizziness, unsteady gait, seizure, mental status changes, bladder or bowel incontinence PSYCHIATRIC: Absent: anxiety, depression, suicidal or homicidal ideation, hallucinations. PHYSICAL EXAMINATION Vital Signs - 24 hr 06/14/19 06/14/19 06/14/19 17:40 21:07 21:16 Temperature 100.3 F H 98.4 F 99.6 F Pulse Rate 129 H Pulse Rate [ 106 H 104 H Right Radial] Respiratory 18 16 18 Rate Blood Pressure 130/60 Blood Pressure 131/76 126/72 [Right Arm] O2 Sat by Pulse 98 98 98 Oximetry (%) GENERAL: Awake, alert, and fully oriented, in no acute distress. HEAD: Normal with no signs of trauma. EYES: Pupils equal, round and reactive to light, extraocular movements intact, sclera anicteric, conjunctiva clear. No lid lag. EARS, NOSE, THROAT: Ears normal, nares patent, oropharynx clear without exudates. Moist mucous membranes. NECK: Normal range of motion, supple without lymphadenopathy, JVD, or masses. LUNGS: Breath sounds equal, clear to auscultation bilaterally. No wheezes, and no crackles. No accessory muscle use. HEART: Regular rate and rhythm, normal S1 and S2 without murmur, rub or gallop. ABDOMEN: Soft, nontender, not distended, normoactive bowel sounds, no guarding, no rebound, no masses. No hepatomegaly or splenomegaly. GENITOURINARY: Several palpable, tender lymph nodes on R, no testicular swelling or tenderness MUSCULOSKELETAL: Normal range of motion at all joints. No bony deformities or tenderness. No CVA tenderness. UPPER EXTREMITIES: 2+ pulses, warm, well-perfused. No cyanosis. No clubbing. No peripheral edema. LOWER EXTREMITIES: 2+ pulses, warm, well-perfused. No calf tenderness. No peripheral edema. NEUROLOGICAL: Cranial nerves II-XII intact. Normal speech. Normal gait. PSYCHIATRIC: Cooperative. Good eye contact. Appropriate mood and affect. SKIN: Warm, dry, normal turgor, no rashes or lesions noted, normal capillary refill. Laboratory Results - last 24 hr CBC, BMP 06/14/19 18:20 06/14/19 18:20 Imaging: US scrotum: no intratesticular mass, normal arterial and venous waveforms, no varicocele, several enlarged lymph nodes on R ASSESSMENT/PLAN: Patient is a 48 year old male with PMH of HIV, ESRD (on HD , , S), IDDM, HTN who presents with R groin pain for two days. #Lymphadenopathy R groin US scrotum: no intratesticular mass, normal arterial and venous waveforms, no varicocele, several enlarged lymph nodes on Right CTAP ordered to r/o underlying mass Test for chlamydia, gonorrhea Start on vancomycin 1gm daily, zosyn 2.25 BID for empiric tx. F/u vanc trough in am as pt is ESRD F/u blood cx Tylenol prn for fevers and pain ID consulted, Dr. Rodney. F/u recommendations Pt may benefit from lymph node biopsy depending on how he progresses #ESRD Resume HD (, ) Consulted nephrology, Dr. Kearney Cont to monitor renal function #HIV Resume home meds once rec'd F/u viral load (unsure how to order, refer to ID) #HTN Cont home meds: norvasc 10m daily #IDDM Pt receives 25 units HS Start SSI during admission #DVT ppx Heparin TID #FEN No fluids, pt on HD Renal diet #Dispo Monitor on med-surg Visit type - Emergency Visit Emergency Visit: Yes ED Registration Date: 06/14/19 Care time: The patient presented to the Emergency Department on the above date and was hospitalized for further evaluation of their emergent condition. - New Patient This patient is new to me today: Yes Date on this admission: 06/15/19 - Critical Care Critical Care patient: No ATTENDING PHYSICIAN STATEMENT I saw and evaluated the patient. I reviewed the resident's note and discussed the case with the resident. I agree with the resident's findings and plan as documented. SUBJECTIVE: OBJECTIVE: ASSESSMENT AND PLAN:
[2019-06-14] MEDS ORDERED: PIPERACILLIN/TAZOB 2.25 GM 2.25 GM in DEXTROSE 5%-WATER - 50 ML IVPB SCH (22:15)
[2019-06-14] MEDS ORDERED: VANCOMYCIN 1 GM in D5W (PRE-DOCKED) 1,000 MG/250 ML IVPB SCH (22:16)
[2019-06-14] MEDS ORDERED: PIPERACILLIN/TAZOBACTAM 2.25 GM VIAL IVPB ONE (22:24)
[2019-06-14] MEDS ORDERED: DEXTROSE 5%-WATER - 50 ML IVPB ONE (22:24)
[2019-06-14] MEDS ORDERED: PT OWN MED DRAWER 7, Y5N ONE (22:24)
[2019-06-14] MEDS: HEPARIN NA (PORCINE) 5,000 UNITS/ML 1ML VIAL SQ SCH (22:28)
[2019-06-14] MEDS: PIPERACILLIN/TAZOB 2.25 GM 2.25 GM in DEXTROSE 5%-WATER - 50 ML IVPB SCH (22:29)
[2019-06-14] MEDS ORDERED: VANCOMYCIN 1 GRAM (PRE-DOCKED) 1,000 MG/250 ML BAG IVPB ONE (22:30)
[2019-06-14] MEDS ORDERED: ACETAMINOPHEN 325 MG TABLET (FP) PO PRN (22:35)
[2019-06-14] MEDS ORDERED: EMTRICITABINE 200 MG CAPSULE PO SCH (23:00)
[2019-06-14] MEDS ORDERED: TENOFOVIR DISOPROXIL FUMARATE 300 MG TABLET PO SCH (23:00)
[2019-06-14 23:25] VITALS: BMI 21.8
[2019-06-14] MEDS ORDERED: PNEUMOC 13-VAL CONJ-DIP CRM/PF 0.5 ML DISP.SYRIN IM ONE (23:45)
[2019-06-15] MEDS ORDERED: ACETAMINOPHEN 325 MG TABLET (FP) PO PRN (01:18)
[2019-06-15 06:16] LABS: BASO % 0.2 % (0-2.0); EOS % 0.1 % (0-4.5); HEMATOCRIT 32.5 % (35.4-49); HEMOGLOBIN 11.4 GM/dL (11.7-16.9); LYMPH % 9.2 % (8-40); MCHC 35.2 g/dl (32.0-35.9); MEAN CELL VOLUME 93.7 fl (80-96); MEAN PLT VOLUME 7.6 fl (7.5-11.1); MONO % 7.6 % (3.8-10.2); NEUT % 82.9 % (42.8-82.8); PLATELET COUNT 141 K/MM3 (134-434); RBC 3.47 M/mm3 (4.00-5.60); RDW 15.4 % (11.9-15.9); WHITE BLOOD COUNT 9.4 K/mm3 (4.0-10.0)
[2019-06-15] MEDS: HEPARIN NA (PORCINE) 5,000 UNITS/ML 1ML VIAL SQ SCH ×3 (06:27→22:38)
[2019-06-15] MEDS: INSULIN SLIDING SCALE (NOVOLOG) 1 VIAL SQ SCH ×3 (06:32→16:45)
[2019-06-15 07:05] LABS: ALBUMIN 3.1 g/dl (3.4-5.0); BILIRUBIN,TOTAL 0.8 mg/dL (0.2-1); BLOOD UREA NITROGEN 44.2 mg/dL (7-18); CALCIUM 8.7 mg/dL (8.5-10.1); MAGNESIUM 2.3 mg/dL (1.8-2.4); POTASSIUM 4.5 mmol/L (3.5-5.1); TOT PROT 6.7 g/dl (6.4-8.2)
[2019-06-15 07:19] LABS: CREATININE 10.6 mg/dL (0.55-1.3)
[2019-06-15] MEDS ORDERED: DEXTROSE 5%-WATER - 50 ML IVPB ONE (08:44)
[2019-06-15] MEDS ORDERED: PIPERACILLIN/TAZOBACTAM 2.25 GM VIAL IVPB ONE (08:44)
--- NOTE | 2019-06-15 09:29 | EKG ---
Test Reason : Blood Pressure : / mmHG Vent. Rate : 107 BPM Atrial Rate : 107 BPM P-R Int : 136 ms QRS Dur : 088 ms QT Int : 348 ms P-R-T Axes : 066 095 026 degrees QTc Int : 464 ms SINUS TACHYCARDIA POSSIBLE LEFT ATRIAL ENLARGEMENT RIGHTWARD AXIS LEFT VENTRICULAR HYPERTROPHY T WAVE ABNORMALITY, CONSIDER INFERIOR ISCHEMIA ABNORMAL ECG WHEN COMPARED WITH ECG OF 17-JUL-2018 19:00, NO SIGNIFICANT CHANGE WAS FOUND Confirmed by GABO MANLEY, JOSH ([id number]) on 06/15/2019 9:29:47 AM Referred By: Confirmed By:JOSH AYON MD
[2019-06-15] MEDS: CALCIUM ACETATE 667 MG CAPSULE (FP) PO SCH ×3 (09:43→16:42)
[2019-06-15] MEDS: PIPERACILLIN/TAZOB 2.25 GM 2.25 GM in DEXTROSE 5%-WATER - 50 ML IVPB SCH (09:43)
[2019-06-15] MEDS ORDERED: lamiVUDine 150 MG TABLET PO SCH (10:00)
[2019-06-15] MEDS ORDERED: amLODIPine BESYLATE 10 MG TABLET (FP) PO SCH (10:00)
[2019-06-15] MEDS ORDERED: RILPIVIRINE HCL 25 MG TABLET PO SCH (10:00)
[2019-06-15] MEDS ORDERED: ABACAVIR SULFATE 300 MG TABLET PO SCH (10:00)
[2019-06-15] MEDS ORDERED: ONDANSETRON 4 MG/2 ML VIAL IVPUSH PRN (11:19)
--- NOTE | 2019-06-15 11:29 | PN ---
Progress Note (short form) - Note Progress Note: ID CONSULT DICTATED STREPTOCOCCAL BACTEREMIA / SEPSIS SECONDARY TO SKIN FOCUS ESRD HIV+ ASYMPTOMATIC PER PT HX MRSA AWAIT C/S CEFTRIAXONE 2GM DAILY VANCOMYCIN LEVEL THERAPUTIC REPEAT BC AM ECHO HIV MEDS CD4
[2019-06-15] MEDS ORDERED: DEXTROSE 5%-WATER 100 ML IVPB ONE (11:47)
[2019-06-15] MEDS: CEFTRIAXONE 2 GM in DEXTROSE 5%-WATER 100 ML IVPB SCH (11:53)
--- NOTE | 2019-06-15 13:01 | CONS ---
DATE OF CONSULTATION: The patient is a 48-year-old male, history of end-stage renal disease, on hemodialysis, history of HIV infection, evaluated for sepsis. He was admitted to the hospital on June 14, 2019, with a 1-day history of fever, dry cough, and right groin pain. He reports that he experienced some chills while on hemodialysis. He presented to the emergency room, where cultures were obtained. Blood cultures are now positive, 3 out of 4 bottles, gram-positive cocci in chains. He was empirically treated with vancomycin and Zosyn. He is awake and alert. At the present time he is noted to have shaking chills. He complains of right groin pain as well as dry cough. Denies any chest pain, shortness of breath, sputum production, or hemoptysis. He states he is anuric. The patient has had a history of soft tissue infections in the past, including history of MRSA infection. He is also status post amputation of toes on the right foot. The patient's is a diabetic and has been on hemodialysis via an AV fistula which has been present for approximately 2 years. He reports the fistula has been functioning well without evidence of infection. He also has a history of HIV infection dating back to 2012. [place] is followed in the city. He reports being adherent to antiretroviral therapy. He is unaware of his most recent viral markers; however, he reports that his viral load is undetectable and T cells have been in a good range. He denies history of opportunistic infections. Past medical history positive for end-stage renal disease, on hemodialysis, hypertension, diabetes, HIV. PAST SURGICAL HISTORY: Status post AV fistula. No known allergies. MEDICATIONS AT HOME: Abacavir, Epivir, Edurant, insulin, Norvasc. SOCIAL HISTORY: Patient lives at home in the community. 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 Nonsmoker, nondrinker. SYSTEMS REVIEW: Neurologic: No loss of consciousness, seizure activity, or focal weakness. Cardiac: Negative chest pain or palpitations. Respiratory: As per HPI. Gastrointestinal: Negative vomiting or diarrhea. Genitourinary: End-stage renal disease, on hemodialysis. LABORATORY DATA: White count 9.4, hematocrit 32.5, platelets 141, creatinine 10.6, vancomycin trough 22.2. Previous wound cultures have been positive for MRSA and group B streptococcus. PHYSICAL EXAMINATION: General: He is awake and responsive. He is noted to have chills Vital Signs: Temperature 98.6. Blood pressure 114/64. Pulse 86, regular. Respirations 20 per minute. T-max 103.1. Eyes: Sclerae anicteric. Heart Sounds: S1, S2. No murmur. Lungs: Clear. No rhonchi, rales, or wheezing. Abdomen: Soft and nontender. There is a tender subcutaneous nodular swelling in the right groin below the inguinal ligament. It is tender to palpation. There is no overlying erythema. There is no drainage. Extremities: Negative for edema. AV fistula present in the left upper extremity; no erythema or tenderness. IMPRESSION: 1. Streptococcal bacteremia, skin versus lung source versus access-related infection. 2. End-stage renal disease, on hemodialysis. 3. Human immunodeficiency virus positive. Asymptomatic per patient. 4. History of methicillin-resistant Staphylococcus aureus. Await identification of blood isolate. Will repeat blood cultures in the a.m., obtain echocardiogram. Vancomycin level therapeutic. Will give ceftriaxone 2 g IV piggyback daily, pending culture results. Obtain CD4 lymphocyte count. Continue antiretroviral therapy. Need to confirm his present regimen, as patient gives a somewhat questionable report of his present antiretroviral regimen. Thank you for the kind referral. CLINTON SEPULVEDA M.D. [id number]
--- NOTE | 2019-06-15 15:33 | PN ---
Progress Note (short form) - Note Progress Note: SUBJECTIVE: complains of Right groin discomfort. No cough/sputum/hemoptysis. No abdominal pain/nausea/vomiting/diarrhea. OBJECTIVE: Febrile - Tmax 103.1, Hemodynamically Stable Last Vital Signs Temp Pulse Resp BP Pulse Ox 99.8 F H 113 H 18 125/64 100 06/15/19 15:26 06/15/19 15:26 06/15/19 15:26 06/15/19 15:26 06/15/19 09:00 HEENT - Atraumatic, Normocephalic Heart - S1, S2, RRR Lungs - clear to auscultation. Abdomen - Soft, non-tender. Bowel Sounds normal. R inguinal tenderness Extremities - no edema, no calf tenderness. s/p R 1/2 toe amputation Laboratory Results - last 24 hr 06/14/19 06/14/19 06/15/19 18:20 18:20 05:40 WBC 9.6 RBC 3.73 L Hgb 12.1 Hct 35.9 MCV 96.0 MCH 32.5 MCHC 33.8 RDW 15.5 Plt Count 150 D MPV 7.3 L Absolute Neuts (auto) 8.3 H Neutrophils % 86.2 H D Lymphocytes % 7.4 L D Monocytes % 6.1 Eosinophils % 0.1 D Basophils % 0.2 Nucleated RBC % 0 Sodium 136 Potassium 4.9 Chloride 97 L Carbon Dioxide 28 Anion Gap 11 BUN 33.8 H Creatinine 8.6 H* Est GFR (CKD-EPI)AfAm 7.67 Est GFR (CKD-EPI)NonAf 6.62 POC Glucometer Random Glucose 244 H Calcium 9.0 Phosphorus Magnesium Total Bilirubin 0.9 AST 20 ALT 23 Alkaline Phosphatase 88 Total Protein 7.6 Albumin 3.6 Random Vancomycin 22.2 06/15/19 06/15/19 06/15/19 05:40 05:40 06:30 WBC 9.4 RBC 3.47 L Hgb 11.4 L Hct 32.5 L MCV 93.7 MCH 33.0 MCHC 35.2 RDW 15.4 Plt Count 141 MPV 7.6 Absolute Neuts (auto) 7.8 Neutrophils % 82.9 H Lymphocytes % 9.2 D Monocytes % 7.6 Eosinophils % 0.1 Basophils % 0.2 Nucleated RBC % 0 Sodium 135 L Potassium 4.5 Chloride 97 L Carbon Dioxide 28 Anion Gap 10 BUN 44.2 H Creatinine 10.6 H* Est GFR (CKD-EPI)AfAm 5.96 Est GFR (CKD-EPI)NonAf 5.14 POC Glucometer 306 Random Glucose 319 H Calcium 8.7 Phosphorus 5.0 H Magnesium 2.3 Total Bilirubin 0.8 AST 19 ALT 23 Alkaline Phosphatase 81 Total Protein 6.7 Albumin 3.1 L Random Vancomycin 06/15/19 11:10 WBC RBC Hgb Hct MCV MCH MCHC RDW Plt Count MPV Absolute Neuts (auto) Neutrophils % Lymphocytes % Monocytes % Eosinophils % Basophils % Nucleated RBC % Sodium Potassium Chloride Carbon Dioxide Anion Gap BUN Creatinine Est GFR (CKD-EPI)AfAm Est GFR (CKD-EPI)NonAf POC Glucometer 91 Random Glucose Calcium Phosphorus Magnesium Total Bilirubin AST ALT Alkaline Phosphatase Total Protein Albumin Random Vancomycin Current Medications Generic Name Dose Route Start Last Admin Trade Name Freq PRN Reason Stop Dose Admin Acetaminophen 650 mg 06/15/19 01:18 Tylenol - PO Q4H PRN FEVER Amlodipine Besylate 10 mg 06/15/19 10:00 06/15/19 09:18 Norvasc - PO Not Given DAILY [facility] Calcium Acetate 1,334 mg 06/15/19 08:00 06/15/19 11:53 Phoslo - PO Not Given TIDCM [facility] Heparin Sodium (Porcine) 5,000 unit 06/14/19 22:00 06/15/19 13:51 Heparin - SQ Not Given TID [facility] Ceftriaxone Sodium 2 gm/ 100 mls @ 200 mls/hr 06/15/19 11:45 06/15/19 11:53 Dextrose IVPB 200 mls/hr DAILY [facility] Administration Protocol Insulin Aspart 1 vial 06/15/19 07:00 06/15/19 11:11 Novolog Vial Sliding Scale - SQ Not Given TIDAC [facility] Protocol Insulin Detemir 25 units 06/15/19 22:00 Levemir Vial SQ HS [facility] Ondansetron HCl 4 mg 06/15/19 11:19 Zofran Injection IVPUSH Q8H PRN NAUSEA Home Medications Medication Instructions Recorded Abacavir Sulfate [Abacavir] 300 mg PO DAILY 06/30/14 Lamivudine [Epivir] 150 mg PO DAILY 06/30/14 Calcium Acetate [Phoslo -] 1,334 mg PO TIDCM #90 capsule 07/16/14 Insulin Glargine,Hum.rec.anlog 25 units SQ HS 07/30/14 [Lantus (10mL VIAL) -] Pen Needle, Diabetic [Novofine] 5 each MC DAILY 09/29/16 Amlodipine Besylate [Norvasc -] 10 mg PO DAILY #30 tablet 07/17/18 Emtricitabine [Emtriva -] 1 tab PO Q96H 07/17/18 Insulin Aspart [Novolog] See Protocol SQ AC #10 cartridge 07/17/18 Rilpivirine HCl [Edurant] 1 tab PO DAILY 07/17/18 Sildenafil Citrate [Viagra] 100 mg PO DAILY PRN 07/17/18 Tenofovir Disoproxil Fumarate 1 tab PO WEEKLY 07/17/18 [Viread -] ASSESSMENT/PLAN: 48 year old male with history of HIV (on HAART), ESRD (HD TTS via LUE AVF), DM 2 , HTN, presents with R groin pain and fever/chills for two days. Scrotal US - small bilateral hydroceles, mildly enlarged LNs on R 1. Sepsis secondary to Gram positive Bacteremia, source unclear ?AVF access Scrotal US small bilateral hydroceles with small lymphadenopathy on Right. CT A/P shows no intra-abdominal source. No lymphadenoapthy seen. Continue Zosyn, Vancomycin ID following. 2. HIV on HAART ID consulted. 3. ESRD on HD via LUE AVF TTS Nephrology consulted. 4. HTN - Continue Norvasc 5. DM 2 - Continue Levemir/Novolog sliding scale. DVT Px - Heparin SQ Visit type - Emergency Visit Emergency Visit: Yes ED Registration Date: 06/14/19 Care time: The patient presented to the Emergency Department on the above date and was hospitalized for further evaluation of their emergent condition. - New Patient This patient is new to me today: Yes Date on this admission: 06/15/19 - Critical Care Critical Care patient: No - Discharge Referral Referred to [facility] Med P.C.: No
--- NOTE | 2019-06-15 17:19 | CONSULT ---
Consult Consult Specialty:: Nephrology Reason for Consultation:: ESRD - History of Present Illness Chief Complaint: sent in for generalized malaise History of Present Illness: Coverage for Dr Pearce Pt is a 48 year old male with pmhx of ESRD, HIV, DM, and HTN who presents with generalized malaise and lower ext discomfort. I was called from HD yesterday and told that pt does not feel well. I recommended he come to the hospital for evaluation. He was found to have sepsis and is admitted. He denies shortness of breath or lower ext edema. He does complain of fever and chills. - History Source History Provided By: Patient, Medical Record - Past Medical History Cardio/Vascular: Yes: HTN Renal/: Yes: Renal Failure, Hemodialysis Infectious Disease: Yes: HIV Endocrine: Yes: Diabetes Mellitus - Alcohol/Substance Use Hx Alcohol Use: No - Smoking History Smoking history: Never smoked Have you smoked in the past 12 months: No Aproximately how many cigarettes per day: 0 - Social History Usual Living Arrangement: With Parent ADL: Independent History of Recent Travel: No Home Medications - Allergies Allergies/Adverse Reactions: Allergies Allergy/AdvReac Type Severity Reaction Status Date / Time No Known Drug Allergies Allergy Verified 06/14/19 17:43 - Home Medications Home Medications: Ambulatory Orders Abacavir Sulfate [Abacavir] 300 mg PO DAILY 06/30/14 Lamivudine [Epivir] 150 mg PO DAILY 06/30/14 Calcium Acetate [Phoslo -] 1,334 mg PO TIDCM #90 capsule 07/16/14 Insulin Glargine,Hum.rec.anlog [Lantus (10mL VIAL) -] 25 units SQ HS 07/30/14 Pen Needle, Diabetic [Novofine] 5 each MC DAILY 09/29/16 Amlodipine Besylate [Norvasc -] 10 mg PO DAILY #30 tablet 07/17/18 Emtricitabine [Emtriva -] 1 tab PO Q96H 07/17/18 Insulin Aspart [Novolog] See Protocol SQ AC #10 cartridge 07/17/18 Rilpivirine HCl [Edurant] 1 tab PO DAILY 07/17/18 Sildenafil Citrate [Viagra] 100 mg PO DAILY PRN 07/17/18 Tenofovir Disoproxil Fumarate [Viread -] 1 tab PO WEEKLY 07/17/18 Family Medical History Family History: Denies Review of Systems - Review of Systems Constitutional: reports: Chills, Fever, Malaise Eyes: reports: No Symptoms HENT: reports: No Symptoms Neck: reports: No Symptoms Cardiovascular: reports: No Symptoms Respiratory: reports: No Symptoms Gastrointestinal: reports: No Symptoms Genitourinary: reports: Other (right groin pain) Musculoskeletal: reports: No Symptoms Neurological: reports: No Symptoms Endocrine: reports: No Symptoms Hematology/Lymphatic: reports: No Symptoms Psychiatric: reports: No Symptoms Physical Exam Vital Signs: Vital Signs Temperature 99.8 F H 06/15/19 15:26 Pulse Rate 113 H 06/15/19 15:26 Respiratory Rate 18 06/15/19 15:26 Blood Pressure 125/64 06/15/19 15:26 O2 Sat by Pulse Oximetry (%) 100 06/15/19 09:00 Constitutional: Yes: Calm Eyes: Yes: Conjunctiva Clear HENT: Yes: Atraumatic Neck: Yes: Supple Cardiovascular: Yes: S1, S2 Respiratory: Yes: CTA Bilaterally Gastrointestinal: Yes: Soft Renal/: Yes: WNL Musculoskeletal: Yes: WNL Edema: No Neurological: Yes: Oriented Psychiatric: Yes: Oriented Labs: CBC, BMP 06/15/19 05:40 06/15/19 05:40 Microbiology 06/14/19 19:20 Blood - Peripheral Venous Blood Culture - Preliminary Pending Organism 06/14/19 19:15 Blood - Peripheral Venous Blood Culture - Preliminary Pending Organism Imaging - Results Chest X-ray: Report Reviewed Problem List - Problems (1) Fever and chills Code(s): R50.9 - FEVER, UNSPECIFIED (2) HIV disease Code(s): B20 - HUMAN IMMUNODEFICIENCY VIRUS [HIV] DISEASE (3) Right groin pain Code(s): R10.31 - RIGHT LOWER QUADRANT PAIN (4) ESRD (end stage renal disease) on dialysis Code(s): N18.6 - END STAGE RENAL DISEASE; Z99.2 - DEPENDENCE ON RENAL DIALYSIS Assessment/Plan Current Medications Generic Name Dose Route Start Last Admin Trade Name Freq PRN Reason Stop Dose Admin Acetaminophen 650 mg 06/15/19 01:18 06/15/19 16:43 Tylenol - PO 650 mg Q4H PRN Administration FEVER Amlodipine Besylate 10 mg 06/15/19 10:00 06/15/19 09:18 Norvasc - PO Not Given DAILY [facility] Calcium Acetate 1,334 mg 06/15/19 08:00 06/15/19 16:42 Phoslo - PO 1,334 mg TIDCM [facility] Administration Heparin Sodium (Porcine) 5,000 unit 06/14/19 22:00 06/15/19 13:51 Heparin - SQ Not Given TID [facility] Ceftriaxone Sodium 2 gm/ 100 mls @ 200 mls/hr 06/15/19 11:45 06/15/19 11:53 Dextrose IVPB 200 mls/hr DAILY [facility] Administration Protocol Insulin Aspart 1 vial 06/15/19 07:00 06/15/19 16:45 Novolog Vial Sliding Scale - SQ 4 units TIDAC [facility] Administration Protocol Insulin Detemir 25 units 06/15/19 22:00 Levemir Vial SQ HS [facility] Ondansetron HCl 4 mg 06/15/19 11:19 Zofran Injection IVPUSH Q8H PRN NAUSEA Impression 1. esrd 2. sepsis 3. bactermia 4. hiv 5. dm 6. htn Plan - pt last had HD yesterday - next HD on Sunday - follow cultures - ID eval - cont abx - bp is improved - hold amlodipine
[2019-06-15] MEDS: INSULIN (LEVEMIR) 100 UNITS/ML UNITS SQ SCH ×2 (22:41→22:46)
[2019-06-16] MEDS: HEPARIN NA (PORCINE) 5,000 UNITS/ML 1ML VIAL SQ SCH ×3 (06:24→21:15)
[2019-06-16] MEDS: INSULIN SLIDING SCALE (NOVOLOG) 1 VIAL SQ SCH ×3 (06:25→16:34)
[2019-06-16] MEDS ORDERED: INSULIN (NOVOLOG) ASPART 100 UNITS/ML 10ML VIAL ONE ×2 (06:28→12:16)
[2019-06-16] MEDS ORDERED: INSULIN (LEVEMIR) 100 UNITS/ML UNITS SQ ONE (06:28)
[2019-06-16 07:59] LABS: BASO % 0.5 % (0-2.0); EOS % 1.8 % (0-4.5); HEMOGLOBIN 11.8 GM/dL (11.7-16.9); MCH 32.2 pg (25.7-33.7); MCHC 33.7 g/dl (32.0-35.9); MEAN CELL VOLUME 95.7 fl (80-96); MEAN PLT VOLUME 8.1 fl (7.5-11.1); MONO % 6.1 % (3.8-10.2); NEUT % 78.6 % (42.8-82.8); PLATELET COUNT 169 K/MM3 (134-434); RBC 3.65 M/mm3 (4.00-5.60); RDW 15.6 % (11.9-15.9); WHITE BLOOD COUNT 9.2 K/mm3 (4.0-10.0)
[2019-06-16 08:27] LABS: BLOOD UREA NITROGEN 63.4 mg/dL (7-18); CALCIUM 9.4 mg/dL (8.5-10.1); MAGNESIUM 2.7 mg/dL (1.8-2.4); POTASSIUM 4.7 mmol/L (3.5-5.1)
[2019-06-16 08:35] LABS: CREATININE 13.3 mg/dL (0.55-1.3)
[2019-06-16] MEDS ORDERED: DEXTROSE 5%-WATER 100 ML IVPB ONE (09:33)
[2019-06-16] MEDS: CEFTRIAXONE 2 GM in DEXTROSE 5%-WATER 100 ML IVPB SCH (10:00)
[2019-06-16] MEDS: CALCIUM ACETATE 667 MG CAPSULE (FP) PO SCH ×3 (10:00→16:33)
--- NOTE | 2019-06-16 12:36 | CONSULT ---
Consult - text type - Consultation Consultation Note: PODIATRY; full consult to be done tomorrow Spoke with nurse; has discovered draining wound on the third digit MRI is ordered and will be followed WBC wnl and afebrile today Will await MRI and if needed possibily tomorrow or sunday AM can take down for drainage vs amputations if needed Will closely follow.
--- NOTE | 2019-06-16 13:20 | PN ---
Progress Note (short form) - Note Progress Note: Renal follow up for ESRD on HD Seen and examined at the bedside no acute complaints denies any fever, chills, sob, cp, abd pain had bloody drainage from foot overnight last dialysis was Sunday Vital Signs Temperature 98.6 F 06/16/19 10:00 Pulse Rate 108 H 06/16/19 10:00 Respiratory Rate 18 06/16/19 10:00 Blood Pressure 110/68 06/16/19 10:00 O2 Sat by Pulse Oximetry (%) 100 06/15/19 21:00 Intake & Output 06/13/19 06/14/19 06/15/19 06/16/19 23:59 23:59 23:59 23:59 Intake Total 550 630 200 Output Total 500 200 Balance 50 430 200 Weight 68.946 kg 68.81 kg 67.273 kg NAD awake and alert RRR CTA no LE edema CBC, BMP 06/16/19 06:18 06/16/19 06:18 Current Medications Acetaminophen (Tylenol -) 650 mg PO Q4H PRN PRN Reason: FEVER Last Admin: 06/15/19 16:43 Dose: 650 mg Amlodipine Besylate (Norvasc -) 10 mg PO DAILY [facility] Last Admin: 06/15/19 09:18 Dose: Not Given Calcium Acetate (Phoslo -) 1,334 mg PO TIDCM [facility] Last Admin: 06/16/19 12:13 Dose: 1,334 mg Heparin Sodium (Porcine) (Heparin -) 5,000 unit SQ TID [facility]ATH[facility] Last Admin: 06/16/19 06:24 Dose: Not Given Ceftriaxone Sodium 2 gm/ (Dextrose) 100 mls @ 200 mls/hr IVPB DAILY [facility]ATH[facility]; Protocol Last Admin: 06/16/19 10:00 Dose: 200 mls/hr Insulin Aspart (Novolog Vial Sliding Scale -) 1 vial SQ TIDAC [facility]ATH[facility]; Protocol Last Admin: 06/16/19 12:17 Dose: 10 units Insulin Detemir (Levemir Vial) 25 units SQ HS [facility] Last Admin: 06/15/19 22:46 Dose: Not Given Ondansetron HCl (Zofran Injection) 4 mg IVPUSH Q8H PRN PRN Reason: NAUSEA 48 year old male with pmhx of ESRD, HIV, DM, and HTN who presents with generalized malaise and lower ext discomfort. 1. Gram positive bacteremia 2. Sepsis 3. ESRD on HD 4. DM type 2 5. Hypertension no acute need for dialysis today continue Vancomycin dosed by levels for treatment of gram positive bacteremia next dialysis planned for tomorrow Lower extremity MRI ordered Krzysztof Pearce DO
--- NOTE | 2019-06-16 13:46 | ECHO ---
Name: CUBA CIFUENTES Exam:Adult Echocardiogram Study Date: 06/16/2019 11:08 AM Age: 48 yrs Reason For Study: strep bacteremia Height: 70 in Weight: 151 lb BSA: 1.9 m2 MMode/2D Measurements & Calculations IVSd: 1.1 cm Ao root diam: 2.7 cm LVIDd: 5.0 cm LA dimension: 3.8 cm LVIDs: 3.3 cm LVPWd: 1.1 cm LVPWs: 1.6 cm EDV(Teich): 117.1 ml ESV(Teich): 44.2 ml LVOT diam: 1.9 cm RV S Jelani: 13.0 cm/sec Doppler Measurements & Calculations MV E max jelani: 73.1 cm/sec Ao V2 max: 128.5 cm/sec MV A max jelani: 85.9 cm/sec Ao max P.6 mmHg MV E/A: 0.85 MV dec time: 0.14 sec SHAGGY(V,D): 2.1 cm2 LV V1 max P.2 mmHg TR max jelani: 224.0 cm/sec LV V1 max: 89.3 cm/sec TR max P.1 mmHg PA V2 max: 103.7 cm/sec Med Peak E' Jelani: 5.3 cm/sec PA max P.3 mmHg Med E/e': 13.9 Lat Peak E' Jelani: 5.9 cm/sec Lat E/e': 12.3 Procedure A complete two-dimensional transthoracic echocardiogram was performed (2D, M-mode, Doppler and color flow Doppler). Left Ventricle The left ventricle is normal in size. Left ventricular systolic function is normal. Ejection Fraction = 60- 65%. Grade I diastolic dysfunction, (abnormal relaxation pattern). Ratio E/E'= 13. No regional wall m otion abnormalities noted. Right Ventricle The right ventricle is normal size. The right ventricular systolic function is normal. RV systolic TD I is 13 cm/s. Atria The left atrial size is normal. Right atrial size is normal. Mitral Valve The mitral valve is normal in structure and function. There is mild mitral regurgitation. Tricuspid Valve The tricuspid valve is normal in structure and function. There is mild tricuspid regurgitation. Pulmo nary artery systolic pressure is at least 23 mmHg as RA pressure is assumed 3 mmHg. Aortic Valve The aortic valve is normal in structure and function. Trace to mild aortic regurgitation. Pulmonic Valve The pulmonic valve is not well visualized. Great Vessels The aortic root is normal size. Pericardium/Pleura There is no pericardial effusion. Interpretation Summary The left ventricle is normal in size. Left ventricular systolic function is normal. No regional wall motion abnormalities noted. Ejection Fraction = 60-65%. Grade I diastolic dysfunction, (abnormal relaxation pattern). Ratio E/E'= 13 The right ventricular systolic function is normal. The left atrial size is normal. Right atrial size is normal. There is mild mitral regurgitation. There is mild tricuspid regurgitation. Pulmonary artery systolic pressure is at least 23 mmHg as RA pressure is assumed 3 mmHg Trace to mild aortic regurgitation. There is no pericardial effusion. Anjel Del Valle MD 06/16/2019 01:45 PM
[2019-06-16] MEDS ORDERED: SODIUM CHLORIDE 250 ML IV PRN (14:02)
--- NOTE | 2019-06-16 14:27 | PN ---
Teaching Attending Note Name of Resident: Patty Melendez ATTENDING PHYSICIAN STATEMENT I saw and evaluated the patient. I reviewed the resident's note and discussed the case with the resident. I agree with the resident's findings and plan as documented. SUBJECTIVE: complains of Right 3 rd toe ulcer with bloodypurulent discharge. Non -tender. Ongoing groin discomfort. No cough/sputum/hemoptysis. No abdominal pain /nausea/vomiting/diarrhea. OBJECTIVE: Still febrile - Tmax 101.3, Hemodynamically Stable Last Vital Signs Temp Pulse Resp BP Pulse Ox 98.3 F 86 20 117/71 100 06/16/19 13:53 06/16/19 13:53 06/16/19 13:53 06/16/19 13:53 06/15/19 21:00 Heart - S1, S2, RRR Lungs - clear to auscultation. Abdomen - Soft, non-tender. Bowel Sounds normal. R inguinal tenderness Extremities - no edema, no calf tenderness. s/p R 1/2 toe amputation. R 3rd toe ulcer with bloodypurulent malodrous discharge without surrounding cellulitis/ tenderness. LUE AVF. Laboratory Results - last 24 hr 06/15/19 06/15/19 06/16/19 16:44 22:41 06:05 WBC RBC Hgb Hct MCV MCH MCHC RDW Plt Count MPV Absolute Neuts (auto) Neutrophils % Lymphocytes % Monocytes % Eosinophils % Basophils % Nucleated RBC % Sodium Potassium Chloride Carbon Dioxide Anion Gap BUN Creatinine Est GFR (CKD-EPI)AfAm Est GFR (CKD-EPI)NonAf POC Glucometer 227 109 113 Random Glucose Hemoglobin A1c % Calcium Magnesium Random Vancomycin 06/16/19 06/16/19 06/16/19 06:18 06:18 06:18 WBC 9.2 RBC 3.65 L Hgb 11.8 Hct 35.0 L MCV 95.7 MCH 32.2 MCHC 33.7 RDW 15.6 Plt Count 169 MPV 8.1 Absolute Neuts (auto) 7.3 Neutrophils % 78.6 Lymphocytes % 13.0 D Monocytes % 6.1 Eosinophils % 1.8 D Basophils % 0.5 Nucleated RBC % 0 Sodium 137 Potassium 4.7 Chloride 97 L Carbon Dioxide 27 Anion Gap 14 BUN 63.4 H Creatinine 13.3 H* Est GFR (CKD-EPI)AfAm 4.53 Est GFR (CKD-EPI)NonAf 3.91 POC Glucometer Random Glucose 103 Hemoglobin A1c % Calcium 9.4 Magnesium 2.7 H Random Vancomycin 16.0 L 06/16/19 06/16/19 06:18 12:11 WBC RBC Hgb Hct MCV MCH MCHC RDW Plt Count MPV Absolute Neuts (auto) Neutrophils % Lymphocytes % Monocytes % Eosinophils % Basophils % Nucleated RBC % Sodium Potassium Chloride Carbon Dioxide Anion Gap BUN Creatinine Est GFR (CKD-EPI)AfAm Est GFR (CKD-EPI)NonAf POC Glucometer 416 Random Glucose Hemoglobin A1c % 7.2 H Calcium Magnesium Random Vancomycin Current Medications Generic Name Dose Route Start Last Admin Trade Name Freq PRN Reason Stop Dose Admin Acetaminophen 650 mg 06/15/19 01:18 06/15/19 16:43 Tylenol - PO 650 mg Q4H PRN Administration FEVER Amlodipine Besylate 10 mg 06/15/19 10:00 06/15/19 09:18 Norvasc - PO Not Given DAILY [facility] Calcium Acetate 1,334 mg 06/15/19 08:00 06/16/19 12:13 Phoslo - PO 1,334 mg TIDCM [facility] Administration Heparin Sodium (Porcine) 5,000 unit 06/14/19 22:00 06/16/19 14:06 Heparin - SQ Not Given TID [facility] Ceftriaxone Sodium 2 gm/ 100 mls @ 200 mls/hr 06/15/19 11:45 06/16/19 10:00 Dextrose IVPB 200 mls/hr DAILY [facility] Administration Protocol Sodium Chloride 250 mls @ 3,000 mls/hr 06/16/19 14:02 Normal Saline - IV 06/17/19 14:02 PRN PRN Hypotension during Dialysis Insulin Aspart 1 vial 06/15/19 07:00 06/16/19 12:17 Novolog Vial Sliding Scale - SQ 10 units TIDAC [facility] Administration Protocol Insulin Detemir 25 units 06/15/19 22:00 06/15/19 22:46 Levemir Vial SQ Not Given [facility] Ondansetron HCl 4 mg 06/15/19 11:19 Zofran Injection IVPUSH Q8H PRN NAUSEA Home Medications Medication Instructions Recorded Calcium Acetate [Phoslo -] 1,334 mg PO TIDCM #90 capsule 07/16/14 Insulin Glargine,Hum.rec.anlog 25 units SQ HS 07/30/14 [Lantus (10mL VIAL) -] Emtricitabine [Emtriva -] 200 mg PO Q96H 07/17/18 Rilpivirine HCl [Edurant] 25 mg PO DAILY 07/17/18 Tenofovir Disoproxil Fumarate 300 mg PO WEEKLY 07/17/18 [Viread -] Amlodipine Besylate 5 mg PO 06/16/19 Sevelamer HCl 800 mg PO TID 06/16/19 ASSESSMENT/PLAN: 48 year old male with history of HIV (on HAART), ESRD (HD TTS via LUE AVF), DM 2 , HTN, presents with R groin pain and fever/chills for two days. Scrotal US - small bilateral hydroceles, mildly enlarged LNs on R 1. Sepsis secondary to Gram positive Bacteremia, source unclear ?R 3rd toe infected ulcer ?AVF access Scrotal US small bilateral hydroceles with mild lymphadenopathy on Right. CT A/P shows no intra-abdominal source. No lymphadenoapthy seen. MRI R foot to exclude abscess/osteomyelitis. Continue Zosyn, Vancomycin ID following. Podiatry and Wound care consulted. 2. HIV on HAART ID consulted. 3. ESRD on HD via LUE AVF TTS Nephrology consulted - Stable. For scheduled HD Sunday 4. HTN - Norvasc held due to borderline BP in setting of sepsis. 5. DM 2 - Hyperglycemic. Uncontrolled, A1c 7.2. Continue Levemir/Novolog sliding scale. DVT Px - Heparin SQ
--- NOTE | 2019-06-16 14:44 | PN ---
Physical Exam: SUBJECTIVE: Patient seen and examined. Pt reports that he had serosanguinous drainage from his R toe overnight. Complains of decreased appetite. No fevers or chills. OBJECTIVE: Vital Signs Period Temp Pulse Resp BP Sys/Lopez Pulse Ox Last 24 Hr 98.2 F-101.3 F 92-113 16-18 101-125/54-68 100 GENERAL: Awake, alert, and fully oriented, in no acute distress. HEAD: Normal with no signs of trauma. EYES: Pupils equal, round and reactive to light, extraocular movements intact, sclera anicteric, conjunctiva clear. No lid lag. EARS, NOSE, THROAT: Ears normal, nares patent, oropharynx clear without exudates. Moist mucous membranes. NECK: Normal range of motion, supple without lymphadenopathy, JVD, or masses. LUNGS: Breath sounds equal, clear to auscultation bilaterally. No wheezes, and no crackles. No accessory muscle use. HEART: Regular rate and rhythm, normal S1 and S2 without murmur, rub or gallop. ABDOMEN: Soft, nontender, not distended, normoactive bowel sounds, no guarding, no rebound, no masses. No hepatomegaly or splenomegaly. GENITOURINARY: Several palpable, tender lymph nodes on R, no testicular swelling or tenderness MUSCULOSKELETAL: Normal range of motion at all joints. No bony deformities or tenderness. No CVA tenderness. EXTREMITIES: 2+ pulses, warm, well-perfused, no edema. S/p R 1st & 2nd toe amputation. R 3rd toe ulcer w/bloody, malodorous discharge. No surrounding cellulitis/tenderness. LUE AVF, no tenderness on palpation, regular bruit on auscultation NEUROLOGICAL: Cranial nerves II-XII intact. Normal speech. Normal gait. PSYCHIATRIC: Cooperative. Good eye contact. Appropriate mood and affect. SKIN: Warm, dry, normal turgor, no rashes or lesions noted, normal capillary refill. Laboratory Results - last 24 hr CBC, BMP 06/16/19 06:18 06/16/19 06:18 Active Medications Acetaminophen (Tylenol -) 650 mg PO Q4H PRN PRN Reason: FEVER Last Admin: 06/15/19 16:43 Dose: 650 mg Amlodipine Besylate (Norvasc -) 10 mg PO DAILY JONNATHAN Last Admin: 06/15/19 09:18 Dose: Not Given Calcium Acetate (Phoslo -) 1,334 mg PO TIDCM JONNATHAN Last Admin: 06/16/19 12:13 Dose: 1,334 mg Heparin Sodium (Porcine) (Heparin -) 5,000 unit SQ TID JONNATHAN Last Admin: 06/16/19 14:06 Dose: Not Given Ceftriaxone Sodium 2 gm/ (Dextrose) 100 mls @ 200 mls/hr IVPB DAILY [facility]; Protocol Last Admin: 06/16/19 10:00 Dose: 200 mls/hr Sodium Chloride (Normal Saline -) 250 mls @ 3,000 mls/hr IV PRN PRN PRN Reason: Hypotension during Dialysis Stop: 06/17/19 14:02 Insulin Aspart (Novolog Vial Sliding Scale -) 1 vial SQ TIDAC [facility]; Protocol Last Admin: 06/16/19 12:17 Dose: 10 units Insulin Detemir (Levemir Vial) 25 units SQ HS JONNATHAN Last Admin: 06/15/19 22:46 Dose: Not Given Ondansetron HCl (Zofran Injection) 4 mg IVPUSH Q8H PRN PRN Reason: NAUSEA ASSESSMENT/PLAN: Patient is a 48 year old male with PMH of HIV, ESRD (on HD , , S), IDDM, HTN who presents with R groin pain for two days. #Sepsis 2/2 bacteremia Source unclear, likely R 3rd toe ulcer vs AVF access Pt had bloody, foul-smelling drainage from R 3rd toe overnight (R groin lymphadenopathy likely 2/2 wound) Scrotal US small bilateral hydroceles with mild lymphadenopathy on Right. Blood cx positive for Strep Agalactiae Group B Wound cx pending MRI of RLE ordered to r/o abscess/osteomyelitis Podiatry and Wound Care consulted. Pending MRI results and eval in am, pt may go to OR for drainage and amputation ID following (Dr. Rodney). D/c'ed Zosyn. Now on 2gm ceftriaxone and 1gm vanc daily (Day 2) Echo (09/16): normal LV and RV function, EF: 65%. Grade I diastolic dysfunction. Mild MR, mild TR, mild AR Tylenol prn for fevers and pain #ESRD Resume HD (, , S) Nephrology, Dr. Kearney/Dr. Burns following Cont to monitor renal function #HIV Cont YUNG therapy F/u viral load (unsure how to order, refer to ID) #HTN Takes norvasc 5mg daily at home Hold for now, per nephrology #IDDM Uncontrolled, Hgb A1C 7.2 Pt receives 25 units HS lantus at home Start SSI during admission #DVT ppx Heparin TID #FEN No fluids, pt on HD NPO at midnight pending possible surgery tomorrow #Dispo Monitor on med-surg Visit type - Emergency Visit Emergency Visit: No - New Patient This patient is new to me today: No - Critical Care Critical Care patient: No ATTENDING PHYSICIAN STATEMENT I saw and evaluated the patient. I reviewed the resident's note and discussed the case with the resident. I agree with the resident's findings and plan as documented. SUBJECTIVE: OBJECTIVE: ASSESSMENT AND PLAN:
--- NOTE | 2019-06-16 15:59 | PN ---
Progress Note, Physician History of Present Illness: REPORTS EXPRESSING DRAINAGE FROM R THIRD TOE LAST NIGHT BC+ GRP B STREP TEMPS DOWN AFEBRILE REPEAT BC PENDING ECHO NO VEGETATIONS - Current Medication List Current Medications: Active Medications Acetaminophen (Tylenol -) 650 mg PO Q4H PRN PRN Reason: FEVER Last Admin: 06/15/19 16:43 Dose: 650 mg Amlodipine Besylate (Norvasc -) 10 mg PO DAILY [facility] Last Admin: 06/15/19 09:18 Dose: Not Given Calcium Acetate (Phoslo -) 1,334 mg PO TIDCM [facility] Last Admin: 06/16/19 12:13 Dose: 1,334 mg Heparin Sodium (Porcine) (Heparin -) 5,000 unit SQ TID [facility] Last Admin: 06/16/19 14:06 Dose: Not Given Ceftriaxone Sodium 2 gm/ (Dextrose) 100 mls @ 200 mls/hr IVPB DAILY [facility]; Protocol Last Admin: 06/16/19 10:00 Dose: 200 mls/hr Sodium Chloride (Normal Saline -) 250 mls @ 3,000 mls/hr IV PRN PRN PRN Reason: Hypotension during Dialysis Stop: 06/17/19 14:02 Insulin Aspart (Novolog Vial Sliding Scale -) 1 vial SQ TIDAC [facility]; Protocol Last Admin: 06/16/19 12:17 Dose: 10 units Insulin Detemir (Levemir Vial) 25 units SQ HS [facility] Last Admin: 06/15/19 22:46 Dose: Not Given Ondansetron HCl (Zofran Injection) 4 mg IVPUSH Q8H PRN PRN Reason: NAUSEA - Objective Vital Signs: Vital Signs Temperature 98.3 F 06/16/19 13:53 Pulse Rate 86 06/16/19 13:53 Respiratory Rate 20 06/16/19 13:53 Blood Pressure 117/71 06/16/19 13:53 O2 Sat by Pulse Oximetry (%) 100 06/16/19 09:00 Constitutional: Yes: No Distress Eyes: Yes: Conjunctiva Clear Cardiovascular: Yes: Regular Rate and Rhythm, S1, S2 Respiratory: Yes: CTA Bilaterally Gastrointestinal: Yes: Normal Bowel Sounds, Soft. No: Tenderness Extremities: Yes: Other (AVF L UE NO ERYTHEMA/ TENDERNESS + FLUCTUANCE DISTAL R 3RD TOE) Labs: CBC, BMP 06/16/19 06:18 Assessment/Plan GRP B STREP BACTEREMIA/ SEPSIS, LIKELY TOE SOURCE ESRD HIV+ CHECK REPEAT BC CONTINUE CEFTRIAXONE CHECK CD4 COUNT CONFIRM ART REGIMEN
[2019-06-16 16:12] LABS: BLOOD UREA NITROGEN 71.8 mg/dL (7-18); CALCIUM 9.1 mg/dL (8.5-10.1); POTASSIUM 4.2 mmol/L (3.5-5.1)
[2019-06-16 16:14] LABS: CREATININE 14.2 mg/dL (0.55-1.3)
[2019-06-16] MEDS: SEVELAMER CARBONATE 800 MG TAB (FP) PO SCH (16:33)
[2019-06-16] MEDS: INSULIN (LEVEMIR) 100 UNITS/ML UNITS SQ SCH (21:15)
[2019-06-17] MEDS: HEPARIN NA (PORCINE) 5,000 UNITS/ML 1ML VIAL SQ SCH ×3 (06:13→21:13)
[2019-06-17] MEDS: INSULIN SLIDING SCALE (NOVOLOG) 1 VIAL SQ SCH ×3 (06:18→16:39)
[2019-06-17] MEDS ORDERED: DEXTROSE 50%-WATER - 25 GM/50 ML VIAL IVPUSH PRN (06:45)
[2019-06-17] MEDS ORDERED: DEXTROSE 50%-WATER - 25 GM/50 ML VIAL IVPUSH ONE ×2 (07:40→08:00)
[2019-06-17 07:50] LABS: BASO % 0.4 % (0-2.0); EOS % 2.3 % (0-4.5); HEMATOCRIT 33.2 % (35.4-49); HEMOGLOBIN 11.4 GM/dL (11.7-16.9); LYMPH % 19.8 % (8-40); MCH 32.7 pg (25.7-33.7); MCHC 34.3 g/dl (32.0-35.9); MEAN CELL VOLUME 95.2 fl (80-96); MONO % 8.9 % (3.8-10.2); NEUT % 68.6 % (42.8-82.8); PLATELET COUNT 185 K/MM3 (134-434); RBC 3.49 M/mm3 (4.00-5.60); RDW 15.9 % (11.9-15.9); WHITE BLOOD COUNT 8.5 K/mm3 (4.0-10.0)
[2019-06-17] MEDS ORDERED: DEXTROSE 50%-WATER 25 GM/50 ML DISP.SYRIN ONE (08:00)
[2019-06-17 08:05] LABS: ALBUMIN 3.1 g/dl (3.4-5.0); BILIRUBIN,TOTAL 0.4 mg/dL (0.2-1); CALCIUM 9.5 mg/dL (8.5-10.1); MAGNESIUM 3.1 mg/dL (1.8-2.4); PHOSPHOROUS 6.1 mg/dL (2.5-4.9); POTASSIUM 4.4 mmol/L (3.5-5.1); TOT PROT 6.9 g/dl (6.4-8.2)
[2019-06-17] MEDS: CALCIUM ACETATE 667 MG CAPSULE (FP) PO SCH ×3 (08:06→16:31)
[2019-06-17] MEDS: SEVELAMER CARBONATE 800 MG TAB (FP) PO SCH ×3 (08:06→16:31)
[2019-06-17] MEDS ORDERED: DEXTROSE 50%-WATER 25 GM/50 ML DISP.SYRIN IVPUSH ONE (08:15)
[2019-06-17 09:08] LABS: CREATININE 16.1 mg/dL (0.55-1.3)
[2019-06-17] MEDS ORDERED: DEXTROSE 5%-WATER 100 ML IVPB ONE (09:15)
--- NOTE | 2019-06-17 09:31 | CONSULT ---
- Consultation REQUESTING PROVIDER: CONSULT REQUEST: We have been asked to surgically evaluate this patient for right 3rd toe wound. PCP:Satnam Boudreaux MD HISTORY OF PRESENT ILLNESS: Patient is a 48 year old male with PMH of HIV, ESRD , IDDM, HTN who presented to the ER with R groin pain for two days anbd was found to have lymphadenopathy and GRP B STREP BACTEREMIA/ Sepsis. Patient states he developed erythema and edema extending over the lateral aspect of his foot tracking over the dorsum and into the 3rd toe @ 4 days ago. As the edema increased over several days, he then began to notice drainage from the tip or the 3d toe. Pt also complains of associated fevers and chills. He denies any abdominal pain, testicular pain, nausea, vomiting, diarrhea or changes in bowel movements. Pt does not urinate on his own. He did not take anything for pain. He has never experienced these symptoms before. Pt denies any sick contacts. Patient states he follows with a mate relief and vascular surgeon in the city but resides in [place]. Recent Travel: denies PAST MEDICAL HISTORY: As above PAST SURGICAL HISTORY: AV fistula x5 years ago Amputation of R 1st and 2nd toes x2 years ago Cataracts Social History: Smoking: denies Alcohol: denies Drugs: denies Allergies No Known Drug Allergies Allergy (Verified 06/14/19 17:43) HOME MEDICATIONS: Home Medications Medication Instructions Recorded Abacavir Sulfate [Abacavir] 300 mg PO DAILY 06/30/14 Lamivudine [Epivir] 150 mg PO DAILY 06/30/14 Calcium Acetate [Phoslo -] 1,334 mg PO TIDCM #90 capsule 07/16/14 Insulin Glargine,Hum.rec.anlog 25 units SQ HS 07/30/14 [Lantus (10mL VIAL) -] Pen Needle, Diabetic [Novofine] 5 each MC DAILY 09/29/16 Amlodipine Besylate [Norvasc -] 10 mg PO DAILY #30 tablet 07/17/18 Emtricitabine [Emtriva -] 1 tab PO Q96H 07/17/18 Insulin Aspart [Novolog] See Protocol SQ AC #10 cartridge 07/17/18 Rilpivirine HCl [Edurant] 1 tab PO DAILY 07/17/18 Sildenafil Citrate [Viagra] 100 mg PO DAILY PRN 11/28/18 Tenofovir Disoproxil Fumarate 1 tab PO WEEKLY 07/17/18 [Viread -] REVIEW OF SYSTEMS CONSTITUTIONAL:+ fever, chills Absent: diaphoresis, generalized weakness, malaise, loss of appetite, weight change HEENT: Absent: rhinorrhea, nasal congestion, throat pain, throat swelling, difficulty swallowing, CARDIOVASCULAR: Absent: chest pain, lightheadedness, peripheral edema RESPIRATORY: Absent: cough, shortness of breath, dyspnea with exertion, GASTROINTESTINAL: Absent: abdominal pain, abdominal distension, nausea, vomiting, GENITOURINARY: +R groin pain Absent: dysuria, frequency, urgency, MUSCULOSKELETAL: Absent: myalgia, arthralgia, joint swelling, back pain, neck pain SKIN: Absent: rash, itching, pallor HEMATOLOGIC/IMMUNOLOGIC: Absent: easy bleeding, easy bruising, +lymphadenopathy ENDOCRINE: Absent: unexplained weight gain, unexplained weight loss, NEUROLOGIC: Absent: headache, focal weakness or paresthesias, PSYCHIATRIC: Absent: anxiety, depression, suicidal or homicidal ideation, hallucinations. PHYSICAL EXAMINATION Vital Signs - 24 hr 06/14/19 06/14/19 06/14/19 17:40 21:07 21:16 Temperature 100.3 F H 98.4 F 99.6 F Pulse Rate 129 H Pulse Rate [ 106 H 104 H Right Radial] Respiratory 18 16 18 Rate Blood Pressure 130/60 Blood Pressure 131/76 126/72 [Right Arm] O2 Sat by Pulse 98 98 98 Oximetry (%) GENERAL: Awake, alert, and fully oriented, in no acute distress. HEAD: Normal with no signs of trauma. EYES:sclera anicteric, conjunctiva clear. No lid lag. LUNGS: No auditory wheezes, Unlabored resp on RA. No accessory muscle use. MUSCULOSKELETAL: Normal range of motion at all joints. No bony deformities or tenderness. UPPER EXTREMITIES: warm, well-perfused. No cyanosis. No clubbing. No peripheral edema. LOWER EXTREMITIES: Right foot warm 2+ DP pulse, warm, well-perfused. h/o 1st and 2nd toe amputations, well healed. third toe bulbous in appearance with small area of ulceration at the tip over the medial aspect 0.5cm x 0.5cm that appears fluctuant with purulant d/c, no foul odor noted, surrounding tissue intatct with no tracking erythema or edema. No calf tenderness. No peripheral edema. Left foot with +2DP pulses and no rashes or lesions. NEUROLOGICAL: Cranial nerves II-XII intact. Normal speech. Normal gait. PSYCHIATRIC: Cooperative. Good eye contact. Appropriate mood and affect. SKIN: Warm, dry, normal turgor, no rashes or lesions noted, normal capillary refill. CBC, BMP 06/17/19 07:04 06/17/19 07:04 MRI Right LE Pending Problem List - Problems (1) Open toe wound Assessment/Plan: Right 3rd toe wound in patient with bacteremia and HIV. No vascular invervention indicated. -refer to podiatry recommendations regarding wound care and treatment -ABX per ID -Clean dry dressing -Offload pressure sensitive areas -rigid sole walking shoe -OOB as tolerated with assist-fall risk -f/u with vascular surgeon in the city as out patient Evaluation an plan discussed with Dr Lowe Code(s): S91.109A - UNSP OPEN WOUND OF UNSP TOE(S) W/O DAMAGE TO NAIL, INIT
[2019-06-17] MEDS ORDERED: RILPIVIRINE HCL 25 MG TABLET PO SCH (10:00)
[2019-06-17] MEDS ORDERED: TENOFOVIR DISOPROXIL FUMARATE 300 MG TABLET PO SCH (10:00)
[2019-06-17] MEDS ORDERED: EMTRICITABINE 200 MG CAPSULE PO SCH (10:00)
--- NOTE | 2019-06-17 10:55 | PN ---
Progress Note (short form) - Note Progress Note: Podiatry Evaluation: 48 year old diabetic, ESRD (), HIV+ male presents for admission for right third digit diabetic infection. Patient endorses chills at home. He reports 2 week history of wound breakdown. He noted some foul-smelling discharge from the tip of the third toe. He was noted to have bacteremia on admission. Patient being managed by vascular surgeon Dr. Shipman at [place], s/p right hallux and second digit amputation secondary to diabetic infection. Patient had vascular studies last year that were within acceptable limits. He also was seen this past April for vascular f/u. PMHx: IDDM, HTN, ESRD on HD (, ), HIV+ Meds: noted ALL: NKMA DEBORAH: R foot: pedal pulses posterior tibial artery 1/4, dorsalis pedis 2/4, TG wnl. There is a third digit distal tuft diabetic ulcer probing to bone, herniating soft tissue mass noted medially, purulent malodorous drainage expressed from the distal tuft, no soft tissue crepitus; moderate edema to the third digit. No streaking cellulitis. Epicritic and protective sensations grossly intact. MRI: report pending; increased BME third distal tuft Wound Cx: strep agalactiae Blood Cx: strep agalactiae Imp: 48 year old diabetic male with right third digit diabetic infection, osteomyelitis, bacteremia 1. IV abx per infectious disease 2. Discussed treatment options with patient at bedside. I have recommended amputation of the third digit given its clinical appearance and patient is amenable; plan for right third digit amputation today. 3. Will follow. Thank you for the courtesy of this consultation. Aysha Madrigal DPM
--- NOTE | 2019-06-17 11:33 | PN ---
Physical Exam: SUBJECTIVE: Patient seen and examined. No acute events overnight. No fevers or chills. Minimal bleeding from toe ulcer. R groin pain controlled. OBJECTIVE: Vital Signs Period Temp Pulse Resp BP Sys/Lopez Pulse Ox Last 24 Hr 97.7 F-98.9 F 84-98 18-20 114-137/60-81 98 GENERAL: Awake, alert, and fully oriented, in no acute distress. HEAD: Normal with no signs of trauma. EYES: Pupils equal, round and reactive to light, extraocular movements intact, sclera anicteric, conjunctiva clear. No lid lag. EARS, NOSE, THROAT: Ears normal, nares patent, oropharynx clear without exudates. Moist mucous membranes. NECK: Normal range of motion, supple without lymphadenopathy, JVD, or masses. LUNGS: Breath sounds equal, clear to auscultation bilaterally. No wheezes, and no crackles. No accessory muscle use. HEART: Regular rate and rhythm, normal S1 and S2 without murmur, rub or gallop. ABDOMEN: Soft, nontender, not distended, normoactive bowel sounds, no guarding, no rebound, no masses. No hepatomegaly or splenomegaly. GENITOURINARY: Several palpable, tender lymph nodes on R, no testicular swelling or tenderness MUSCULOSKELETAL: Normal range of motion at all joints. No bony deformities or tenderness. No CVA tenderness. EXTREMITIES: 2+ pulses, warm, well-perfused, no edema. S/p R 1st & 2nd toe amputation. R 3rd toe ulcer w/bloody, malodorous discharge. No surrounding cellulitis/tenderness. LUE AVF, no tenderness on palpation, regular bruit on auscultation NEUROLOGICAL: Cranial nerves II-XII intact. Normal speech. Normal gait. PSYCHIATRIC: Cooperative. Good eye contact. Appropriate mood and affect. SKIN: Warm, dry, normal turgor, no rashes or lesions noted, normal capillary refill. Laboratory Results - last 24 hr CBC, BMP 06/17/19 07:04 06/17/19 07:04 Active Medications Acetaminophen (Tylenol -) 650 mg PO Q4H PRN PRN Reason: FEVER Last Admin: 06/15/19 16:43 Dose: 650 mg Amlodipine Besylate (Norvasc -) 10 mg PO DAILY JONNATHAN Last Admin: 06/15/19 09:18 Dose: Not Given Calcium Acetate (Phoslo -) 1,334 mg PO TIDCM [facility] Last Admin: 06/17/19 08:06 Dose: Not Given Emtricitabine (Emtriva -) 200 mg PO Q96H JONNATHAN Heparin Sodium (Porcine) (Heparin -) 5,000 unit SQ TID JONNATHAN Last Admin: 06/17/19 06:13 Dose: Not Given Ceftriaxone Sodium 2 gm/ (Dextrose) 100 mls @ 200 mls/hr IVPB DAILY [facility]; Protocol Last Admin: 06/16/19 10:00 Dose: 200 mls/hr Sodium Chloride (Normal Saline -) 250 mls @ 3,000 mls/hr IV PRN PRN PRN Reason: Hypotension during Dialysis Stop: 06/17/19 14:02 Insulin Aspart (Novolog Vial Sliding Scale -) 1 vial SQ TIDAC [facility]; Protocol Last Admin: 06/17/19 06:18 Dose: Not Given Insulin Detemir (Levemir Vial) 25 units SQ HS [facility] Last Admin: 06/16/19 21:15 Dose: 25 units Ondansetron HCl (Zofran Injection) 4 mg IVPUSH Q8H PRN PRN Reason: NAUSEA Sevelamer Carbonate (Renvela -) 800 mg PO TIDCM [facility] Last Admin: 06/17/19 08:06 Dose: Not Given Tenofovir Disoproxil Fumarate (Viread -) 300 mg PO Q7D [facility] ASSESSMENT/PLAN: Patient is a 48 year old male with PMH of HIV, ESRD (on HD T, Th, S), IDDM, HTN who presents with R groin pain for two days. #Sepsis 2/2 bacteremia Source likely R 3rd toe ulcer vs AVF access Pt had bloody, foul-smelling drainage from R 3rd toe overnight (R groin lymphadenopathy likely 2/2 wound) Blood cx positive for Strep Agalactiae Group B Wound cx positive for Strep Agalactiae Group B MRI of RLE: osteomyelitis of 3rd R toe Scrotal US small bilateral hydroceles with mild lymphadenopathy on Right. Podiatry and Wound Care consulted, plan for amputation today. ID following (Dr. Rodney), cont 2gm ceftriaxone and 1gm vanc daily (Day 3) Echo (06/16): normal LV and RV function, EF: 65%. Grade I diastolic dysfunction. Mild MR, mild TR, mild AR Tylenol prn for fevers and pain #ESRD Resume HD (T, Th, S) Nephrology, Dr. Kearney/Dr. Burns following Cont to monitor renal function #HIV Cont YUNG therapy F/u viral studies ID following, recommendations appreciated #HTN Takes norvasc 5mg daily at home Hold for now, per nephrology #IDDM Uncontrolled, Hgb A1C 7.2 Pt receives 25 units HS lantus at home Start SSI during admission #DVT ppx Heparin TID #FEN No fluids, pt on HD Diet referred to surgery for post-op #Dispo Monitor on med-surg Visit type - Emergency Visit Emergency Visit: No - New Patient This patient is new to me today: No - Critical Care Critical Care patient: No ATTENDING PHYSICIAN STATEMENT I saw and evaluated the patient. I reviewed the resident's note and discussed the case with the resident. I agree with the resident's findings and plan as documented. SUBJECTIVE: OBJECTIVE: ASSESSMENT AND PLAN:
--- NOTE | 2019-06-17 11:44 | PN ---
Teaching Attending Note Name of Resident: Patty Melendez ATTENDING PHYSICIAN STATEMENT I saw and evaluated the patient. I reviewed the resident's note and discussed the case with the resident. I agree with the resident's findings and plan as documented. SUBJECTIVE: Feels well, on HD during interview. Denies pain R 3rd toe. No further fevers. OBJECTIVE: Fever resolved, Hemodynamically Stable Last Vital Signs Temp Pulse Resp BP Pulse Ox 97.7 F 93 H 18 137/75 98 06/17/19 08:50 06/17/19 09:25 06/17/19 09:25 06/17/19 09:25 06/16/19 21:00 Heart - S1, S2, RRR Lungs - clear to auscultation. Abdomen - Soft, non-tender. Bowel Sounds normal. R inguinal tender lymphadenopathy Extremities - no edema, no calf tenderness. s/p R 1/2 toe amputation. R 3rd toe ulcer with bloodypurulent malodrous discharge without surrounding cellulitis/ tenderness. LUE AVF. Laboratory Results - last 24 hr 06/16/19 06/16/19 06/16/19 06:18 12:11 14:27 WBC RBC Hgb Hct MCV MCH MCHC RDW Plt Count MPV Absolute Neuts (auto) Neutrophils % Lymphocytes % Monocytes % Eosinophils % Basophils % Nucleated RBC % Sodium 134 L Potassium 4.2 Chloride 94 L Carbon Dioxide 27 Anion Gap 13 BUN 71.8 H Creatinine 14.2 H* Est GFR (CKD-EPI)AfAm 4.18 Est GFR (CKD-EPI)NonAf 3.61 POC Glucometer 416 Random Glucose 221 H Hemoglobin A1c % 7.2 H Calcium 9.1 Phosphorus Magnesium Total Bilirubin AST ALT Alkaline Phosphatase Total Protein Albumin Vancomycin Pre-Dose 06/16/19 06/16/19 06/17/19 16:31 21:10 06:17 WBC RBC Hgb Hct MCV MCH MCHC RDW Plt Count MPV Absolute Neuts (auto) Neutrophils % Lymphocytes % Monocytes % Eosinophils % Basophils % Nucleated RBC % Sodium Potassium Chloride Carbon Dioxide Anion Gap BUN Creatinine Est GFR (CKD-EPI)AfAm Est GFR (CKD-EPI)NonAf POC Glucometer 78 256 73 Random Glucose Hemoglobin A1c % Calcium Phosphorus Magnesium Total Bilirubin AST ALT Alkaline Phosphatase Total Protein Albumin Vancomycin Pre-Dose 06/17/19 06/17/19 06/17/19 07:04 07:04 07:04 WBC 8.5 RBC 3.49 L Hgb 11.4 L Hct 33.2 L MCV 95.2 MCH 32.7 MCHC 34.3 RDW 15.9 Plt Count 185 MPV 8.0 Absolute Neuts (auto) 5.8 Neutrophils % 68.6 Lymphocytes % 19.8 D Monocytes % 8.9 Eosinophils % 2.3 Basophils % 0.4 Nucleated RBC % 0 Sodium 136 Potassium 4.4 Chloride 97 L Carbon Dioxide 26 Anion Gap 14 BUN 85.0 H Creatinine 16.1 H* Est GFR (CKD-EPI)AfAm 3.59 Est GFR (CKD-EPI)NonAf 3.10 POC Glucometer Random Glucose 79 Hemoglobin A1c % Calcium 9.5 Phosphorus 6.1 H Magnesium 3.1 H Total Bilirubin 0.4 AST 14 L ALT 20 Alkaline Phosphatase 71 Total Protein 6.9 Albumin 3.1 L Vancomycin Pre-Dose 15.4 L 06/17/19 07:45 WBC RBC Hgb Hct MCV MCH MCHC RDW Plt Count MPV Absolute Neuts (auto) Neutrophils % Lymphocytes % Monocytes % Eosinophils % Basophils % Nucleated RBC % Sodium Potassium Chloride Carbon Dioxide Anion Gap BUN Creatinine Est GFR (CKD-EPI)AfAm Est GFR (CKD-EPI)NonAf POC Glucometer 88 Random Glucose Hemoglobin A1c % Calcium Phosphorus Magnesium Total Bilirubin AST ALT Alkaline Phosphatase Total Protein Albumin Vancomycin Pre-Dose Current Medications Generic Name Dose Route Start Last Admin Trade Name Freq PRN Reason Stop Dose Admin Acetaminophen 650 mg 06/15/19 01:18 06/15/19 16:43 Tylenol - PO 650 mg Q4H PRN Administration FEVER Amlodipine Besylate 10 mg 06/15/19 10:00 06/15/19 09:18 Norvasc - PO Not Given DAILY [facility] Calcium Acetate 1,334 mg 06/15/19 08:00 06/17/19 08:06 Phoslo - PO Not Given TIDCM JONNATHAN Emtricitabine 200 mg 06/17/19 10:00 Emtriva - PO Q96H JONNATHAN Heparin Sodium (Porcine) 5,000 unit 06/14/19 22:00 06/17/19 06:13 Heparin - SQ Not Given TID JONNATHAN Ceftriaxone Sodium 2 gm/ 100 mls @ 200 mls/hr 06/15/19 11:45 06/16/19 10:00 Dextrose IVPB 200 mls/hr DAILY JONNATHAN Administration Protocol Sodium Chloride 250 mls @ 3,000 mls/hr 06/16/19 14:02 Normal Saline - IV 06/17/19 14:02 PRN PRN Hypotension during Dialysis Insulin Aspart 1 vial 06/15/19 07:00 06/17/19 06:18 Novolog Vial Sliding Scale - SQ Not Given TIDAC [facility] Protocol Insulin Detemir 25 units 06/15/19 22:00 06/16/19 21:15 Levemir Vial SQ 25 units HS [facility] Administration Ondansetron HCl 4 mg 06/15/19 11:19 Zofran Injection IVPUSH Q8H PRN NAUSEA Sevelamer Carbonate 800 mg 06/16/19 17:30 06/17/19 08:06 Renvela - PO Not Given TIDCM [facility] Tenofovir Disoproxil Fumarate 300 mg 06/17/19 10:00 Viread - PO Q7D [facility] Home Medications Medication Instructions Recorded Calcium Acetate [Phoslo -] 1,334 mg PO TIDCM #90 capsule 07/16/14 Emtricitabine [Emtriva -] 200 mg PO Q96H 07/17/18 Rilpivirine HCl [Edurant] 25 mg PO DAILY 07/17/18 Tenofovir Disoproxil Fumarate 300 mg PO WEEKLY 07/17/18 [Viread -] Amlodipine Besylate 5 mg PO 06/16/19 Sevelamer HCl 800 mg PO TID 06/16/19 ASSESSMENT/PLAN: 48 year old male with history of HIV (on HAART), ESRD (HD TTS via LUE AVF), DM 2 , HTN, presents with R groin pain and fever/chills for two days. Scrotal US - small bilateral hydroceles, mildly enlarged LNs on R 1. Sepsis secondary to Gram positive Bacteremia, likely secondary to R 3rd toe infected ulcer Scrotal US small bilateral hydroceles with mild lymphadenopathy on Right. CT A/P shows no intra-abdominal source. No lymphadenoapthy seen. MRI R foot - prelim read confirms osteomyelitis. Blood Cx pos for Strep agalactae Echo - grade I diastolic dysfunction. Zosyn, Vancomycin switched to IV ceftriaxone by ID Podiatry plans for OR today for 3rd toe amputation, currently NPO. Wound care/Vascular consult appreciated. 2. HIV on HAART ID following 3. ESRD on HD via LUE AVF TTS Nephrology consulted - Stable. On HD today. 4. HTN - Norvasc held due to borderline BP in setting of sepsis. 5. DM 2 - Hypoglycemic this AM as he is NPO - received 1 amp D50. Normally DM uncontrolled, A1c 7.2. Continue Levemir/Novolog sliding scale once oral intake resumes post-operatively. DVT Px - Heparin SQ
[2019-06-17] MEDS ORDERED: LIDOCAINE HCL 1%, 10 MG/ML (20ML VIAL) ONE (13:02)
[2019-06-17] MEDS ORDERED: LIDOCAINE HCL/PF 2% SDV 5ML VIAL ONE (13:20)
[2019-06-17] MEDS ORDERED: MIDAZOLAM HCL 2 MG/2 ML SINGLE DOSE VIAL ONE (13:20)
[2019-06-17] MEDS ORDERED: PROPOFOL 20 ML ONE ×2 (13:20)
[2019-06-17 13:37] LABS: BLOOD UREA NITROGEN 21.8 mg/dL (7-18); CREATININE 4.5 mg/dL (0.55-1.3)
[2019-06-17] MEDS ORDERED: LIDOCAINE HCL 1%, 10 MG/ML (20ML VIAL) INF ONE (13:39)
[2019-06-17] MEDS ORDERED: SODIUM CHLORIDE 1,000 ML IV SCH (14:30)
--- NOTE | 2019-06-17 16:00 | OP ---
Operative Note - Note: Operative Date: 06/17/19 Pre-Operative Diagnosis: acute osteomyelitis right third digit with bacteremia Operation: right third digit amputation Findings: see operative note Post-Operative Diagnosis: Same as Pre-op Surgeon: Keshav Madrigal Anesthesia: Local, MAC Specimens Removed: right third digit, bone and soft tissue. abscess right third digit Estimated Blood Loss (mls): 10 Operative Report Dictated: Yes
--- NOTE | 2019-06-17 16:19 | PN ---
Progress Note, Physician History of Present Illness: S/P AMPUTATION R THIRD TOE NO C/O PAIN TEMPS DOWN AFEBRILE REPEAT BC (-) ECHO NO VEGETATIONS CD4 [id number] - Current Medication List Current Medications: Active Medications Acetaminophen (Tylenol -) 650 mg PO Q4H PRN PRN Reason: FEVER Last Admin: 06/15/19 16:43 Dose: 650 mg Amlodipine Besylate (Norvasc -) 10 mg PO DAILY [facility] Last Admin: 06/15/19 09:18 Dose: Not Given Calcium Acetate (Phoslo -) 1,334 mg PO TIDCM [facility] Last Admin: 06/17/19 08:06 Dose: Not Given Emtricitabine (Emtriva -) 200 mg PO Q96H [facility] Fentanyl (Sublimaze Injection -) 25 mcg IVPUSH [id number] PRN PRN Reason: PAIN-PACU ORDER X 4 DOSES ONLY Heparin Sodium (Porcine) (Heparin -) 5,000 unit SQ TID [facility] Last Admin: 06/17/19 06:13 Dose: Not Given Ceftriaxone Sodium 2 gm/ (Dextrose) 100 mls @ 200 mls/hr IVPB DAILY [facility]; Protocol Last Admin: 06/16/19 10:00 Dose: 200 mls/hr Sodium Chloride (Normal Saline -) 1,000 mls @ 42 mls/hr IV ASDIR [facility] Insulin Aspart (Novolog Vial Sliding Scale -) 1 vial SQ TIDAC [facility]; Protocol Last Admin: 06/17/19 06:18 Dose: Not Given Insulin Detemir (Levemir Vial) 25 units SQ HS [facility] Last Admin: 06/16/19 21:15 Dose: 25 units Ondansetron HCl (Zofran Injection) 4 mg IVPUSH Q8H PRN PRN Reason: NAUSEA Sevelamer Carbonate (Renvela -) 800 mg PO TIDCM [facility] Last Admin: 06/17/19 08:06 Dose: Not Given Tenofovir Disoproxil Fumarate (Viread -) 300 mg PO Q7D [facility] - Objective Vital Signs: Vital Signs Temperature 97.4 F L 06/17/19 15:45 Pulse Rate 79 06/17/19 15:45 Respiratory Rate 18 06/17/19 15:45 Blood Pressure 128/74 06/17/19 15:45 O2 Sat by Pulse Oximetry (%) 98 06/17/19 15:45 Constitutional: Yes: No Distress Cardiovascular: Yes: Regular Rate and Rhythm, S1, S2 Respiratory: Yes: CTA Bilaterally Gastrointestinal: Yes: Normal Bowel Sounds, Soft. No: Tenderness Extremities: Yes: Other (POST OP DRESSSING IN PLACE) Labs: CBC, BMP 06/17/19 07:04 06/17/19 12:25 Assessment/Plan GRP B STREP BACTEREMIA/ SEPSIS, LIKELY TOE SOURCE ESRD HIV+ REPEAT BC (-) CONTINUE CEFTRIAXONE CAN CONTINUE OUTPATIENT ANTIBIOTIC THERAPY AT HD
[2019-06-17] MEDS: CEFTRIAXONE 2 GM in DEXTROSE 5%-WATER 100 ML IVPB SCH (16:26)
[2019-06-17] MEDS ORDERED: INSULIN (LEVEMIR) 100 UNITS/ML UNITS SQ ONE (21:32)
[2019-06-17] MEDS: INSULIN (LEVEMIR) 100 UNITS/ML UNITS SQ SCH (21:34)
[2019-06-18] MEDS: HEPARIN NA (PORCINE) 5,000 UNITS/ML 1ML VIAL SQ SCH ×3 (06:12→22:14)
[2019-06-18] MEDS: INSULIN SLIDING SCALE (NOVOLOG) 1 VIAL SQ SCH ×4 (06:18→17:12)
[2019-06-18] MEDS ORDERED: ONDANSETRON 4 MG/2 ML VIAL IVPUSH PRN (07:06)
[2019-06-18] MEDS ORDERED: ACETAMINOPHEN 325 MG TABLET (FP) PO PRN (07:06)
[2019-06-18] MEDS: SODIUM CHLORIDE 1,000 ML IV SCH (07:27)
[2019-06-18 07:30] LABS: BASO % 0.4 % (0-2.0); EOS % 2.9 % (0-4.5); HEMATOCRIT 33.3 % (35.4-49); HEMOGLOBIN 11.4 GM/dL (11.7-16.9); LYMPH % 28.5 % (8-40); MCH 32.7 pg (25.7-33.7); MCHC 34.3 g/dl (32.0-35.9); MEAN CELL VOLUME 95.4 fl (80-96); MEAN PLT VOLUME 7.8 fl (7.5-11.1); MONO % 9.7 % (3.8-10.2); NEUT % 58.5 % (42.8-82.8); PLATELET COUNT 228 K/MM3 (134-434); RBC 3.49 M/mm3 (4.00-5.60); RDW 15.8 % (11.9-15.9); WHITE BLOOD COUNT 6.2 K/mm3 (4.0-10.0)
[2019-06-18] MEDS: CALCIUM ACETATE 667 MG CAPSULE (FP) PO SCH ×3 (07:31→16:59)
[2019-06-18] MEDS: SEVELAMER CARBONATE 800 MG TAB (FP) PO SCH ×3 (07:31→16:59)
[2019-06-18 07:49] LABS: ALBUMIN 3.1 g/dl (3.4-5.0); BILIRUBIN,TOTAL 0.5 mg/dL (0.2-1); BLOOD UREA NITROGEN 38.6 mg/dL (7-18); CALCIUM 9.5 mg/dL (8.5-10.1); MAGNESIUM 2.4 mg/dL (1.8-2.4); PHOSPHOROUS 5.7 mg/dL (2.5-4.9); POTASSIUM 5.1 mmol/L (3.5-5.1); TOT PROT 7.1 g/dl (6.4-8.2)
[2019-06-18 07:51] LABS: CREATININE 10.1 mg/dL (0.55-1.3)
[2019-06-18] MEDS ORDERED: PT OWN MED DRAWER 7, Y5N ONE (08:46)
[2019-06-18] MEDS ORDERED: DEXTROSE 5%-WATER 100 ML IVPB ONE (08:46)
--- NOTE | 2019-06-18 09:00 | PN ---
Progress Note (short form) - Note Progress Note: 48M POD#1 for right foot 3rd toe amputation under MAC. No apparent anesthesia related complications. Continue management per primary team.
[2019-06-18] MEDS: CEFTRIAXONE 2 GM in DEXTROSE 5%-WATER 100 ML IVPB SCH (09:08)
[2019-06-18] MEDS: amLODIPine BESYLATE 10 MG TABLET (FP) PO SCH ×2 (09:08→11:57)
[2019-06-18] MEDS: RILPIVIRINE HCL 25 MG TABLET PO SCH ×2 (09:08→11:57)
--- NOTE | 2019-06-18 11:24 | DS ---
Physical Exam: SUBJECTIVE: Patient seen and examined. No acute events overnight. Pain is controlled. OBJECTIVE: Vital Signs Period Temp Pulse Resp BP Sys/Lopez Pulse Ox Last 24 Hr 97.4 F-99.1 F 77-99 14-18 103-135/56-82 96-99 PHYSICAL EXAM GENERAL: The patient is awake, alert, and fully oriented, in no acute distress. HEAD: Normal with no signs of trauma. EYES: PERRL, extraocular movements intact, sclera anicteric, conjunctiva clear. ENT: Ears normal, nares patent, oropharynx clear without exudates, moist mucous membranes. NECK: Trachea midline, full range of motion, supple. LUNGS: Breath sounds equal, clear to auscultation bilaterally, no wheezes, no crackles, no accessory muscle use. HEART: Regular rate and rhythm, S1, S2 without murmur, rub or gallop. ABDOMEN: Soft, nontender, nondistended, normoactive bowel sounds, no guarding, no rebound, no hepatosplenomegaly, no masses. EXTREMITIES: 2+ pulses, warm, well-perfused, no edema. S/p R 1st & 2nd toe amputation in past. S/p R 3rd toe amputation 1 day ago. Dressing C/D/I. LUE AVF , no tenderness on palpation, regular bruit on auscultation NEUROLOGICAL: Cranial nerves II through XII grossly intact. Normal speech, gait not observed. PSYCH: Normal mood, normal affect. SKIN: Warm, dry, normal turgor, no rashes or lesions noted. LABS Laboratory Results - last 24 hr CBC, BMP 06/18/19 06:25 06/18/19 06:25 HOSPITAL COURSE: Date of Admission:06/14/19 Date of Discharge: 06/18/19 Discharge Summary Problems reviewed: Yes Reason For Visit: FEVER WITH CHILLS, HIV DISEASE, END STAGE RENAL Current Active Problems Essential hypertension (Acute) Fever and chills (Acute) HIV disease (Acute) Open toe wound (Acute) Right groin pain (Acute) ESRD (end stage renal disease) on dialysis (Chronic) Condition: Stable - Instructions Referrals: ON STAFF,NOT [Primary Care Provider] - - Home Medications Comprehensive Discharge Medication List: Ambulatory Orders Calcium Acetate [Phoslo -] 1,334 mg PO TIDCM #90 capsule 07/16/14 Emtricitabine [Emtriva -] 200 mg PO Q96H 07/17/18 Rilpivirine HCl [Edurant] 25 mg PO DAILY 07/17/18 Tenofovir Disoproxil Fumarate [Viread -] 300 mg PO WEEKLY 07/17/18 Amlodipine Besylate 5 mg PO 06/16/19 Sevelamer HCl 800 mg PO TID 06/16/19 - Discharge Referral Referred to [facility] No ATTENDING PHYSICIAN STATEMENT I saw and evaluated the patient. I reviewed the resident's note and discussed the case with the resident. I agree with the resident's findings and plan as documented. SUBJECTIVE: OBJECTIVE: ASSESSMENT AND PLAN:
--- NOTE | 2019-06-18 12:10 | EKG ---
Test Reason : Blood Pressure : / mmHG Vent. Rate : 077 BPM Atrial Rate : 077 BPM P-R Int : 148 ms QRS Dur : 096 ms QT Int : 422 ms P-R-T Axes : 059 093 026 degrees QTc Int : 477 ms NORMAL SINUS RHYTHM POSSIBLE LEFT ATRIAL ENLARGEMENT RIGHTWARD AXIS LEFT VENTRICULAR HYPERTROPHY NONSPECIFIC ST ABNORMALITY ABNORMAL ECG WHEN COMPARED WITH ECG OF 14-JUN-2019 20:52, NO SIGNIFICANT CHANGE WAS FOUND Confirmed by GABO MANLEY, JOSH ([id number]) on 06/18/2019 12:10:25 PM Referred By: Confirmed By:JOSH AYON MD
--- NOTE | 2019-06-18 13:29 | PN ---
Progress Note (short form) - Note Progress Note: Renal follow up for ESRD on HD Seen and examined at the bedside no acute complaints s/p amputation of 3rd digit on right foot yesterday denies any fever, chills, sob, cp, abd pain had dialysis yesterday w/o complication Vital Signs Temperature 97.9 F 06/18/19 10:00 Pulse Rate 86 06/18/19 10:00 Respiratory Rate 18 06/18/19 10:00 Blood Pressure 120/66 06/18/19 10:00 O2 Sat by Pulse Oximetry (%) 96 06/18/19 09:00 Intake & Output 06/15/19 06/16/19 06/17/19 06/18/19 23:59 23:59 23:59 23:59 Intake Total 630 800 870 200 Output Total 200 1605 Balance 430 800 -735 200 Weight 68.81 kg 67.273 kg 68.175 kg 67.495 kg NAD awake and alert RRR CTA no LE edema CBC, BMP 06/18/19 06:25 06/18/19 06:25 Current Medications Acetaminophen (Tylenol -) 650 mg PO Q4H PRN PRN Reason: FEVER Amlodipine Besylate (Norvasc -) 10 mg PO DAILY [facility] Last Admin: 06/18/19 11:57 Dose: 10 mg Calcium Acetate (Phoslo -) 1,334 mg PO TIDCM [facility] Last Admin: 06/18/19 11:56 Dose: 1,334 mg Emtricitabine (Emtriva -) 200 mg PO Q96H [facility] Fentanyl (Sublimaze Injection -) 25 mcg IVPUSH [id number] PRN PRN Reason: PAIN-PACU ORDER X 4 DOSES ONLY Stop: 06/19/19 07:05 Heparin Sodium (Porcine) (Heparin -) 5,000 unit SQ TID [facility] Last Admin: 06/18/19 13:21 Dose: Not Given Ceftriaxone Sodium 2 gm/ (Dextrose) 100 mls @ 200 mls/hr IVPB DAILY [facility]; Protocol Last Admin: 06/18/19 09:08 Dose: 200 mls/hr Sodium Chloride (Normal Saline -) 1,000 mls @ 42 mls/hr IV ASDIR [facility] Last Admin: 06/18/19 07:27 Dose: Not Given Insulin Aspart (Novolog Vial Sliding Scale -) 1 vial SQ TIDAC [facility]; Protocol Last Admin: 06/18/19 11:02 Dose: 4 units Insulin Detemir (Levemir Vial) 25 units SQ HS [facility] Ondansetron HCl (Zofran Injection) 4 mg IVPUSH Q8H PRN PRN Reason: NAUSEA Sevelamer Carbonate (Renvela -) 800 mg PO TIDCM [facility] Last Admin: 06/18/19 11:57 Dose: 800 mg Tenofovir Disoproxil Fumarate (Viread -) 300 mg PO Q7D [facility] 48 year old male with pmhx of ESRD, HIV, DM, and HTN who presents with generalized malaise and lower ext discomfort. 1. Gram positive bacteremia 2. Sepsis 3. ESRD on HD 4. DM type 2 5. Hypertension for dialysis tomorrow (be be inpatient vs. outpatient based on discharge plan) Will need continued antibiotics with dialysis. Will clarify length of time with ID. H/H at goal Podiatry follow up Krzysztof Pearce DO
--- NOTE | 2019-06-18 13:49 | PN ---
Teaching Attending Note Name of Resident: Patty Melendez ATTENDING PHYSICIAN STATEMENT I saw and evaluated the patient. I reviewed the resident's note and discussed the case with the resident. I agree with the resident's findings and plan as documented. SUBJECTIVE: Feels well post-op with mild foot discomfort. No further fevers. OBJECTIVE: Fever resolved, Hemodynamically Stable Last Vital Signs Temp Pulse Resp BP Pulse Ox 97.9 F 86 18 120/66 96 06/18/19 10:00 06/18/19 10:00 06/18/19 10:00 06/18/19 10:00 06/18/19 09:00 Heart - S1, S2, RRR Lungs - clear to auscultation. Abdomen - Soft, non-tender. Bowel Sounds normal. R inguinal tender lymphadenopathy Extremities - no edema, no calf tenderness. R foot dressed post-peratively. Exam 06/17 - s/p R 1/2 toe amputation. R 3rd toe ulcer with bloodypurulent malodrous discharge without surrounding cellulitis/tenderness. LUE AVF. Laboratory Results - last 24 hr 06/17/19 06/17/19 06/17/19 08:55 14:30 16:36 WBC RBC Hgb Hct MCV MCH MCHC RDW Plt Count MPV Absolute Neuts (auto) Neutrophils % Lymphocytes % Monocytes % Eosinophils % Basophils % Nucleated RBC % Sodium Potassium Chloride Carbon Dioxide Anion Gap BUN Creatinine Est GFR (CKD-EPI)AfAm Est GFR (CKD-EPI)NonAf POC Glucometer 98 72 Random Glucose Calcium Phosphorus Magnesium Total Bilirubin AST ALT Alkaline Phosphatase Total Protein Albumin Hep Bs Antigen Negative Hep C Ab Diagnostic <0.1 06/17/19 06/18/19 06/18/19 21:08 06:15 06:25 WBC 6.2 RBC 3.49 L Hgb 11.4 L Hct 33.3 L MCV 95.4 MCH 32.7 MCHC 34.3 RDW 15.8 Plt Count 228 D MPV 7.8 Absolute Neuts (auto) 3.6 Neutrophils % 58.5 Lymphocytes % 28.5 D Monocytes % 9.7 Eosinophils % 2.9 Basophils % 0.4 Nucleated RBC % 0 Sodium Potassium Chloride Carbon Dioxide Anion Gap BUN Creatinine Est GFR (CKD-EPI)AfAm Est GFR (CKD-EPI)NonAf POC Glucometer 279 86 Random Glucose Calcium Phosphorus Magnesium Total Bilirubin AST ALT Alkaline Phosphatase Total Protein Albumin Hep Bs Antigen Hep C Ab Diagnostic 06/18/19 06/18/19 06:25 11:00 WBC RBC Hgb Hct MCV MCH MCHC RDW Plt Count MPV Absolute Neuts (auto) Neutrophils % Lymphocytes % Monocytes % Eosinophils % Basophils % Nucleated RBC % Sodium 141 Potassium 5.1 Chloride 100 Carbon Dioxide 33 H Anion Gap 8 BUN 38.6 H Creatinine 10.1 H* Est GFR (CKD-EPI)AfAm 6.32 Est GFR (CKD-EPI)NonAf 5.45 POC Glucometer 226 Random Glucose 79 Calcium 9.5 Phosphorus 5.7 H Magnesium 2.4 Total Bilirubin 0.5 AST 13 L ALT 18 Alkaline Phosphatase 67 Total Protein 7.1 Albumin 3.1 L Hep Bs Antigen Hep C Ab Diagnostic Current Medications Generic Name Dose Route Start Last Admin Trade Name Freq PRN Reason Stop Dose Admin Acetaminophen 650 mg 06/18/19 07:06 Tylenol - PO Q4H PRN FEVER Amlodipine Besylate 10 mg 06/18/19 10:00 06/18/19 11:57 Norvasc - PO 10 mg DAILY [facility] Administration Calcium Acetate 1,334 mg 06/18/19 08:00 06/18/19 11:56 Phoslo - PO 1,334 mg TIDCM [facility] Administration Emtricitabine 200 mg 06/21/19 10:00 Emtriva - PO Q96H [facility] Fentanyl 25 mcg 06/18/19 07:06 Sublimaze Injection - IVPUSH 06/19/19 07:05 [id number] PRN PAIN-PACU ORDER X 4 DOSES ONLY Heparin Sodium (Porcine) 5,000 unit 06/18/19 14:00 06/18/19 13:21 Heparin - SQ Not Given TID [facility] Ceftriaxone Sodium 2 gm/ 100 mls @ 200 mls/hr 06/18/19 10:00 06/18/19 09:08 Dextrose IVPB 200 mls/hr DAILY [facility] Administration Protocol Sodium Chloride 1,000 mls @ 42 mls/hr 06/18/19 07:06 06/18/19 07:27 Normal Saline - IV Not Given ASDIR [facility] Insulin Aspart 1 vial 06/18/19 11:00 06/18/19 11:02 Novolog Vial Sliding Scale - SQ 4 units TIDAC [facility] Administration Protocol Insulin Detemir 25 units 06/18/19 22:00 Levemir Vial SQ HS [facility] Ondansetron HCl 4 mg 06/18/19 07:06 Zofran Injection IVPUSH Q8H PRN NAUSEA Sevelamer Carbonate 800 mg 06/18/19 08:00 06/18/19 11:57 Renvela - PO 800 mg TIDCM [facility] Administration Tenofovir Disoproxil Fumarate 300 mg 06/24/19 10:00 Viread - PO Q7D [facility] Home Medications Medication Instructions Recorded Calcium Acetate [Phoslo -] 1,334 mg PO TIDCM #90 capsule 07/16/14 Emtricitabine [Emtriva -] 200 mg PO Q96H 07/17/18 Rilpivirine HCl [Edurant] 25 mg PO DAILY 07/17/18 Tenofovir Disoproxil Fumarate 300 mg PO WEEKLY 07/17/18 [Viread -] Amlodipine Besylate 5 mg PO 06/16/19 Sevelamer HCl 800 mg PO TID 06/16/19 ASSESSMENT/PLAN: 48 year old male with history of HIV (on HAART), ESRD (HD TTS via LUE AVF), DM 2 , HTN, presents with R groin pain and fever/chills for two days. Scrotal US - small bilateral hydroceles, mildly enlarged LNs on R CT A/P shows no intra-abdominal source. No lymphadenoapthy seen. 1. Sepsis secondary to Gram positive Bacteremia, secondary to R 3rd toe infected ulcer/osteomyelitis POD 1 s/p amputation R 3rd toe MRI R foot - confirmed osteomyelitis. Blood/wound Cx pos for Strep agalactae Echo - grade I diastolic dysfunction. Zosyn, Vancomycin switched to IV ceftriaxone by ID Wound care/Vascular consult appreciated. To continue IV ceftriaxone on HD on discharge - ID to guide duration of Abx therapy. Follow up Podiatry, ID, Nephrology. 2. HIV on HAART ID following 3. ESRD on HD via LUE AVF TTS Nephrology consulted - Stable. On HD today. 4. HTN - Norvasc resumed. 5. DM 2 - Continue Levemir/Novolog sliding scale once oral intake resumes post- operatively. DVT Px - Heparin SQ Medically Stable for discharge pending Podiatry and ID recommendations.
--- NOTE | 2019-06-18 14:43 | OP ---
DATE OF OPERATION: 06/17/2019 PREOPERATIVE DIAGNOSIS: Right third toe osteomyelitis with bacteremia. POSTOPERATIVE DIAGNOSIS: Right third toe osteomyelitis with bacteremia. PROCEDURE: Right third toe amputation. SURGEON: Keshav Madrigal DPM DOCUMENTATION BILLING CLERK: None. ANESTHESIA: IV sedation with local. HEMOSTASIS: Surgical dissection. ESTIMATED BLOOD LOSS: Minimal. PATHOLOGY: 1. Abscess, right 3rd toe distal tuft. 2. Right 3rd toe bone and soft tissue. COMPLICATIONS: None. DESCRIPTION OF PROCEDURE: Patient was brought to the operating room and placed on the operating table in a supine position. Following induction of IV sedation, local anesthesia was achieved using 10 mL of 2% lidocaine plain. The right foot was scrubbed, prepped, and draped in the usual sterile fashion. Attention was directed to the right 3rd toe where a distal tuft ulcer with a herniating abscess and probing down to bone was visualized and appreciated. I began by excising the chronic abscessed tissue which appeared like a soft tissue mass which was herniating through the skin. Once this soft tissue lesion was excised in its entirety, it was sent for pathology separately. Next, I performed a 3.5-cm linear longitudinal incision over the 3rd metatarsal. The incision was carried distally in tennis racquet fashion to circumscribe the 3rd toe. The incision was deepened using sharp and blunt dissection, taking care to retract vital neuro and vascular structures. All bleeders were cauterized and ligated as needed. Next, the 3rd toe was disarticulated at the level of the 3rd metatarsophalangeal joint. The tissues and bone of the posterior pharynx, middle phalanx, and distal phalanx were noted to be soft and diseased, with purulent drainage. Once the 3rd digit was disarticulated, it was removed from the operative site and sent to pathology for analysis. A bone culture was obtained from the 3rd toe and a wound culture was obtained which was sent to microbiology. The remaining tissues were inspected and noted to be healthy and granular. The surgical site was copiously irrigated with sterile saline. The surgical site was packed with 1/4-inch plain packing. The incision was coapted and maintained using 3-0 nylon in a simple interrupted suture fashion. Following conclusion of the procedure, the surgical site incision was covered with Xeroform and a sterile compressive dressing was applied to the right foot consisting of sterile gauze, Kerlix, and Xavier wrap. Patient tolerated the procedure and anesthesia well without complications. He was transferred from the operating room to the recovery unit with vital signs stable and neurovasculature intact to the right foot. LIYAH [id number] cc: [facility]
--- NOTE | 2019-06-18 15:01 | PN ---
Physical Exam: SUBJECTIVE: Patient seen and examined OBJECTIVE: Vital Signs Period Temp Pulse Resp BP Sys/Lopez Pulse Ox Last 24 Hr 97.4 F-99.1 F 77-99 15-18 103-130/56-80 96-99 GENERAL: Awake, alert, and fully oriented, in no acute distress. HEAD: Normal with no signs of trauma. EYES: Pupils equal, round and reactive to light, extraocular movements intact, sclera anicteric, conjunctiva clear. No lid lag. EARS, NOSE, THROAT: Ears normal, nares patent, oropharynx clear without exudates. Moist mucous membranes. NECK: Normal range of motion, supple without lymphadenopathy, JVD, or masses. LUNGS: Breath sounds equal, clear to auscultation bilaterally. No wheezes, and no crackles. No accessory muscle use. HEART: Regular rate and rhythm, normal S1 and S2 without murmur, rub or gallop. ABDOMEN: Soft, nontender, not distended, normoactive bowel sounds, no guarding, no rebound, no masses. No hepatomegaly or splenomegaly. GENITOURINARY: Several palpable, tender lymph nodes on R, no testicular swelling or tenderness MUSCULOSKELETAL: Normal range of motion at all joints. No bony deformities or tenderness. No CVA tenderness. EXTREMITIES: 2+ pulses, warm, well-perfused, no edema. S/p R 1st & 2nd toe amputation in past. S/p R 3rd toe amputation x1 day ago. Dressing C/D/I. LUE AVF , no tenderness on palpation, regular bruit on auscultation NEUROLOGICAL: Cranial nerves II-XII intact. Normal speech. Normal gait. PSYCHIATRIC: Cooperative. Good eye contact. Appropriate mood and affect. SKIN: Warm, dry, normal turgor, no rashes or lesions noted, normal capillary refill. Laboratory Results - last 24 hr CBC, BMP 06/18/19 06:25 06/18/19 06:25 Active Medications Acetaminophen (Tylenol -) 650 mg PO Q4H PRN PRN Reason: FEVER Calcium Acetate (Phoslo -) 1,334 mg PO TIDCM [facility] Last Admin: 06/18/19 11:56 Dose: 1,334 mg Emtricitabine (Emtriva -) 200 mg PO Q96H [facility] Fentanyl (Sublimaze Injection -) 25 mcg IVPUSH [id number] PRN PRN Reason: PAIN-PACU ORDER X 4 DOSES ONLY Stop: 06/19/19 07:05 Heparin Sodium (Porcine) (Heparin -) 5,000 unit SQ TID [facility] Last Admin: 06/18/19 13:21 Dose: Not Given Ceftriaxone Sodium 2 gm/ (Dextrose) 100 mls @ 200 mls/hr IVPB DAILY [facility]; Protocol Last Admin: 06/18/19 09:08 Dose: 200 mls/hr Sodium Chloride (Normal Saline -) 1,000 mls @ 42 mls/hr IV ASDIR [facility] Last Admin: 06/18/19 07:27 Dose: Not Given Insulin Aspart (Novolog Vial Sliding Scale -) 1 vial SQ TIDAC [facility]; Protocol Last Admin: 06/18/19 11:02 Dose: 4 units Insulin Detemir (Levemir Vial) 25 units SQ HS [facility] Ondansetron HCl (Zofran Injection) 4 mg IVPUSH Q8H PRN PRN Reason: NAUSEA Sevelamer Carbonate (Renvela -) 800 mg PO TIDCM [facility] Last Admin: 06/18/19 11:57 Dose: 800 mg Tenofovir Disoproxil Fumarate (Viread -) 300 mg PO Q7D [facility] ASSESSMENT/PLAN: Patient is a 48 year old male with PMH of HIV, ESRD (on HD , , ), IDDM, HTN who presents with R groin pain for two days. #Osteomyelitis, s/p R 3rd toe amputation POD #1 POD #1 (Dr. Madrigal) Wound and bone cx pending MRI of RLE: osteomyelitis of 3rd R toe ID following (Dr. Rodney), cont 2gm ceftriaxone and 1gm vanc daily (Day 3) Tylenol prn for fevers and pain #Bacteremia 2/2 osteomyelitis R 3rd toe Pt had bloody, foul-smelling drainage from R 3rd toe overnight (R groin lymphadenopathy likely 2/2 wound) Blood cx positive for Strep Agalactiae Group B Wound cx positive for Strep Agalactiae Group B MRI of RLE: osteomyelitis of 3rd R toe Scrotal US small bilateral hydroceles with mild lymphadenopathy on Right. ID following (Dr. Rodney), cont 2gm ceftriaxone and 1gm vanc daily (Day 3) Tylenol prn for fevers and pain #ESRD Resume HD (, ) Nephrology, Dr. Kearney/Dr. Burns following Sevelamer 800mg TID Cont to monitor renal function Echo (06/16): normal LV and RV function, EF: 65%. Grade I diastolic dysfunction. Mild MR, mild TR, mild AR #HIV Cont YUNG therapy F/u viral studies ID following, recommendations appreciated #HTN Takes norvasc 5mg daily at home Hold for now, per nephrology #IDDM Uncontrolled, Hgb A1C 7.2 Pt receives 25 units HS lantus at home Start SSI during admission #DVT ppx Heparin TID #FEN No fluids, pt on HD Renal diet #Dispo Monitor on med-surg Visit type - Emergency Visit Emergency Visit: No - New Patient This patient is new to me today: No - Critical Care Critical Care patient: No ATTENDING PHYSICIAN STATEMENT I saw and evaluated the patient. I reviewed the resident's note and discussed the case with the resident. I agree with the resident's findings and plan as documented. SUBJECTIVE: OBJECTIVE: ASSESSMENT AND PLAN:
--- NOTE | 2019-06-18 15:42 | PN ---
Progress Note (short form) - Note Progress Note: Podiatry Evaluation: 48 year old diabetic, ESRD (,, ), HIV+ male s/p right foot 3rd digit amputation. States doing well adn no complaints. Per nurse has been up on the foot alot. PMHx: IDDM, HTN, ESRD on HD (, , ), HIV+ Meds: noted ALL: NKMA DEBORAH: R foot: pedal pulses posterior tibial artery 1/4, dorsalis pedis 2/4, TG wnl. Third digit amputation site with packing in place and pulled w/o complication, no purulence, no erythema, mild edema noted consisted w/ post op changes, no streaking, no signs of acute infection at this time. Imp: 48 year old diabetic male 1 day s/p right 3rd digit amp Evaluated and reviewed Iv abx Per ID Packing pulld w/o complication and wound flushed and redressed at bedside If planning for d/c tomorrow can have nurses change dressing with wet to dry DSD and RUPERT overlying prior to leaving is stable from pod standpoint for d/c planning. discussed with floor nurse for scheduling of outpatient wound care next week with Dr. Madrigal in [facility] [place] Patient understands as well upon d/c to keep dressing c/d/i to the foot will f/u while admitted and can f/u as outpatient once d/c.
--- NOTE | 2019-06-18 21:08 | PN ---
Progress Note, Physician History of Present Illness: S/P AMPUTATION R THIRD TOE NO C/O PAIN TEMPS DOWN AFEBRILE REPEAT BC (-) ECHO NO VEGETATIONS WOUND C/S, PATH PENDING - Current Medication List Current Medications: Active Medications Acetaminophen (Tylenol -) 650 mg PO Q4H PRN PRN Reason: FEVER Calcium Acetate (Phoslo -) 1,334 mg PO TIDCM [facility] Last Admin: 06/18/19 16:59 Dose: 1,334 mg Emtricitabine (Emtriva -) 200 mg PO Q96H JONNATHAN Fentanyl (Sublimaze Injection -) 25 mcg IVPUSH [id number] PRN PRN Reason: PAIN-PACU ORDER X 4 DOSES ONLY Stop: 06/19/19 07:05 Heparin Sodium (Porcine) (Heparin -) 5,000 unit SQ TID [facility] Last Admin: 06/18/19 13:21 Dose: Not Given Ceftriaxone Sodium 2 gm/ (Dextrose) 100 mls @ 200 mls/hr IVPB DAILY [facility]; Protocol Last Admin: 06/18/19 09:08 Dose: 200 mls/hr Sodium Chloride (Normal Saline -) 1,000 mls @ 42 mls/hr IV ASDIR [facility] Last Admin: 06/18/19 07:27 Dose: Not Given Insulin Aspart (Novolog Vial Sliding Scale -) 1 vial SQ TIDAC [facility]; Protocol Last Admin: 06/18/19 17:12 Dose: 2 units Insulin Detemir (Levemir Vial) 25 units SQ HS [facility] Ondansetron HCl (Zofran Injection) 4 mg IVPUSH Q8H PRN PRN Reason: NAUSEA Sevelamer Carbonate (Renvela -) 800 mg PO TIDCM [facility] Last Admin: 06/18/19 16:59 Dose: 800 mg Tenofovir Disoproxil Fumarate (Viread -) 300 mg PO Q7D [facility] - Objective Vital Signs: Vital Signs Temperature 98.7 F 06/18/19 19:37 Pulse Rate 95 H 06/18/19 19:37 Respiratory Rate 18 06/18/19 19:37 Blood Pressure 130/83 06/18/19 19:37 O2 Sat by Pulse Oximetry (%) 96 06/18/19 09:00 Constitutional: Yes: No Distress Eyes: Yes: Conjunctiva Clear Cardiovascular: Yes: Regular Rate and Rhythm, S1, S2 Respiratory: Yes: CTA Bilaterally Gastrointestinal: Yes: Normal Bowel Sounds, Soft Extremities: Yes: Other (DRESSING IN PLACE) Labs: CBC, BMP 06/18/19 06:25 06/18/19 06:25 Assessment/Plan GRP B STREP BACTEREMIA/ SEPSIS, LIKELY TOE SOURCE ESRD HIV+ REPEAT BC (-) CONTINUE CEFTRIAXONE AWAIT PATH REPORT CAN CONTINUE OUTPATIENT ANTIBIOTIC THERAPY AT HD
[2019-06-18] MEDS ORDERED: INSULIN (LEVEMIR) 100 UNITS/ML UNITS SQ SCH (22:00)
[2019-06-19] MEDS: HEPARIN NA (PORCINE) 5,000 UNITS/ML 1ML VIAL SQ SCH ×2 (06:10→15:46)
[2019-06-19] MEDS: INSULIN SLIDING SCALE (NOVOLOG) 1 VIAL SQ SCH ×3 (06:10→17:07)
[2019-06-19 07:18] LABS: HEMATOCRIT 32.6 % (35.4-49); MCH 32.3 pg (25.7-33.7); MCHC 33.9 g/dl (32.0-35.9); MEAN CELL VOLUME 95.2 fl (80-96); MEAN PLT VOLUME 7.3 fl (7.5-11.1); PLATELET COUNT 265 K/MM3 (134-434); RBC 3.42 M/mm3 (4.00-5.60); WHITE BLOOD COUNT 5.6 K/mm3 (4.0-10.0)
[2019-06-19] MEDS: SODIUM CHLORIDE 1,000 ML IV SCH (07:30)
[2019-06-19 07:46] LABS: BLOOD UREA NITROGEN 52.6 mg/dL (7-18); CALCIUM 9.8 mg/dL (8.5-10.1); MAGNESIUM 2.9 mg/dL (1.8-2.4); PHOSPHOROUS 6.3 mg/dL (2.5-4.9); POTASSIUM 5.3 mmol/L (3.5-5.1)
[2019-06-19 07:50] LABS: CREATININE 12.1 mg/dL (0.55-1.3)
[2019-06-19] MEDS ORDERED: SODIUM CHLORIDE 250 ML IV PRN (08:55)
[2019-06-19] MEDS ORDERED: DEXTROSE 5%-WATER 100 ML IVPB ONE (08:59)
[2019-06-19] MEDS: CEFTRIAXONE 2 GM in DEXTROSE 5%-WATER 100 ML IVPB SCH (09:06)
[2019-06-19] MEDS: SEVELAMER CARBONATE 800 MG TAB (FP) PO SCH ×3 (09:09→17:25)
[2019-06-19] MEDS: CALCIUM ACETATE 667 MG CAPSULE (FP) PO SCH ×3 (09:09→17:25)
[2019-06-19] MEDS ORDERED: CEFAZOLIN 2 GM/D5W 2 GM/50 ML ML IVPB ONE ×2 (13:01→15:00)
--- NOTE | 2019-06-19 13:01 | PN ---
Progress Note (short form) - Note Progress Note: Renal follow up for ESRD on HD Seen and examined during dialysis BP stable, goal UF is 2L. AVF working well pt offers no acute complaints Vital Signs Temperature 98.1 F 06/19/19 10:00 Pulse Rate 80 06/19/19 12:30 Respiratory Rate 18 06/19/19 12:30 Blood Pressure 142/89 06/19/19 12:30 O2 Sat by Pulse Oximetry (%) 98 06/19/19 08:33 Intake & Output 06/16/19 06/17/19 06/18/19 06/19/19 23:59 23:59 23:59 23:59 Intake Total 800 870 600 440 Output Total 1605 Balance 800 -735 600 440 Weight 67.273 kg 68.175 kg 67.495 kg 69.037 kg NAD awake and alert RRR CTA no LE edema CBC, BMP 06/19/19 06:05 06/19/19 06:05 Current Medications Acetaminophen (Tylenol -) 650 mg PO Q4H PRN PRN Reason: FEVER Calcium Acetate (Phoslo -) 1,334 mg PO TIDCM [facility] Last Admin: 06/19/19 09:09 Dose: 1,334 mg Emtricitabine (Emtriva -) 200 mg PO Q96H JONNATHAN Heparin Sodium (Porcine) (Heparin -) 5,000 unit SQ TID [facility] Last Admin: 06/19/19 06:10 Dose: Not Given Ceftriaxone Sodium 2 gm/ (Dextrose) 100 mls @ 200 mls/hr IVPB DAILY [facility]; Protocol Last Admin: 06/19/19 09:06 Dose: 200 mls/hr Sodium Chloride (Normal Saline -) 1,000 mls @ 42 mls/hr IV ASDIR [facility] Last Admin: 06/18/19 07:27 Dose: Not Given Sodium Chloride (Normal Saline -) 250 mls @ 3,000 mls/hr IV PRN PRN PRN Reason: Hypotension during Dialysis Stop: 06/20/19 08:55 Cefazolin Sodium 2 gm/ (Dextrose) 50 mls @ 100 mls/hr IVPB ONCE ONE Stop: 06/19/19 13:30 Insulin Aspart (Novolog Vial Sliding Scale -) 1 vial SQ TIDAC [facility]; Protocol Last Admin: 06/19/19 06:10 Dose: Not Given Insulin Detemir (Levemir Vial) 25 units SQ HS [facility] Last Admin: 06/18/19 22:19 Dose: 25 units Ondansetron HCl (Zofran Injection) 4 mg IVPUSH Q8H PRN PRN Reason: NAUSEA Sevelamer Carbonate (Renvela -) 800 mg PO TIDCM [facility] Last Admin: 06/19/19 09:09 Dose: 800 mg Tenofovir Disoproxil Fumarate (Viread -) 300 mg PO Q7D [facility] 48 year old male with pmhx of ESRD, HIV, DM, and HTN who presents with generalized malaise and lower ext discomfort. 1. Gram positive bacteremia 2. Sepsis 3. ESRD on HD 4. DM type 2 5. Hypertension tolerating dialysis well. Discussed case with Dr. Rodney. Will arrange for 4 additional weeks of Ancef with HD. stable for discharge from renal perspective Krzysztof Pearce DO
--- NOTE | 2019-06-19 14:41 | DS ---
Physical Exam: SUBJECTIVE: Patient seen and examined. No acute events overnight. OBJECTIVE: Vital Signs Period Temp Pulse Resp BP Sys/Lopez Pulse Ox Last 24 Hr 97.7 F-98.8 F 75-95 17-18 120-153/73-90 98-100 PHYSICAL EXAM GENERAL: Awake, alert, and fully oriented, in no acute distress. HEAD: Normal with no signs of trauma. EYES: Pupils equal, round and reactive to light, extraocular movements intact, sclera anicteric, conjunctiva clear. No lid lag. EARS, NOSE, THROAT: Ears normal, nares patent, oropharynx clear without exudates. Moist mucous membranes. NECK: Normal range of motion, supple without lymphadenopathy, JVD, or masses. LUNGS: Breath sounds equal, clear to auscultation bilaterally. No wheezes, and no crackles. No accessory muscle use. HEART: Regular rate and rhythm, normal S1 and S2 without murmur, rub or gallop. ABDOMEN: Soft, nontender, not distended, normoactive bowel sounds, no guarding, no rebound, no masses. No hepatomegaly or splenomegaly. GENITOURINARY: Several palpable, tender lymph nodes on R, no testicular swelling or tenderness MUSCULOSKELETAL: Normal range of motion at all joints. No bony deformities or tenderness. No CVA tenderness. EXTREMITIES: 2+ pulses, warm, well-perfused, no edema. S/p R 1st & 2nd toe amputation in past. S/p R 3rd toe amputation x1 day ago. Dressing C/D/I. LUE AVF , no tenderness on palpation, regular bruit on auscultation NEUROLOGICAL: Cranial nerves II-XII intact. Normal speech. Normal gait. PSYCHIATRIC: Cooperative. Good eye contact. Appropriate mood and affect. SKIN: Warm, dry, normal turgor, no rashes or lesions noted, normal capillary refill. LABS Laboratory Results - last 24 hr CBC, BMP 06/19/19 06:05 06/19/19 06:05 HOSPITAL COURSE: Date of Admission:06/14/19 Patient is a 48 year old male with PMH of HIV, ESRD (on HD , , ), IDDM, HTN who presented to the ED with R groin pain for two days. A ultrasound of his groin showed no intratesticular mass, normal arterial and venous waveforms, no varicocele, several enlarged lymph nodes on R. Pt was afebrile with no leukocytosis but blood cultures were positive for Strep Agalactiae Group B. On physical exam, he was found to have R 3rd toe ulcer with bloody, malodorous discharge. An MRI revealed osteomyelitis. Podiatry and wound care (Dr. Madrigal and Dr. England) were consulted and took the patient to the OR for amputation. Per ID, pt was started on IV ceftriaxone. Nephrology (Dr. Pearce) and ID (Dr. Rodney) discussed plan for patient to receive antibiotic treatment with HD for 4-[address] Madrigal and Dr. England discussed wound care with patient and he will follow up as outpatient. Pt's vitals are stable and he is clinically stable to be discharged home. MRI RLE: Osteomyelitis in R 3rd toe Scrotum US: no intratesticular mass, normal arterial and venous waveforms, no varicocele, several enlarged lymph nodes on R CTAP: no acute intra-abdominal pathology Date of Discharge: 06/19/19 Minutes to complete discharge: 45 Discharge Summary Problems reviewed: Yes Reason For Visit: FEVER WITH CHILLS, HIV DISEASE, END STAGE RENAL Current Active Problems Essential hypertension (Acute) Fever and chills (Acute) Open toe wound (Acute) Right groin pain (Acute) ESRD (end stage renal disease) on dialysis (Chronic) HIV disease (Chronic) Condition: Stable - Instructions Diet, Activity, Other Instructions: You were admitted to the hospital for an infection in your 3rd right toe. You had an amputation of your toe and were treated with IV antibiotics. You will continue to receive antibiotics during your hemodialysis for 4-6 weeks depending on the biopsy report. It is important that you follow up with the foot doctor, Dr. Madrigal for wound care and Infectious Disease doctor, Dr. Rodney, for further antibiotic management. Medications: - Cefazolin 2gm on Tuesdays and with dialysis, and 3g on Saturdays with dialysis for at least 4 weeks. - Resume all other home medications as prescribed. Follow-up: - Podiatry, Dr. Madrigal, next week to manage your wounds. We scheduled you with an appointment on 06/24/19 at 10:30am. - Infectious Disease, Dr. Rodney, in one week to follow up your biopsy results and further antibiotic management. - Nephrology, Dr. Rand, in one week. - Primary care provider in one week. Additional wound care instructions: - Change dressing with wet to dry sterile dressing and RUPERT bandage. - Keep dressing clean and dry and intact. Return to the emergency department if you experience fevers, chills, difficulty breathing, increased foot pain, or any other symptoms. Referrals: Cliff Rodney MD [Staff Physician] - Keshav Madrigal MD [Staff Physician] - 06/24/19 10:30 am Lissette Lai MD [Staff Physician] - Maki Rand MD [Staff Physician] - Disposition: VNS/HOME HEALTH CARE - Home Medications Comprehensive Discharge Medication List: Ambulatory Orders Calcium Acetate [Phoslo -] 1,334 mg PO TIDCM #90 capsule 07/16/14 Emtricitabine [Emtriva -] 200 mg PO Q96H 07/17/18 Rilpivirine HCl [Edurant] 25 mg PO DAILY 07/17/18 Tenofovir Disoproxil Fumarate [Viread -] 300 mg PO WEEKLY 07/17/18 Amlodipine Besylate 5 mg PO DAILY 06/16/19 Sevelamer HCl 800 mg PO TID 06/16/19 Insulin (Levemir) [Levemir Vial] 25 units SQ HS units 06/19/19 This patient is new to me today: No Emergency Visit: No Critical Care patient: No - Discharge Referral Referred to [facility] Med P.C.: No ATTENDING PHYSICIAN STATEMENT I saw and evaluated the patient. I reviewed the resident's note and discussed the case with the resident. I agree with the resident's findings and plan as documented. SUBJECTIVE: OBJECTIVE: ASSESSMENT AND PLAN:
[2019-06-19 14:50] VITALS: BP 152/89; PULSE 99; TEMP 98.5
[2019-06-19] MEDS: RILPIVIRINE HCL 25 MG TABLET PO SCH (15:45)
--- NOTE | 2019-06-19 16:58 | PN ---
Teaching Attending Note Name of Resident: Patty Melendez ATTENDING PHYSICIAN STATEMENT I saw and evaluated the patient. I reviewed the resident's note and discussed the case with the resident. I agree with the resident's findings and plan as documented. SUBJECTIVE: Feels well post-op with mild foot discomfort. No further fevers. OBJECTIVE: Fever resolved, Hemodynamically Stable Last Vital Signs Temp Pulse Resp BP Pulse Ox 98.5 F 99 H 18 152/89 98 06/19/19 14:49 06/19/19 14:49 06/19/19 14:49 06/19/19 14:49 06/19/19 08:33 Heart - S1, S2, RRR Lungs - clear to auscultation. Abdomen - Soft, non-tender. Bowel Sounds normal. R inguinal tender lymphadenopathy improving Extremities - no edema, no calf tenderness. R foot dressed post-peratively. Exam 06/17 - s/p R 1/2 toe amputation. R 3rd toe ulcer with bloody-purulent malodrous discharge without surrounding cellulitis/tenderness. LUE AVF. Laboratory Results - last 24 hr 06/18/19 06/18/19 06/19/19 16:57 21:44 06:05 WBC 5.6 RBC 3.42 L Hgb 11.0 L Hct 32.6 L MCV 95.2 MCH 32.3 MCHC 33.9 RDW 16.0 H Plt Count 265 MPV 7.3 L Sodium Potassium Chloride Carbon Dioxide Anion Gap BUN Creatinine Est GFR (CKD-EPI)AfAm Est GFR (CKD-EPI)NonAf POC Glucometer 178 185 Random Glucose Calcium Phosphorus Magnesium Vancomycin Pre-Dose 06/19/19 06/19/19 06/19/19 06:05 06:09 09:40 WBC RBC Hgb Hct MCV MCH MCHC RDW Plt Count MPV Sodium 139 Potassium 5.3 H Chloride 98 Carbon Dioxide 31 Anion Gap 10 BUN 52.6 H Creatinine 12.1 H* Est GFR (CKD-EPI)AfAm 5.08 Est GFR (CKD-EPI)NonAf 4.38 POC Glucometer 104 Random Glucose 94 Calcium 9.8 Phosphorus 6.3 H Magnesium 2.9 H Vancomycin Pre-Dose 9.8 L Current Medications Generic Name Dose Route Start Last Admin Trade Name Freq PRN Reason Stop Dose Admin Acetaminophen 650 mg 06/18/19 07:06 Tylenol - PO Q4H PRN FEVER Calcium Acetate 1,334 mg 06/18/19 08:00 06/19/19 15:45 Phoslo - PO Not Given TIDCM [facility] Emtricitabine 200 mg 06/21/19 10:00 Emtriva - PO Q96H [facility] Heparin Sodium (Porcine) 5,000 unit 06/18/19 14:00 06/19/19 15:46 Heparin - SQ 5,000 unit TID [facility] Administration Ceftriaxone Sodium 2 gm/ 100 mls @ 200 mls/hr 06/18/19 10:00 06/19/19 09:06 Dextrose IVPB 200 mls/hr DAILY [facility] Administration Protocol Sodium Chloride 1,000 mls @ 42 mls/hr 06/18/19 07:06 06/19/19 07:30 Normal Saline - IV 42 mls/hr ASDIR JONNATHAN Administration Sodium Chloride 250 mls @ 3,000 mls/hr 06/19/19 08:55 Normal Saline - IV 06/20/19 08:55 PRN PRN Hypotension during Dialysis Cefazolin Sodium/Dextrose 2 gm in 50 mls @ 100 mls/hr 06/19/19 15:00 Ancef 2 Gm Premixed Ivpb - IVPB 06/19/19 15:29 ONCE ONE Insulin Aspart 1 vial 06/18/19 11:00 06/19/19 15:45 Novolog Vial Sliding Scale - SQ Not Given TIDAC [facility] Protocol Insulin Detemir 25 units 06/18/19 22:00 06/18/19 22:19 Levemir Vial SQ 25 units HS [facility] Administration Ondansetron HCl 4 mg 06/18/19 07:06 Zofran Injection IVPUSH Q8H PRN NAUSEA Sevelamer Carbonate 800 mg 06/18/19 08:00 06/19/19 15:46 Renvela - PO Not Given TIDCM [facility] Tenofovir Disoproxil Fumarate 300 mg 06/24/19 10:00 Viread - PO Q7D [facility] Home Medications Medication Instructions Recorded Calcium Acetate [Phoslo -] 1,334 mg PO TIDCM #90 capsule 07/16/14 Emtricitabine [Emtriva -] 200 mg PO Q96H 07/17/18 Rilpivirine HCl [Edurant] 25 mg PO DAILY 07/17/18 Tenofovir Disoproxil Fumarate 300 mg PO WEEKLY 07/17/18 [Viread -] Amlodipine Besylate 5 mg PO DAILY 06/16/19 Sevelamer HCl 800 mg PO TID 06/16/19 Insulin (Levemir) [Levemir Vial] 25 units SQ HS units 06/19/19 ASSESSMENT/PLAN: 48 year old male with history of HIV (on HAART), ESRD (HD TTS via LUE AVF), DM 2 , HTN, presents with R groin pain and fever/chills for two days. Scrotal US - small bilateral hydroceles, mildly enlarged LNs on R CT A/P shows no intra-abdominal source. No lymphadenoapthy seen. 1. Sepsis secondary to Gram positive Bacteremia, secondary to R 3rd toe infected ulcer/osteomyelitis POD 2 s/p amputation R 3rd toe MRI R foot - confirmed osteomyelitis. Blood/wound/Surgical Cx pos for Strep agalactae Echo - Grade I diastolic dysfunction. Zosyn, Vancomycin switched to IV ceftriaxone by ID Wound care/Vascular consult appreciated - for visiting nurse for dressings and wound care clinic follow up with Podiatry arranged 06/24/19. Dressing instructions as per Podiatry. To continue IV ceftriaxone on HD on discharge -for 4 weeks as per ID. Nephrology on-board. Follow up Podiatry, ID, Nephrology. 2. HIV on HAART ID following 3. ESRD on HD via LUE AVF TTS Nephrology consulted - Stable. For HD today prior to discharge. 4. HTN - Norvasc resumed. 5. DM 2 - Continue Levemir/Novolog sliding scale. Medically Stable for discharge.
--- NOTE | 2019-06-19 21:47 | PN ---
Progress Note, Physician - Objective Vital Signs: Vital Signs Temperature 98.5 F 06/19/19 14:49 Pulse Rate 99 H 06/19/19 14:49 Respiratory Rate 18 06/19/19 14:49 Blood Pressure 152/89 06/19/19 14:49 O2 Sat by Pulse Oximetry (%) 98 06/19/19 08:33 Labs: CBC, BMP 06/19/19 06:05 06/19/19 06:05
--- NOTE | 2019-06-20 18:03 | PATH ---
Surgical Pathology Report Patient Name: CUBA CIFUENTES Med. Rec. #: [id number] /Age/Gender: 1970 (Age: 48) / M Account: [id number] Location: [facility] MED/SURG Taken: 06/17/2019 Received: 06/18/2019 Reported: 06/20/2019 Physicians: Keshav Madrigal DPM Specimen(s) Received A: THIRD TOE, ABSCESS, RIGHT B: THIRD TOE, FOOT, RIGHT Clinical History Osteomyelitis right third toe Final Diagnosis A. THIRD TOE, ABSCESS, RIGHT, EXCISION: SKIN AND UNDERLYING SUBCUTANEOUS TISSUE WITH MARKED ACUTE INFLAMMATION AND NECROSIS. B. THIRD TOE, FOOT, RIGHT, AMPUTATION: DIGIT WITH MARKED ACUTE INFLAMMATION, GANGRENOUS NECROSIS, AND ACUTE OSTEOMYELITIS, EXTENDING TO BONE AND SOFT TISSUE MARGINS. Electronically Signed Debbie Ndiaye M.D. Gross Description A. Received in formalin labeled "abscess right third toe," is a 1.4 x 0.8 x 0.6 cm velásquez brown, unoriented portion of skin with underlying soft tissue. The specimen is serially sectioned and entirely submitted in one cassette. B. Received in formalin labeled "third toe right foot," is a 2.8 x 2.0 x 1.8 cm toe amputation. The skin and soft tissue is received separately from the bone. The epidermal surface displays a gangrenous lesion involving the skin and soft tissue margin. The separately received bone is brown and markedly softened at one end. Circuits Engineer sections are submitted in 4 cassettes as follows: 1-skin lesion with underlying soft tissue; 2-skin and soft tissue margin; 3-softened end of bone, following decalcification; 4-opposing bone margin, following decalcification. /06/18/2019 saudi06/18/2019
[2019-06-21] MEDS ORDERED: EMTRICITABINE 200 MG CAPSULE PO SCH (10:00)
[2019-06-24] MEDS ORDERED: TENOFOVIR DISOPROXIL FUMARATE 300 MG TABLET PO SCH (10:00)
== END 2019-06-19 18:02 | disposition home or self-care (01) | DRG 853 ==
LOC: JER 17:38 → J7W 19:57
PROVIDERS: ADMIT Internal Medicine
PROC: 0Y6T0Z2 Detachment at Right 3rd Toe, Mid, Open Approach (ICD-10-PCS; principal; 2019-06-17 13:00)
PROC: 5A1D70Z Performance of Urinary Filtration, Intermittent, Less than 6 Hours Per Day (ICD-10-PCS; 2019-06-19)
DX: A40.9 Streptococcal sepsis, unspecified (principal); N18.6 End stage renal disease; I12.0 Hypertensive chronic kidney disease with stage 5 chronic kidney disease or end stage renal disease; M86.171 Other acute osteomyelitis, right ankle and foot; L97.518 Non-pressure chronic ulcer of other part of right foot with other specified severity; Z21 Asymptomatic human immunodeficiency virus [HIV] infection status; E11.69 Type 2 diabetes mellitus with other specified complication; Z99.2 Dependence on renal dialysis; E11.621 Type 2 diabetes mellitus with foot ulcer; E11.65 Type 2 diabetes mellitus with hyperglycemia; R59.0 Localized enlarged lymph nodes; R00.0 Tachycardia, unspecified
CPT/HCPCS: 36415; 71046-TC-FY; 73721-RT-TC; 74176-TC; 76870-TC; 80048; 80053; 82565; 82962; 83036; 83735; 84100; 84520; 85025; 85027; 86359; 86360; 86803; 87040; 87070; 87075; 87077; 87186; 87205; 87340; 88304-TC; 88305-TC; 88311-TC; 90670; 93005; 93010; 93306-TC; 94760; 97116-GP; 97161-GP; 99283-25; G0480; J1644; J7030; Q9967

== ENCOUNTER 2019-08-30 11:06 | Inpatient (IN) | payer BC ==
--- NOTE | 2019-08-30 12:04 | PDOC ---
History of Present Illness - General Chief Complaint: Nausea/Vomiting Stated Complaint: vomiting Time Seen by Provider: 08/30/19 11:46 - History of Present Illness Initial Comments: 08/30/19 12:14 The patient is a 49 year old male with a history of HTN, DM, ESRD on dialysis ( ,,Sun) who presents for evaluation of cough, fever, body ache, nausea and vomiting. The patient reports a 1-2 day history of fever with associated non- productive cough, body aches and several episodes of non-bilious, non-bloody vomiting prompting his presentation to the ED for further evaluation after completing dialysis today. He notes a sick contact at his work prior to the onset of his symptoms. He otherwise denies nasal congestion, chest pain, SOB, abdominal pain, or changes with urination or bowel movements. Past History - Past Medical History Allergies/Adverse Reactions: Allergies Allergy/AdvReac Type Severity Reaction Status Date / Time No Known Drug Allergies Allergy Verified 06/14/19 17:43 Home Medications: Ambulatory Orders Calcium Acetate [Phoslo -] 1,334 mg PO TIDCM #90 capsule 07/16/14 Emtricitabine [Emtriva -] 200 mg PO Q96H 07/17/18 Rilpivirine HCl [Edurant] 25 mg PO DAILY 07/17/18 Tenofovir Disoproxil Fumarate [Viread -] 300 mg PO WEEKLY 07/17/18 Amlodipine Besylate 5 mg PO DAILY 06/16/19 Sevelamer HCl 800 mg PO TID 06/16/19 Insulin (Levemir) [Levemir Vial] 25 units SQ HS units 06/19/19 Anemia: Yes Asthma: No Cancer: No Cardiac Disorders: No CVA: No COPD: No CHF: No Dementia: No Diabetes: Yes GI Disorders: No Disorders: Yes (RENAL FAILURE ) HTN: Yes Hypercholesterolemia: No Kidney Stones: Yes (ESRD) Liver Disease: No Seizures: No Thyroid Disease: No - Surgical History Abdominal Surgery: No Appendectomy: No Cardiac Surgery: No Cholecystectomy: No Lung Surgery: No Neurologic Surgery: No Orthopedic Surgery: No - Immunization History Td Vaccination: Yes Immunization Up to Date: No - Psycho Social/Smoking Cessation Hx Smoking Status: No Smoking History: Never smoked Have you smoked in the past 12 months: No Number of Cigarettes Smoked Daily: 10 Information on smoking cessation initiated: No Hx Alcohol Use: No Drug/Substance Use Hx: No Substance Use Type: None Hx Substance Use Treatment: No Review of Systems - Review of Systems Comments:: 08/30/19 12:22 Constitutional: Fevers, chills, fatigue, malaise HEENT: No Rhinorrhea, nasal congestion, visual changes Cardiovascular: No chest pain, syncope, palpitations, lightheadedness Respiratory: Cough. No SOB, Hemoptysis, Gastrointestinal: Nausea, vomiting. No Abdominal pain, Constipation, Diarrhea, Melena Genitourinary: No Dysuria, Frequency, Urgency, Hesitancy, Hematuria, Flank pain Musculoskeletal: No Myalgia, arthralgia Skin: No rashes, itching, bruising, pallor Neurologic: No Headache, Dizziness, Numbness, Weakness, or Tingling Psychiatric: No Hallucinations. No SI or HI *Physical Exam - Vital Signs Last Vital Signs Temp Pulse Resp BP Pulse Ox 100.3 F H 105 H 16 136/95 98 08/30/19 11:15 08/30/19 11:15 08/30/19 11:15 08/30/19 11:15 08/30/19 11:15 - Physical Exam 08/30/19 12:22 General Appearance: Nourished. No Apparent Distress HEENT: EOMI, ELVIRA. Mild Pharyngeal Erythema, No Tonsillar Exudate, Tonsillar Erythema Neck: No Cervical Lymphadenopathy Respiratory/Chest: Lungs Clear, Normal Breath Sounds. No Crackles, Rales, Rhonchi, Wheezing Cardiovascular: Regular Rhythm, Regular Rate. Continuous murmur noted on exam. No Gallops, Rubs Gastrointestinal/Abdominal: Normal Bowel Sounds, Soft. No Guarding, Rebound, Tenderness Musculoskeletal: No CVA Tenderness Extremity: Normal Capillary Refill Integumentary: Normal Color, Dry, Warm Neurologic: Fully Oriented, Alert, Normal Mood/Affect, Normal Response, ED Treatment Course - LABORATORY CBC & Chemistry Diagram: 08/30/19 12:42 08/30/19 12:42 Medical Decision Making - Medical Decision Making 08/30/19 12:23 The patient is a 49 year old male with a history of HTN, DM, ESRD on dialysis (T ,TH,Sat) who presents for evaluation of cough, fever, body ache, nausea and vomiting. Given the patient's history and physical exam, we will obtain a cbc, cmp, troponin, coags, blood cultures, chest plain film, influenza swab to evaluate further. We will treat with tylenol and continue to monitor and reassess while here in the ED. 08/30/19 15:19 CBc, cmp, troponin were unremarkable. Chest plain film did not demonstrate any acute pathology as read by our radiologist. Influenza swab was negative. Given the patient's HIV status in the setting of ESRD and fever of unknown origin, the patient will require admission for further monitoring and management. Given the patient's heart murmur, there is a concern for endocarditis as well. We will treat with vanc and zosyn here in the ED. We discussed the case with the admitting team who accepted the patient for admission. Discharge - Discharge Information Problems reviewed: Yes Clinical Impression/Diagnosis: Fever and chills, Murmur, heart, HIV disease Condition: Stable - Admission Yes - Follow up/Referral Referrals: ON STAFF,NOT [Primary Care Provider] - - Patient Discharge Instructions - Post Discharge Activity
[2019-08-30] MEDS ORDERED: ONDANSETRON 4 MG/2 ML VIAL IVPUSH ONE (12:05)
[2019-08-30] MEDS ORDERED: ACETAMINOPHEN 1000 MG/100 ML VIAL (NON FORMULARY) IVPB ONE (12:05)
[2019-08-30] MEDS ORDERED: ONDANSETRON 4 MG/2 ML VIAL ONE (12:14)
[2019-08-30] MEDS ORDERED: ACETAMINOPHEN INJECTION 100 ML IVPB ONE (12:14)
[2019-08-30 13:14] LABS: BASO % 0.8 % (0-2.0); HEMATOCRIT 34.2 % (35.4-49); HEMOGLOBIN 11.8 GM/dL (11.7-16.9); LYMPH % 15.7 % (8-40); MCH 32.4 pg (25.7-33.7); MCHC 34.3 g/dl (32.0-35.9); MEAN CELL VOLUME 94.3 fl (80-96); MEAN PLT VOLUME 7.4 fl (7.5-11.1); MONO % 9.4 % (3.8-10.2); NEUT % 73.1 % (42.8-82.8); PLATELET COUNT 156 K/MM3 (134-434); RBC 3.63 M/mm3 (4.00-5.60); RDW 14.5 % (11.9-15.9); WHITE BLOOD COUNT 4.5 K/mm3 (4.0-10.0)
[2019-08-30 13:19] LABS: INR 1.06 (0.83-1.09); PROTHROMBIN TIME (PATIENT) 12.5 SEC (9.7-13.0)
[2019-08-30 13:22] LABS: ACTIVATED PTT 37.9 SECONDS (25.2-36.5)
[2019-08-30 13:44] LABS: ALBUMIN 3.8 g/dl (3.4-5.0); BILIRUBIN,TOTAL 0.5 mg/dL (0.2-1); CALCIUM 9.1 mg/dL (8.5-10.1); CREATININE 6.5 mg/dL (0.55-1.3); POTASSIUM 3.4 mmol/L (3.5-5.1); TOT PROT 7.2 g/dl (6.4-8.2)
--- NOTE | 2019-08-30 14:48 | PDOC ---
Documentation entered by Marycruz Marino SCRIBE, acting as scribe for Rebeca Cottrell MD. Rebeca Cottrell MD: This documentation has been prepared by the Jamila agustin Xhesika, SCRIBE, under my direction and personally reviewed by me in its entirety. I confirm that the documentation accurately reflects all work, treatment, procedures, and medical decision making performed by me. Attending Attestation - Resident Resident Name: Rick Bolden - HPI HPI: 08/30/19 12:14 The patient is a 49 year old male with a significant PMH of ESRD on HD (T, Th, S) HTN, and IDDM who presents to the emergency department for 1 day of fever, cough and body aches. The patient states he endorsed 1 episode of nbnb vomiting today in the parking lot. Pt states he had a complete dialysis prior to his arrival to the ED. The patient denies chest pain, shortness of breath, headache and dizziness. Denies chills, nausea, diarrhea and constipation. Denies dysuria, frequency, urgency and hematuria. Allergies: NKDA PCP: Dr. Lai Renal: Dr. Maki trujillo + Dr. Pearce - Physicial Exam PE: 08/30/19 12:14 GENERAL: Awake, alert, and fully oriented, in no acute distress. +febrile NECK: Normal ROM, supple, no lymphadenopathy, JVD, or masses LUNGS: Breath sounds equal, clear to auscultation bilaterally. No wheezes, and no crackles HEART: +continuous machine like murmur. No rubs or gallops ABDOMEN: Soft, nontender, normoactive bowel sounds. No guarding, no rebound. No masses EXTREMITIES: Normal range of motion, no edema. No clubbing or cyanosis. No cords, erythema, or tenderness NEUROLOGICAL: Cranial nerves II through XII grossly intact. SKIN: Warm, Dry, normal turgor, no rashes or lesions noted. - Medical Decision Making 08/30/19 13:58 Pt presents to the ED complaining of fever since yesterday accompanied by non productive cough. Febrile in the ED. Apparently new murmur. Given history of ESRD and HIV, will admit for serial blood cx and sepsis work up. 08/30/19 14:40 08/30/19 14:43
[2019-08-30] MEDS: PIPERACILLIN/TAZOB 3.375 GM 3.375 GM in DEXTROSE 5%-WATER - 50 ML IVPB ONE ×2 (15:30→16:10)
[2019-08-30] MEDS: VANCOMYCIN 1,000 MG in DEXTROSE 5%-WATER - 250 ML IVPB ONE ×2 (15:31→17:13)
[2019-08-30] MEDS ORDERED: PIPERACILLIN/TAZOB 3.375 GM 3.375 GM in DEXTROSE 5%-WATER - 50 ML IVPB ONE (15:55)
[2019-08-30] MEDS ORDERED: PIPERACILLIN/TAZOB 3.375 GM 3.375 GM/50 ML BAG IVPB ONE (15:57)
[2019-08-30 16:44] VITALS: BMI 23.2
--- NOTE | 2019-08-30 18:08 | HP ---
CHIEF COMPLAINT: Cough fever body aches and chills for 1 day PCP: Dr. Garcia HISTORY OF PRESENT ILLNESS:The patient is a 49 year old male with a history of HTN, DM, ESRD on dialysis (,,Sun) who presents for evaluation of cough, fever , body ache, nausea and vomiting. The patient reports a 1-2 day history of fever with associated non-productive cough, body aches and several episodes of non-bilious, non-bloody vomiting prompting his presentation to the ED for further evaluation after completing dialysis today. He notes a sick contact at his work prior to the onset of his symptoms. He otherwise denies nasal congestion, chest pain, SOB, abdominal pain, or changes with urination or bowel movements. He said it all started after he met somebody who had flulike symptom and the symptoms started after that. He told the people at the dialysis place right after he finishes dialysis. So he has finished his dialysis complete treatment today. ER course was notable for: (1)cough (2)fever (3)thrill on his arm Recent Travel:none PAST MEDICAL HISTORY:HTN, DM, ESRD on dialysis (,,Sun) PAST SURGICAL HISTORY:a-v johny Social History: Smoking: Alcohol: Drugs: Allergies No Known Drug Allergies Allergy (Verified 06/14/19 17:43) HOME MEDICATIONS: Home Medications Medication Instructions Recorded Calcium Acetate [Phoslo -] 1,334 mg PO TIDCM #90 capsule 07/16/14 Emtricitabine [Emtriva -] 200 mg PO Q96H 07/17/18 Rilpivirine HCl [Edurant] 25 mg PO DAILY 07/17/18 Tenofovir Disoproxil Fumarate 300 mg PO WEEKLY 07/17/18 [Viread -] Amlodipine Besylate 5 mg PO DAILY 06/16/19 Sevelamer HCl 800 mg PO TID 06/16/19 Insulin (Levemir) [Levemir Vial] 25 units SQ HS units 06/19/19 REVIEW OF SYSTEMS CONSTITUTIONAL: Present fever, chills, HEENT: Absent: rhinorrhea, nasal congestion, throat pain, throat swelling, difficulty swallowing, mouth swelling, ear pain, eye pain, visual changes CARDIOVASCULAR: Absent: chest pain, syncope, palpitations, irregular heart rate, lightheadedness , peripheral edema RESPIRATORY: Present cough, absent shortness of breath, dyspnea with exertion, orthopnea, wheezing, stridor, hemoptysis GASTROINTESTINAL: Absent: abdominal pain, abdominal distension, nausea, vomiting, diarrhea, constipation, melena, hematochezia GENITOURINARY: Absent: dysuria, frequency, urgency, hesitancy, hematuria, flank pain, genital pain MUSCULOSKELETAL: Absent: myalgia, arthralgia, joint swelling, back pain, neck pain SKIN: Absent: rash, itching, pallor HEMATOLOGIC/IMMUNOLOGIC: Absent: easy bleeding, easy bruising, lymphadenopathy, frequent infections ENDOCRINE: Absent: unexplained weight gain, unexplained weight loss, heat intolerance, cold intolerance NEUROLOGIC: Absent: headache, focal weakness or paresthesias, dizziness, unsteady gait, seizure, mental status changes, bladder or bowel incontinence PSYCHIATRIC: Absent: anxiety, depression, suicidal or homicidal ideation, hallucinations. PHYSICAL EXAMINATION Vital Signs - 24 hr 08/30/19 08/30/19 08/30/19 11:15 13:51 16:16 Temperature 100.3 F H 99.3 F Pulse Rate 105 H Pulse Rate [ 89 Apical] Respiratory 16 22 H Rate Blood Pressure 136/95 Blood Pressure 114/81 [Right Arm] O2 Sat by Pulse 98 99 100 Oximetry (%) 08/30/19 16:44 Temperature 98.9 F Pulse Rate Pulse Rate [ Apical] Respiratory 95 H Rate Blood Pressure 120/50 L Blood Pressure [Right Arm] O2 Sat by Pulse Oximetry (%) Patient is comfortable HEENT normal Neck supple no JVD Lungs clear no wheezing Abdomen nontender no organomegaly bowel sounds normal Extremities no edema no cyanosis normal pulses Neurologically he is alert awake oriented, nonfocal Skin no rash noted Heart examination shows he has S1-S2 normal there is no murmur noted but we see some thrill activity which is coming from his left arm AV graft and is once his arm moved away from the chest the sound disappears but being the fact that he has a fever and is on dialysis will do an echocardiogram to rule out any endocarditis. Laboratory Results - last 24 hr 08/30/19 08/30/19 08/30/19 11:50 12:42 12:42 WBC 4.5 RBC 3.63 L Hgb 11.8 Hct 34.2 L MCV 94.3 MCH 32.4 MCHC 34.3 RDW 14.5 Plt Count 156 D MPV 7.4 L Absolute Neuts (auto) 3.3 Neutrophils % 73.1 D Lymphocytes % 15.7 D Monocytes % 9.4 Eosinophils % 1.0 Basophils % 0.8 Nucleated RBC % 0 PT with INR INR PTT (Actin FS) Sodium 135 L Potassium 3.4 L Chloride 100 Carbon Dioxide 27 Anion Gap 8 BUN 20.0 H Creatinine 6.5 H Est GFR (CKD-EPI)AfAm 10.68 Est GFR (CKD-EPI)NonAf 9.22 Random Glucose 127 H Lactic Acid Calcium 9.1 Total Bilirubin 0.5 AST 42 H ALT 22 Alkaline Phosphatase 86 Troponin I 0.03 Total Protein 7.2 Albumin 3.8 Influenza A (Rapid) Negative Influenza B (Rapid) Negative 08/30/19 08/30/19 12:42 12:42 WBC RBC Hgb Hct MCV MCH MCHC RDW Plt Count MPV Absolute Neuts (auto) Neutrophils % Lymphocytes % Monocytes % Eosinophils % Basophils % Nucleated RBC % PT with INR 12.50 INR 1.06 PTT (Actin FS) 37.9 H Sodium Potassium Chloride Carbon Dioxide Anion Gap BUN Creatinine Est GFR (CKD-EPI)AfAm Est GFR (CKD-EPI)NonAf Random Glucose Lactic Acid 1.0 Calcium Total Bilirubin AST ALT Alkaline Phosphatase Troponin I Total Protein Albumin Influenza A (Rapid) Influenza B (Rapid) His chest x-ray showed clear lungs normal mediastinum sharp angles no pneumonia or acute process is seen and this x-ray was compared on to the old x-ray which was done on June 14, 2019 ASSESSMENT/PLAN: 41 years old male with history of hypertension diabetes on dialysis came with fever cough body aches nausea for 1 day his chest x-ray is clear so being the fact he has a murmur on his heart examination and afebrile and on dialysis. We will get an echocardiogram 1 dose of IV vancomycin ID consult Start his medication for hypertension and his HIV No need for any other medicine for him at this time. Blood cultures if anything grew we manage accordingly. No need for DVT prophylaxis because he is ambulatory. Visit type - Emergency Visit Emergency Visit: Yes ED Registration Date: 08/30/19 Care time: The patient presented to the Emergency Department on the above date and was hospitalized for further evaluation of their emergent condition. - New Patient This patient is new to me today: Yes Date on this admission: 08/30/19 - Critical Care Critical Care patient: No
--- NOTE | 2019-08-30 18:27 | CONSULT ---
Consult Consult Specialty:: Nephrology Reason for Consultation:: ESRD - History of Present Illness Chief Complaint: fever and body aches History of Present Illness: Pt is a 49 year old male with pmhx of esrd, htn, hiv and dm who presents to the er with fever, cough and body aches. He was lasi dialyzed today. He has a left arm fistula. He complains of generalized malaise. He was recently in the hospital and discharged on 4 weeks of ancef. He denies nausea or vomiting. He denies chest pain. He denies sick contacts. - History Source History Provided By: Patient, Medical Record - Past Medical History Cardio/Vascular: Yes: HTN Renal/: Yes: Renal Failure, Hemodialysis Infectious Disease: Yes: HIV Endocrine: Yes: Diabetes Mellitus - Alcohol/Substance Use Hx Alcohol Use: No - Smoking History Smoking history: Former smoker Have you smoked in the past 12 months: No Aproximately how many cigarettes per day: 10 - Social History Usual Living Arrangement: With Parent ADL: Independent History of Recent Travel: No Home Medications - Allergies Allergies/Adverse Reactions: Allergies Allergy/AdvReac Type Severity Reaction Status Date / Time No Known Drug Allergies Allergy Verified 06/14/19 17:43 - Home Medications Home Medications: Ambulatory Orders Calcium Acetate [Phoslo -] 1,334 mg PO TIDCM #90 capsule 07/16/14 Emtricitabine [Emtriva -] 200 mg PO Q96H 07/17/18 Rilpivirine HCl [Edurant] 25 mg PO DAILY 07/17/18 Tenofovir Disoproxil Fumarate [Viread -] 300 mg PO WEEKLY 07/17/18 Amlodipine Besylate 5 mg PO DAILY 06/16/19 Sevelamer HCl 800 mg PO TID 06/16/19 Insulin (Levemir) [Levemir Vial] 25 units SQ HS units 06/19/19 Family Medical History Family History: Denies Review of Systems - Review of Systems Constitutional: reports: Chills, Fever, Malaise HENT: reports: No Symptoms Neck: reports: No Symptoms Cardiovascular: reports: No Symptoms Respiratory: reports: Cough Genitourinary: reports: No Symptoms Musculoskeletal: reports: No Symptoms Integumentary: reports: No Symptoms Neurological: reports: No Symptoms Endocrine: reports: No Symptoms Hematology/Lymphatic: reports: No Symptoms Psychiatric: reports: No Symptoms Physical Exam Vital Signs: Vital Signs Temperature 98.9 F 08/30/19 16:44 Pulse Rate 89 08/30/19 16:16 Respiratory Rate 95 H 08/30/19 16:44 Blood Pressure 120/50 L 08/30/19 16:44 O2 Sat by Pulse Oximetry (%) 100 08/30/19 16:16 Constitutional: Yes: Calm Eyes: Yes: Conjunctiva Clear HENT: Yes: Atraumatic Neck: Yes: Supple Cardiovascular: Yes: Murmur, S1, S2 Respiratory: Yes: CTA Bilaterally Gastrointestinal: Yes: Soft Renal/: Yes: WNL Musculoskeletal: Yes: WNL Edema: No Neurological: Yes: Oriented Psychiatric: Yes: Oriented Labs: CBC, BMP 08/30/19 12:42 08/30/19 12:42 Imaging - Results Chest X-ray: Report Reviewed Problem List - Problems (1) Fever and chills Code(s): R50.9 - FEVER, UNSPECIFIED (2) HIV disease Code(s): B20 - HUMAN IMMUNODEFICIENCY VIRUS [HIV] DISEASE (3) ESRD (end stage renal disease) on dialysis Code(s): N18.6 - END STAGE RENAL DISEASE; Z99.2 - DEPENDENCE ON RENAL DIALYSIS Assessment/Plan Current Medications Generic Name Dose Route Start Last Admin Trade Name Freq PRN Reason Stop Dose Admin Amlodipine Besylate 5 mg 08/31/19 10:00 Norvasc - PO DAILY [facility] Calcium Acetate 1,334 mg 08/31/19 08:00 Phoslo - PO TIDCM JONNATHAN Emtricitabine 200 mg 08/30/19 18:15 Emtriva - PO Q96H [facility] Insulin Aspart 0 units 08/30/19 22:00 Novolog Vial SQ ACHS [facility] Protocol Insulin Detemir 25 units 08/30/19 22:00 Levemir Vial SQ HS JONNATHAN Sevelamer Carbonate 800 mg 08/30/19 18:30 Renvela - PO TIDCM JONNATHAN Tenofovir Disoproxil Fumarate 300 mg 08/30/19 18:15 Viread - PO WEEKLY JONNATHAN Impression 1. esrd 2. hx htn 3. dm 4. hiv 5. dm 6. fever and chills Plan - pt had HD this morning - renal diet - send cultures - ID eval - check echo - monitor bp - discussed with ER
[2019-08-30] MEDS: SEVELAMER CARBONATE 800 MG TAB (FP) PO SCH (19:03)
[2019-08-30] MEDS: INSULIN (LEVEMIR) 100 UNITS/ML UNITS SQ SCH (21:32)
[2019-08-30] MEDS: INSULIN SLIDING SCALE (NOVOLOG) 1 VIAL SQ SCH (21:35)
[2019-08-30] MEDS ORDERED: INSULIN (NOVOLOG) ASPART 100 UNITS/ML 10ML VIAL SQ SCH (22:00)
[2019-08-31] MEDS ORDERED: ACETAMINOPHEN 325 MG TABLET (FP) PO PRN (03:48)
[2019-08-31] MEDS ORDERED: PT OWN MED DRAWER 7, Y5N ONE ×2 (08:42→13:56)
[2019-08-31] MEDS: CALCIUM ACETATE 667 MG CAPSULE (FP) PO SCH ×3 (08:47→18:01)
[2019-08-31] MEDS: SEVELAMER CARBONATE 800 MG TAB (FP) PO SCH ×3 (08:47→18:02)
[2019-08-31] MEDS: INSULIN SLIDING SCALE (NOVOLOG) 1 VIAL SQ SCH ×4 (08:51→21:08)
[2019-08-31] MEDS: amLODIPine BESYLATE 5 MG TABLET (FP) PO SCH (09:21)
[2019-08-31] MEDS ORDERED: TENOFOVIR DISOPROXIL FUMARATE 300 MG TABLET PO SCH (10:00)
[2019-08-31] MEDS ORDERED: OSELTAMIVIR PHOSPHATE 30 MG CAPSULE PO ONE (11:21)
--- NOTE | 2019-08-31 11:28 | PN ---
Progress Note (short form) - Note Progress Note: ID consult dictated imp/reccd 49 yo man PMH dm for over 20 years, ESRD/HD for 5 years, HIV for 7 years, recent group b strep bacteremia secondary to 3rd toe amputation May 2019, s/p ancef with HD for 4 weeks post discharge admitted with acute onset of cough on Sunday, with shivering after HD on Sunday- was advised to come to ED continues with cough and intermittent fevrs/myalgias vomiting once on Sunday and again before admission yesterday no diarrhea influenza screen negative cxray negative FEVER received vanco/zosyn in ED blood cultures sent will observe off antibiotics at this time vanco "on board" f/u cultures, f/u echo continue HIV meds- follows with PMD at [facility]-CD$ 429 06/07 most c/w influenza- he has been vaccinated, but antigen screens have only fair sensitivity will isolate, get PCR, treat with tamiflu adjusted for esrd s/p group b strep bacteremia secondary to infected left 3rd toe- s/p amputatio ( well healed) treated with ancef at HD
[2019-08-31] MEDS: RILPIVIRINE HCL 25 MG TABLET PO SCH (12:02)
--- NOTE | 2019-08-31 12:53 | CONS ---
DATE OF CONSULTATION: DATE OF DICTATION: 08/31/2019 REQUESTED BY: The hospitalist service. This is a 49-year-old man. He has a history of diabetes from his 20s, for over 20 years. He has a history of dialysis for the last 5 years and HIV disease for the last 7 years. He was last hospitalized at [facility] June 14 to June 19, when he had an infected right 3rd toe that ultimately had an abscess on the toe. It required amputation. He also had group B streptococcus bacteremia. He was treated in the hospital with ceftriaxone and switched to cefazolin to complete 4 weeks of dialysis. He was followed up with podiatry and the foot had healed well. He reports that on Sunday, he started having cough. The cough persisted. It was very acute in onset. He had body aches and he had vomiting once on Sunday. On Sunday he went to dialysis, started shivering after dialysis was completed. He was advised ER admission. He had an episode of vomiting in the parking lot prior to entering the ER. He has not vomited since. I am asked to see him for fever. He denies any chest pain, shortness of breath. He has no abdominal pain. He has no diarrhea. His vomiting has resolved. He has no known drug allergies. His medications include PhosLo, Emtriva, Edurant, Viread, amlodipine, sevelamer, and insulin. His past medical history is notable for diabetes for over 20 years. He has a history of end-stage renal disease. He is on dialysis Tuesdays, , and Saturdays here in [place]. He has a history of hypertension. He has been HIV positive for the last 7 years. He is followed at [facility] in the city. He does also have a history of prior MRSA of his right 2nd toe back in 2012. SURGICAL HISTORY: He has a left AV fistula. He had a PD catheter placed in the past, but which was removed because that was unsuccessful. He has lost his 1st, 2nd, and 3rd toes of his right foot. He has a history as well of bilateral cataract surgery, had surgery in April and March of 2019. SOCIAL HISTORY: There is no history of cigarette, alcohol, or substance use. He is originally from [place]. He lives alone. 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 REVIEW OF SYSTEMS: As per HPI. FAMILY HISTORY: Noncontributory. PHYSICAL EXAMINATION: General: He is awake and alert. He is resting comfortably. Vital Signs: Temperature is 98.4. T-max was 101.7. He still complains of cough. He has no hemoptysis. His current temperature is 98.4, pulse of 87, blood pressure 146/84, respiratory rate 19, saturating 98% on room air. HEENT: Normocephalic. He has no pharyngitis or thrush. He has good dentition. NECK: Supple. He has no meningeal signs. Lungs: Clear to auscultation. Heart: Regular rate and rhythm. He has a 2/6 systolic ejection murmur. Abdomen: Soft, nontender. Extremities: His right foot is well healed. He has 2 remaining toes. Left foot has no skin breakdown. His left AV fistula is without any erythema or induration. LABORATORY DATA: White count is 4.5, hemoglobin is 11.8, platelets 156. His chemistries are notable for BUN and creatinine of 20 and 6.5, AST of 42, hemoglobin A1c is 6.9. His T cells done in May 2019 were 429, at which time he was hepatitis B surface antigen and hepatitis C negative. Influenza screen was done in the ER and is negative. Chest x-ray is without infiltrate. In summary, this is a 49-year-old man with recent history of Group B streptococcus bacteremia secondary to an infected toe, status post amputation, admitted with acute onset of cough with shivering and myalgia on Sunday and Sunday, who now continues with cough and intermittent fevers, myalgia. Vomiting has resolved. He received vancomycin and Zosyn in the ER and blood cultures have been sent. I would suspect his illness is most consistent with a flu-like illness. He has been vaccinated but has multiple risk factors for influenza illness and the antigen screen is not 100% sensitive. In this situation, I would suggest we move him to isolation and treat him with Tamiflu, adjusted for his renal failure. I would continue his HIV medications. I would observe him off antibiotics at this time. He did get vancomycin and Zosyn in the ER. Would follow up his cultures, and would follow up echo as well, as he does have a murmur. Further recommendations to follow. LAVELL MARTINEZ M.D. SHAINA/[id number]
--- NOTE | 2019-08-31 13:35 | EKG ---
Test Reason : Blood Pressure : / mmHG Vent. Rate : 085 BPM Atrial Rate : 085 BPM P-R Int : 146 ms QRS Dur : 088 ms QT Int : 394 ms P-R-T Axes : 063 089 048 degrees QTc Int : 468 ms NORMAL SINUS RHYTHM POSSIBLE LEFT ATRIAL ENLARGEMENT LEFT VENTRICULAR HYPERTROPHY ABNORMAL ECG WHEN COMPARED WITH ECG OF 17-JUN-2019 14:37, NO SIGNIFICANT CHANGE WAS FOUND Confirmed by GABO MANLEY, JOSH ([id number]) on 08/31/2019 1:35:39 PM Referred By: Confirmed By:JOSH AYON MD
--- NOTE | 2019-08-31 18:10 | PN ---
Physical Exam: SUBJECTIVE: Patient seen and examined at the bedside. in no acute distress. dry cough. OBJECTIVE: Patient is a 49 year old male with a history of HTN, DM, ESRD on dialysis (T,TH, Sat) who presents for evaluation of cough, fever, body ache, nausea and vomiting. He is being treated emperically for the flu, blood and urine cultures pending. Noted to have a possible murmur on exam and is pending an echo in a.m . Vital Signs Period Temp Pulse Resp BP Sys/Lopez Pulse Ox Last 24 Hr 98.3 F-101.7 F 87-98 15-93 137-146/70-84 98-98 GENERAL: The patient is awake, alert, and fully oriented, in no acute distress. HEAD: Normal with no signs of trauma. EYES: PERRL, extraocular movements intact, sclera anicteric, conjunctiva clear. No ptosis. ENT: Ears normal, nares patent, oropharynx clear without exudates, moist mucous membranes. NECK: Trachea midline, full range of motion, supple. LUNGS: Breath sounds equal, clear to auscultation bilaterally, no wheezes, no crackles, no accessory muscle use. HEART: soft murmur vs bruit from av fistula, for echo in a.m. ABDOMEN: Soft, nontender, nondistended, normoactive bowel sounds EXTREMITIES: no edema. left arm bruit/thrill NEUROLOGICAL: Normal speech, gait not observed. Laboratory Results - last 24 hr 08/30/19 08/31/19 08/31/19 21:29 07:11 12:15 POC Glucometer 186 92 76 08/31/19 18:00 POC Glucometer 98 Active Medications Generic Name Dose Route Start Last Admin Trade Name Freq PRN Reason Stop Dose Admin Acetaminophen 650 mg 08/31/19 03:48 08/31/19 04:02 Tylenol - PO 650 mg Q6H PRN Administration FEVER Amlodipine Besylate 5 mg 08/31/19 10:00 08/31/19 09:21 Norvasc - PO 5 mg DAILY JONNATHAN Administration Calcium Acetate 1,334 mg 08/31/19 08:00 08/31/19 12:16 Phoslo - PO 1,334 mg TIDCM JONNATHAN Administration Emtricitabine 200 mg 09/01/19 10:00 Emtriva - PO Q4D@1000 JONNATHAN Insulin Aspart 1 vial 08/30/19 22:00 08/31/19 12:19 Novolog Vial Sliding Scale - SQ Not Given ACHS [facility] Protocol Insulin Detemir 25 units 08/30/19 22:00 08/30/19 21:32 Levemir Vial SQ 25 unit HS [facility] Administration Oseltamivir Phosphate 30 mg 09/02/19 22:00 Tamiflu - PO 09/07/19 21:59 TuThSa@2200 [facility] Sevelamer Carbonate 800 mg 08/30/19 18:30 08/31/19 12:16 Renvela - PO 800 mg TIDCM [facility] Administration Tenofovir Disoproxil Fumarate 300 mg 08/31/19 10:00 08/31/19 09:13 Viread - PO Not Given Waters@1000 [facility] ASSESSMENT/PLAN: Problem List - Problems (1) Fever and chills Assessment/Plan: sauceda cultured per ID, being treated emperically for flu, on tamiflu renally dosed cultures pending monitor labs, vitals Code(s): R50.9 - FEVER, UNSPECIFIED (2) Murmur, heart Assessment/Plan: for echo to further evaluate Code(s): R01.1 - CARDIAC MURMUR, UNSPECIFIED (3) HIV disease Assessment/Plan: on haart therapy Code(s): B20 - HUMAN IMMUNODEFICIENCY VIRUS [HIV] DISEASE (4) Acute renal failure (ARF) Assessment/Plan: monitor labs, in dialysis Code(s): N17.9 - ACUTE KIDNEY FAILURE, UNSPECIFIED (5) ESRD (end stage renal disease) on dialysis Assessment/Plan: renal consulted Code(s): N18.6 - END STAGE RENAL DISEASE; Z99.2 - DEPENDENCE ON RENAL DIALYSIS (6) Diabetes Assessment/Plan: bgms stable, on novolog Code(s): E11.9 - TYPE 2 DIABETES MELLITUS WITHOUT COMPLICATIONS (7) Diabetes Code(s): E11.9 - TYPE 2 DIABETES MELLITUS WITHOUT COMPLICATIONS (8) DVT prophylaxis Assessment/Plan: on heparin Code(s): Z29.9 - ENCOUNTER FOR PROPHYLACTIC MEASURES, UNSPECIFIED Visit type - Emergency Visit Emergency Visit: Yes ED Registration Date: 08/30/19 Care time: The patient presented to the Emergency Department on the above date and was hospitalized for further evaluation of their emergent condition. - New Patient This patient is new to me today: Yes Date on this admission: 08/31/19 - Critical Care Critical Care patient: No - Discharge Referral Referred to [facility] No
--- NOTE | 2019-08-31 19:15 | PN ---
Progress Note, Physician History of Present Illness: Pt seen and examined at bedside. He is awake and alert. He denies fevers or chills today. - Current Medication List Current Medications: Active Medications Acetaminophen (Tylenol -) 650 mg PO Q6H PRN PRN Reason: FEVER Last Admin: 08/31/19 04:02 Dose: 650 mg Amlodipine Besylate (Norvasc -) 5 mg PO DAILY [facility] Last Admin: 08/31/19 09:21 Dose: 5 mg Calcium Acetate (Phoslo -) 1,334 mg PO TIDCM [facility] Last Admin: 08/31/19 18:01 Dose: 1,334 mg Emtricitabine (Emtriva -) 200 mg PO Q4D@1000 [facility] Heparin Sodium (Porcine) (Heparin -) 5,000 unit SQ BID [facility] Insulin Aspart (Novolog Vial Sliding Scale -) 1 vial SQ ACHS [facility]; Protocol Last Admin: 08/31/19 18:02 Dose: Not Given Insulin Detemir (Levemir Vial) 25 units SQ HS [facility] Last Admin: 08/30/19 21:32 Dose: 25 unit Oseltamivir Phosphate (Tamiflu -) 30 mg PO TuThSa@2200 [facility] Stop: 09/07/19 21:59 Sevelamer Carbonate (Renvela -) 800 mg PO TIDCM [facility] Last Admin: 08/31/19 18:02 Dose: 800 mg Tenofovir Disoproxil Fumarate (Viread -) 300 mg PO Waters@1000 [facility] Last Admin: 08/31/19 09:13 Dose: Not Given - Objective Vital Signs: Vital Signs Temperature 99.4 F 08/31/19 14:00 Pulse Rate 90 08/31/19 14:00 Respiratory Rate 18 08/31/19 14:00 Blood Pressure 140/70 08/31/19 14:00 O2 Sat by Pulse Oximetry (%) 98 08/31/19 09:00 Constitutional: Yes: Calm Eyes: Yes: Conjunctiva Clear HENT: Yes: Atraumatic Neck: Yes: Supple Cardiovascular: Yes: Murmur, S1, S2 Respiratory: Yes: CTA Bilaterally Gastrointestinal: Yes: Soft Genitourinary: Yes: WNL Musculoskeletal: Yes: WNL Edema: No Neurological: Yes: Oriented Psychiatric: Yes: Oriented Labs: CBC, BMP 08/30/19 12:42 08/30/19 12:42 INR, PTT INR 1.06 (0.83-1.09) 08/30/19 12:42 Problem List - Problems (1) Fever and chills Code(s): R50.9 - FEVER, UNSPECIFIED (2) HIV disease Code(s): B20 - HUMAN IMMUNODEFICIENCY VIRUS [HIV] DISEASE (3) ESRD (end stage renal disease) on dialysis Code(s): N18.6 - END STAGE RENAL DISEASE; Z99.2 - DEPENDENCE ON RENAL DIALYSIS Assessment/Plan Current Medications Generic Name Dose Route Start Last Admin Trade Name Freq PRN Reason Stop Dose Admin Acetaminophen 650 mg 08/31/19 03:48 08/31/19 04:02 Tylenol - PO 650 mg Q6H PRN Administration FEVER Amlodipine Besylate 5 mg 08/31/19 10:00 08/31/19 09:21 Norvasc - PO 5 mg DAILY [facility] Administration Calcium Acetate 1,334 mg 08/31/19 08:00 08/31/19 18:01 Phoslo - PO 1,334 mg TIDCM [facility] Administration Emtricitabine 200 mg 09/01/19 10:00 Emtriva - PO Q4D@1000 [facility] Heparin Sodium (Porcine) 5,000 unit 08/31/19 22:00 Heparin - SQ BID [facility] Insulin Aspart 1 vial 08/30/19 22:00 08/31/19 18:02 Novolog Vial Sliding Scale - SQ Not Given ACHS [facility] Protocol Insulin Detemir 25 units 08/30/19 22:00 08/30/19 21:32 Levemir Vial SQ 25 unit HS [facility] Administration Oseltamivir Phosphate 30 mg 09/02/19 22:00 Tamiflu - PO 09/07/19 21:59 TuThSa@2200 [facility] Sevelamer Carbonate 800 mg 08/30/19 18:30 08/31/19 18:02 Renvela - PO 800 mg TIDCM [facility] Administration Tenofovir Disoproxil Fumarate 300 mg 08/31/19 10:00 08/31/19 09:13 Viread - PO Not Given Waters@1000 [facility] Microbiology 08/30/19 12:45 Blood - Peripheral Venous Blood Culture - Preliminary NO GROWTH OBTAINED AFTER 24 HOURS, INCUBATION TO CONTINUE FOR 4 DAYS. 08/30/19 12:45 Blood - Peripheral Venous Blood Culture - Preliminary NO GROWTH OBTAINED AFTER 24 HOURS, INCUBATION TO CONTINUE FOR 4 DAYS. Impression 1. esrd 2. hx htn 3. dm 4. hiv 5. dm 6. fever and chills Plan - follow cultures - next HD on Sunday - get echo tomorrow - renal diet - cultures neg so far - ID dae appreciated
[2019-08-31 20:48] LABS: ALBUMIN 3.4 g/dl (3.4-5.0); BILIRUBIN,TOTAL 0.3 mg/dL (0.2-1); BLOOD UREA NITROGEN 43.8 mg/dL (7-18); CALCIUM 9.2 mg/dL (8.5-10.1); POTASSIUM 3.7 mmol/L (3.5-5.1); TOT PROT 6.9 g/dl (6.4-8.2)
[2019-08-31 20:52] LABS: CREATININE 11.6 mg/dL (0.55-1.3)
[2019-08-31] MEDS: INSULIN (LEVEMIR) 100 UNITS/ML UNITS SQ SCH (21:04)
[2019-08-31] MEDS: HEPARIN NA (PORCINE) 5,000 UNITS/ML 1ML VIAL SQ SCH (21:12)
[2019-09-01] MEDS ORDERED: DEXTROSE 50%-WATER 25 GM/50 ML DISP.SYRIN IVPUSH ONE ×2 (05:28→06:30)
[2019-09-01] MEDS ORDERED: DEXTROSE 50%-WATER - 25 GM/50 ML VIAL IVPUSH ONE (06:30)
[2019-09-01 08:27] LABS: BASO % 1.4 % (0-2.0); EOS % 0.3 % (0-4.5); HEMATOCRIT 34.3 % (35.4-49); HEMOGLOBIN 12.1 GM/dL (11.7-16.9); LYMPH % 21.3 % (8-40); MCH 33.2 pg (25.7-33.7); MCHC 35.3 g/dl (32.0-35.9); MEAN CELL VOLUME 93.9 fl (80-96); MEAN PLT VOLUME 7.3 fl (7.5-11.1); MONO % 12.2 % (3.8-10.2); NEUT % 64.8 % (42.8-82.8); PLATELET COUNT 140 K/MM3 (134-434); RBC 3.65 M/mm3 (4.00-5.60); RDW 14.4 % (11.9-15.9); WHITE BLOOD COUNT 2.5 K/mm3 (4.0-10.0)
[2019-09-01] MEDS: SEVELAMER CARBONATE 800 MG TAB (FP) PO SCH ×3 (08:45→17:42)
[2019-09-01] MEDS: CALCIUM ACETATE 667 MG CAPSULE (FP) PO SCH ×3 (08:57→17:41)
[2019-09-01 09:59] LABS: ALBUMIN 3.5 g/dl (3.4-5.0); BILIRUBIN,TOTAL 0.3 mg/dL (0.2-1); BLOOD UREA NITROGEN 55.2 mg/dL (7-18); CALCIUM 9.6 mg/dL (8.5-10.1); MAGNESIUM 2.8 mg/dL (1.8-2.4); TOT PROT 6.7 g/dl (6.4-8.2)
[2019-09-01] MEDS ORDERED: EMTRICITABINE 200 MG CAPSULE PO SCH (10:00)
[2019-09-01] MEDS: HEPARIN NA (PORCINE) 5,000 UNITS/ML 1ML VIAL SQ SCH (10:15)
[2019-09-01 10:36] LABS: CREATININE 13.1 mg/dL (0.55-1.3)
[2019-09-01] MEDS ORDERED: INSULIN (NOVOLOG) ASPART 100 UNITS/ML 10ML VIAL ONE (12:12)
[2019-09-01] MEDS: RILPIVIRINE HCL 25 MG TABLET PO SCH (12:33)
[2019-09-01] MEDS: amLODIPine BESYLATE 5 MG TABLET (FP) PO SCH (12:34)
[2019-09-01] MEDS: INSULIN SLIDING SCALE (NOVOLOG) 1 VIAL SQ SCH ×3 (12:35→17:42)
--- NOTE | 2019-09-01 13:07 | CONSULT ---
Consult - text type - Consultation Consultation Note: Renal consult for ESRD on HD Seen and examined at the bedside offers no acute complaints reports resolution of fevers, body aches denies SOB, CP, fever, chills, N/V/D, Abd pain last dialysis was Sunday Vital Signs Temperature 98.8 F 09/01/19 09:05 Pulse Rate 81 09/01/19 09:05 Respiratory Rate 18 09/01/19 09:05 Blood Pressure 140/80 09/01/19 09:05 O2 Sat by Pulse Oximetry (%) 97 08/31/19 22:00 Intake & Output 08/29/19 08/30/19 08/31/19 09/01/19 23:59 23:59 23:59 23:59 Intake Total 100 1150 300 Balance 100 1150 300 Weight 65.272 kg NAD awake and alert neck supple no LE edema CBC, BMP 09/01/19 07:17 09/01/19 07:17 Hepatic Panel Total Bilirubin 0.3 mg/dL (0.2-1) 09/01/19 07:17 AST 35 U/L (15-37) 09/01/19 07:17 ALT 22 U/L (13-61) 09/01/19 07:17 Alkaline Phosphatase 80 U/L (45-117) 09/01/19 07:17 Albumin 3.5 g/dl (3.4-5.0) 09/01/19 07:17 Current Medications Acetaminophen (Tylenol -) 650 mg PO Q6H PRN PRN Reason: FEVER Last Admin: 08/31/19 04:02 Dose: 650 mg Amlodipine Besylate (Norvasc -) 5 mg PO DAILY [facility] Last Admin: 09/01/19 12:34 Dose: 5 mg Calcium Acetate (Phoslo -) 1,334 mg PO TIDCM [facility] Last Admin: 09/01/19 12:34 Dose: 1,334 mg Emtricitabine (Emtriva -) 200 mg PO Q4D@1000 [facility] Last Admin: 09/01/19 12:34 Dose: 200 mg Heparin Sodium (Porcine) (Heparin -) 5,000 unit SQ BID [facility] Last Admin: 09/01/19 10:15 Dose: 5,000 unit Insulin Aspart (Novolog Vial Sliding Scale -) 1 vial SQ [facility]; Protocol Last Admin: 01/13/20 12:40 Dose: Not Given Insulin Detemir (Levemir Vial) 25 units SQ HS [facility] Last Admin: 08/31/19 21:04 Dose: 25 unit Oseltamivir Phosphate (Tamiflu -) 30 mg PO TuThSa@2200 [facility] Stop: 09/07/19 21:59 Sevelamer Carbonate (Renvela -) 800 mg PO TIDCM [facility] Last Admin: 09/01/19 12:35 Dose: 800 mg Tenofovir Disoproxil Fumarate (Viread -) 300 mg PO Waters@1000 [facility] Last Admin: 08/31/19 09:13 Dose: Not Given 49 year old gentleman with history of ESRD on HD, hypertension and HIV presented with fever and body aches and admitted with suspected influenza. 1. Fever/chills likely secondary to influenza 2. ESRD on HD 3. Hypertension 4. HIV no acute indication for dialysis today. Next planned dialysis is Sunday. Real diet, 1.2L fluid restriction. Continue empiric tamiflu as per ID f/u echocardiogram discharge planning as per primary team Krzysztof Pearce DO
--- NOTE | 2019-09-01 14:45 | PN ---
Progress Note (short form) - Note Progress Note: feels well still some residual cough Vital Signs Period Temp Pulse Resp BP Sys/Lopez Pulse Ox Last 24 Hr 98.1 F-98.8 F 81-91 15-20 128-168/66-81 97-98 cor-rrr lungs clear abd soft,nt ext no edema CBC, BMP 09/01/19 07:17 09/01/19 07:17 Microbiology 08/30/19 12:45 Blood - Peripheral Venous Blood Culture - Preliminary NO GROWTH OBTAINED AFTER 48 HOURS, INCUBATION TO CONTINUE FOR 3 DAYS. 08/30/19 12:45 Blood - Peripheral Venous Blood Culture - Preliminary NO GROWTH OBTAINED AFTER 48 HOURS, INCUBATION TO CONTINUE FOR 3 DAYS. FEVER-resolved received vanco/zosyn in ED blood cultures sent suspect viral infection-most c/w influenza continue tamiflu 30 mg after each HD for total 5 days continue HIV meds- follows with PMD at [facility]-CD4 429 06/07 s/p group b strep bacteremia secondary to infected left 3rd toe- s/p amputation (well healed) treated with ancef at HD no objection to d/c home after echo results are reviewed
--- NOTE | 2019-09-01 15:39 | ECHO ---
Name: CUBA CIFUENTES Exam:Adult Echocardiogram Study Date: 09/01/2019 01:14 PM Age: 49 yrs Height: 66 in Weight: 145 lb BSA: 1.7 m2 MMode/2D Measurements & Calculations IVSd: 1.2 cm Ao root diam: 2.8 cm LVIDd: 4.3 cm LA dimension: 2.7 cm LVIDs: 2.7 cm ACS: 1.9 cm LVPWd: 1.4 cm EDV(Teich): 83.6 ml LVOT diam: 1.9 cm ESV(Teich): 26.8 ml RV S Jelani: 20.7 cm/sec Doppler Measurements & Calculations MV E max jelani: 91.9 cm/sec Ao V2 max: 137.3 cm/sec MV A max jelani: 93.8 cm/sec Ao max P.5 mmHg MV E/A: 0.98 Ao V2 mean: 104.4 cm/sec MV dec time: 0.21 sec Ao mean P.7 mmHg Ao V2 VTI: 28.7 cm SHAGGY(I,D): 2.2 cm2 SHAGGY(V,D): 1.9 cm2 LV V1 max P.3 mmHg MR max jelani: 203.6 cm/sec LV V1 mean P.6 mmHg MR max P.6 mmHg LV V1 max: 90.7 cm/sec LV V1 mean: 59.9 cm/sec LV V1 VTI: 21.1 cm SV(LVOT): 62.1 ml TR max jelani: 252.3 cm/sec TR max P.8 mmHg PA V2 max: 63.2 cm/sec Med Peak E' Jelani: 7.9 cm/sec PA max P.6 mmHg Med E/e': 11.6 Lat Peak E' Jelani: 6.1 cm/sec Lat E/e': 15.0 Procedure A complete two-dimensional transthoracic echocardiogram was performed (2D, M-mode, Doppler and color flow Doppler). Technically limited study. Left Ventricle The left ventricle is normal in size. There is mild concentric left ventricular hypertrophy. Left jennifer tricular systolic function is normal. Ejection Fraction = 65-70%. No regional wall motion abnormalities noted. Right Ventricle The right ventricle is normal size. The right ventricular systolic function is normal. Atria The left atrial size is normal. Right atrial size is normal. Mitral Valve The mitral valve is normal in structure and function. There is mild mitral regurgitation. Tricuspid Valve The tricuspid valve is normal in structure and function. There is mild tricuspid regurgitation. Pulmo nary artery systolic pressure is at least 35 mmHg if RA pressure is assumed 3 mmHg. Aortic Valve The aortic valve is normal in structure and function. No aortic regurgitation is present. Pulmonic Valve The pulmonic valve is not well visualized. Great Vessels The aortic root is normal size. Pericardium/Pleura There is no pericardial effusion. Interpretation Summary The left ventricle is normal in size. There is mild concentric left ventricular hypertrophy. Left ventricular systolic function is normal. No regional wall motion abnormalities noted. Ejection Fraction = 65-70%. The right ventricular systolic function is normal. The left atrial size is normal. Right atrial size is normal. There is mild mitral regurgitation. There is mild tricuspid regurgitation. Pulmonary artery systolic pressure is at least 35 mmHg if RA pressure is assumed 3 mmHg There is no pericardial effusion. Anjel Del Valle MD 09/01/2019 03:38 PM
--- NOTE | 2019-09-01 16:58 | CON.CARD ---
Consult Consult Specialty:: cardiology Reason for Consultation:: heart murmur - History of Present Illness Chief Complaint: PT A&Ox3; asymptomatic. History of Present Illness: 08/30/19 12:14 The patient is a 49 year old male with a significant PMH of ESRD on HD (T, Th, S) HTN, and IDDM who presents to the emergency department for 1 day of fever, cough and body aches. The patient states he endorsed 1 episode of nbnb vomiting today in the parking lot. Pt states he had a complete dialysis prior to his arrival to the ED. The patient denies chest pain, shortness of breath, headache and dizziness. Denies chills, nausea, diarrhea and constipation. Denies dysuria, frequency, urgency and hematuria. Allergies: NKDA PCP: Dr. Lai Renal: Dr. Maki trujillo + Dr. Pearce - History Source History Provided By: Patient, Medical Record - Past Medical History Cardio/Vascular: Yes: HTN Renal/: Yes: Renal Failure, Hemodialysis Infectious Disease: Yes: HIV Endocrine: Yes: Diabetes Mellitus - Alcohol/Substance Use Hx Alcohol Use: No - Smoking History Smoking history: Former smoker Have you smoked in the past 12 months: No Aproximately how many cigarettes per day: 10 - Social History Usual Living Arrangement: With Parent ADL: Independent History of Recent Travel: No Home Medications - Allergies Allergies/Adverse Reactions: Allergies Allergy/AdvReac Type Severity Reaction Status Date / Time No Known Drug Allergies Allergy Verified 06/14/19 17:43 - Home Medications Home Medications: Ambulatory Orders Calcium Acetate [Phoslo -] 1,334 mg PO TIDCM #90 capsule 07/16/14 Emtricitabine [Emtriva -] 200 mg PO Q96H 07/17/18 Rilpivirine HCl [Edurant] 25 mg PO DAILY 07/17/18 Tenofovir Disoproxil Fumarate [Viread -] 300 mg PO WEEKLY 07/17/18 Amlodipine Besylate 5 mg PO DAILY 06/16/19 Sevelamer HCl 800 mg PO TID 06/16/19 Insulin (Levemir) [Levemir Vial] 25 units SQ HS units 06/19/19 Vital Signs: Vital Signs Temperature 98.2 F 09/01/19 15:48 Pulse Rate 79 09/01/19 15:48 Respiratory Rate 18 09/01/19 15:48 Blood Pressure 137/65 09/01/19 15:48 O2 Sat by Pulse Oximetry (%) 97 08/31/19 22:00 - Other Data Labs, Other Data: CBC, BMP 09/01/19 07:17 09/01/19 07:17 INR, PTT INR 1.06 (0.83-1.09) 08/30/19 12:42 Problem List - Problems (1) Diabetes Code(s): E11.9 - TYPE 2 DIABETES MELLITUS WITHOUT COMPLICATIONS (2) Fever and chills Code(s): R50.9 - FEVER, UNSPECIFIED (3) Murmur, heart Assessment/Plan: Two murmurs hears: 2/6 systolic murmur, LSB-->left axilla faint "machinery murmur" along upper anterior wall from AV graft. ECHO: normal LVEF; mild LVH; abnormal diastolic compliance; mild TR and MR; borderline elevated pulmonary arterial pressure. From a cardiac standpoint, pt may be followed as an outpatient (his doctors are in [facility]). Code(s): R01.1 - CARDIAC MURMUR, UNSPECIFIED (4) HIV disease Code(s): B20 - HUMAN IMMUNODEFICIENCY VIRUS [HIV] DISEASE (5) Anemia Code(s): D64.9 - ANEMIA, UNSPECIFIED (6) Hypertension Code(s): I10 - ESSENTIAL (PRIMARY) HYPERTENSION (7) ESRD (end stage renal disease) on dialysis Code(s): N18.6 - END STAGE RENAL DISEASE; Z99.2 - DEPENDENCE ON RENAL DIALYSIS
--- NOTE | 2019-09-01 17:31 | DS ---
Physical Exam: SUBJECTIVE: Patient seen and examined OBJECTIVE: Vital Signs Period Temp Pulse Resp BP Sys/Lopez Pulse Ox Last 24 Hr 98.1 F-98.8 F 79-91 15-20 128-168/65-81 97-98 PHYSICAL EXAM GENERAL: The patient is awake, alert, and fully oriented, in no acute distress. HEAD: Normal with no signs of trauma. EYES: PERRL, extraocular movements intact, sclera anicteric, conjunctiva clear. ENT: Ears normal, nares patent, oropharynx clear without exudates, moist mucous membranes. NECK: Trachea midline, full range of motion, supple. LUNGS: Breath sounds equal, clear to auscultation bilaterally, no wheezes, no crackles, no accessory muscle use. HEART: Regular rate and rhythm, S1, S2 without murmur, rub or gallop. ABDOMEN: Soft, nontender, nondistended, normoactive bowel sounds, no guarding, no rebound, no hepatosplenomegaly, no masses. EXTREMITIES: 2+ pulses, warm, well-perfused, no edema. NEUROLOGICAL: Cranial nerves II through XII grossly intact. Normal speech, gait not observed. PSYCH: Normal mood, normal affect. SKIN: Warm, dry, normal turgor, no rashes or lesions noted. LABS Laboratory Results - last 24 hr 08/31/19 08/31/19 08/31/19 18:00 18:55 20:39 WBC RBC Hgb Hct MCV MCH MCHC RDW Plt Count MPV Absolute Neuts (auto) Neutrophils % Lymphocytes % Monocytes % Eosinophils % Basophils % Nucleated RBC % Sodium 136 Potassium 3.7 Chloride 97 L Carbon Dioxide 30 Anion Gap 9 BUN 43.8 H Creatinine 11.6 H* Est GFR (CKD-EPI)AfAm 5.30 Est GFR (CKD-EPI)NonAf 4.58 POC Glucometer 98 163 Random Glucose 107 H Calcium 9.2 Magnesium Total Bilirubin 0.3 AST 35 ALT 21 Alkaline Phosphatase 81 Total Protein 6.9 Albumin 3.4 Random Vancomycin 09/01/19 09/01/19 09/01/19 05:10 06:14 07:17 WBC RBC Hgb Hct MCV MCH MCHC RDW Plt Count MPV Absolute Neuts (auto) Neutrophils % Lymphocytes % Monocytes % Eosinophils % Basophils % Nucleated RBC % Sodium Potassium Chloride Carbon Dioxide Anion Gap BUN Creatinine Est GFR (CKD-EPI)AfAm Est GFR (CKD-EPI)NonAf POC Glucometer 41 57 Random Glucose Calcium Magnesium Total Bilirubin AST ALT Alkaline Phosphatase Total Protein Albumin Random Vancomycin < 0.8 L 09/01/19 09/01/19 09/01/19 07:17 07:17 08:02 WBC 2.5 L RBC 3.65 L Hgb 12.1 Hct 34.3 L MCV 93.9 MCH 33.2 MCHC 35.3 RDW 14.4 Plt Count 140 MPV 7.3 L Absolute Neuts (auto) 1.6 Neutrophils % 64.8 Lymphocytes % 21.3 D Monocytes % 12.2 H Eosinophils % 0.3 Basophils % 1.4 Nucleated RBC % 0 Sodium 135 L Potassium 4.0 Chloride 97 L Carbon Dioxide 29 Anion Gap 9 BUN 55.2 H Creatinine 13.1 H* Est GFR (CKD-EPI)AfAm 4.58 Est GFR (CKD-EPI)NonAf 3.95 POC Glucometer 121 Random Glucose 155 H Calcium 9.6 Magnesium 2.8 H Total Bilirubin 0.3 AST 35 ALT 22 Alkaline Phosphatase 80 Total Protein 6.7 Albumin 3.5 Random Vancomycin 09/01/19 11:51 WBC RBC Hgb Hct MCV MCH MCHC RDW Plt Count MPV Absolute Neuts (auto) Neutrophils % Lymphocytes % Monocytes % Eosinophils % Basophils % Nucleated RBC % Sodium Potassium Chloride Carbon Dioxide Anion Gap BUN Creatinine Est GFR (CKD-EPI)AfAm Est GFR (CKD-EPI)NonAf POC Glucometer 158 Random Glucose Calcium Magnesium Total Bilirubin AST ALT Alkaline Phosphatase Total Protein Albumin Random Vancomycin HOSPITAL COURSE: Date of Admission:08/30/19 Date of Discharge: 09/01/19 Discharge Summary Problems reviewed: Yes Reason For Visit: FEVER WITH CHILLS, HEART MURMUR Current Active Problems DVT prophylaxis (Acute) Diabetes (Acute) Diabetes (Acute) Fever and chills (Acute) Murmur, heart (Acute) HIV disease (Chronic) Condition: Stable - Instructions Diet, Activity, Other Instructions: Mr. Lares: You were admitted for fever and chills and we are treating you for influenza. You were also noted to have a heart murmur and you have been evaluated by a food order expediter. Here are our discharge instructions: Medications: Continue the Tamiflu 30mg AFTER dialsysis for a total of 5 days. In other words , take only on dialysis days and after dialysis is completed for a total of 5 doses. continue HIV meds- and follow up with your primary care doctor. Heart Murmur: Please follow up with Dr. Harry (food order expediter) for follow up care. Dialysis: Your next dialysis is tomorrow at your home center. Thank you for allowing us to care for you A work note is included in your packet. You can return to work on Sunday, September 03. Thank you for allowing us to care for you. Referrals: Bruce Flower MD [Staff Physician] - ON STAFF,NOT [Primary Care Provider] - - Home Medications Comprehensive Discharge Medication List: Ambulatory Orders Calcium Acetate [Phoslo -] 1,334 mg PO TIDCM #90 capsule 07/16/14 Emtricitabine [Emtriva -] 200 mg PO Q96H 07/17/18 Rilpivirine HCl [Edurant] 25 mg PO DAILY 07/17/18 Tenofovir Disoproxil Fumarate [Viread -] 300 mg PO WEEKLY 07/17/18 Amlodipine Besylate 5 mg PO DAILY 06/16/19 Sevelamer HCl 800 mg PO TID 06/16/19 Insulin (Levemir) [Levemir Vial] 25 units SQ HS units 06/19/19 Oseltamivir Phosphate [Tamiflu -] 30 mg PO TuThSa@2200 #5 capsule 09/01/19 Problem List - Problems (1) Fever and chills Code(s): R50.9 - FEVER, UNSPECIFIED (2) Murmur, heart Code(s): R01.1 - CARDIAC MURMUR, UNSPECIFIED (3) HIV disease Code(s): B20 - HUMAN IMMUNODEFICIENCY VIRUS [HIV] DISEASE (4) Acute renal failure (ARF) Code(s): N17.9 - ACUTE KIDNEY FAILURE, UNSPECIFIED (5) ESRD (end stage renal disease) on dialysis Code(s): N18.6 - END STAGE RENAL DISEASE; Z99.2 - DEPENDENCE ON RENAL DIALYSIS (6) Diabetes Code(s): E11.9 - TYPE 2 DIABETES MELLITUS WITHOUT COMPLICATIONS (7) Diabetes Code(s): E11.9 - TYPE 2 DIABETES MELLITUS WITHOUT COMPLICATIONS (8) DVT prophylaxis Code(s): Z29.9 - ENCOUNTER FOR PROPHYLACTIC MEASURES, UNSPECIFIED - Discharge Referral Referred to [facility] No
[2019-09-01 18:56] VITALS: BP 139/71; PULSE 78; TEMP 98.6
[2019-09-02] MEDS ORDERED: OSELTAMIVIR PHOSPHATE 30 MG CAPSULE PO SCH (22:00)
== END 2019-09-01 19:33 | disposition home or self-care (01) | DRG 193 ==
LOC: JER 11:06 → JERBED 14:39 → J8W 18:47
PROVIDERS: ADMIT Internal Medicine; ATTEND Nurse Practitioner Family
DX: J10.1 Influenza due to other identified influenza virus with other respiratory manifestations (principal); N18.6 End stage renal disease; I12.0 Hypertensive chronic kidney disease with stage 5 chronic kidney disease or end stage renal disease; N17.9 Acute kidney failure, unspecified; E11.22 Type 2 diabetes mellitus with diabetic chronic kidney disease; R50.9 Fever, unspecified; R01.1 Cardiac murmur, unspecified; D64.9 Anemia, unspecified; Z99.2 Dependence on renal dialysis; Z21 Asymptomatic human immunodeficiency virus [HIV] infection status; Z89.422 Acquired absence of other left toe(s)
CPT/HCPCS: 36415; 71046-TC-FY; 80053; 82962; 83605; 83735; 84484; 85025; 85610; 85730; 87040; 87633; 87804; 93005; 93010; 93306-TC; 99285-25; G0480; J0131; J1644

== ENCOUNTER 2021-02-26 09:57 | Emergency (ER) | payer BC, OTHER ==
[2021-02-26 10:34] VITALS: BP 130/79; PULSE 90; TEMP 98.5; BMI 24.8
== END 2021-02-26 10:40 | disposition home or self-care (01) ==
LOC: FER 09:57
DX: S91.301A Unspecified open wound, right foot, initial encounter (principal)
CPT/HCPCS: 99283-25

== ENCOUNTER 2021-03-03 09:53 | Inpatient (IN) | payer OTHER, BC ==
[2021-03-03 12:19] LABS: BASO % 0.8 % (0-2.0); EOS % 2.2 % (0-4.5); LYMPH % 28.7 % (8-40); MCH 30.7 pg (25.7-33.7); MCHC 34.2 g/dl (32.0-35.9); MEAN CELL VOLUME 89.9 fl (80-96); MEAN PLT VOLUME 6.5 fl (7.5-11.1); MONO % 4.6 % (3.8-10.2); NEUT % 63.7 % (42.8-82.8); PLATELET COUNT 175 10^3/uL (134-434); RDW 15.2 % (11.9-15.9); WHITE BLOOD COUNT 4.2 K/mm3 (4.0-10.0)
[2021-03-03 12:46] LABS: CHLORIDE 101 mmol/L (98-107); SODIUM 138 mmol/L (136-145)
[2021-03-03 12:48] LABS: ALBUMIN 3.9 g/dl (3.4-5.0); ANION GAP 9 MMOL/L (8-16); BLOOD UREA NITROGEN 22.6 mg/dL (7-18); CALCIUM 8.6 mg/dL (8.5-10.1); CO2 28 mmol/L (21-32); GLUCOSE,RANDOM 235 mg/dL (74-106)
[2021-03-03 12:52] LABS: SGOT/AST 15 U/L (15-37); SGPT/ALT 25 U/L (13-61)
[2021-03-03 12:53] LABS: BILIRUBIN,TOTAL 0.6 mg/dL (0.2-1)
[2021-03-03 12:54] LABS: ALK PHOS 172 U/L (45-117); CREATININE 8.1 mg/dL (0.55-1.3)
[2021-03-03 13:00] LABS: ERYTHROCYTE SEDIMENTATION RATE 40 mm/hr (0-10)
[2021-03-03] MEDS ORDERED: PIPERACILLIN/TAZOB 4.5 GM 4.5 GM in DEXTROSE 5%-WATER 100 ML IVPB ONE (13:40)
[2021-03-03] MEDS ORDERED: VANCOMYCIN 1 GM in D5W (PRE-DOCKED) 1,000 MG/250 ML IVPB ONE (13:41)
[2021-03-03] MEDS ORDERED: PIPERACILLIN/TAZOB 4.5 GM 4.5 GM/100 ML BAG IVPB ONE ×2 (13:53→19:43)
[2021-03-03] MEDS ORDERED: VANCOMYCIN 1 GRAM (PRE-DOCKED) 1,000 MG/250 ML BAG IVPB ONE (13:53)
[2021-03-03] MEDS ORDERED: ACETAMINOPHEN 325 MG TABLET (FP) PO PRN (14:54)
[2021-03-03] MEDS ORDERED: INSULIN SLIDING SCALE (NOVOLOG) 1 VIAL SQ ONE ×2 (17:31→17:47)
[2021-03-03] MEDS: INSULIN SLIDING SCALE (NOVOLOG) 1 VIAL SQ SCH ×2 (17:39→22:15)
[2021-03-03] MEDS: CALCIUM ACETATE 667 MG CAPSULE (FP) PO SCH (18:00)
[2021-03-03] MEDS: PIPERACILLIN/TAZOB 4.5 GM 4.5 GM in DEXTROSE 5%-WATER 100 ML IVPB SCH ×2 (19:54→19:56)
[2021-03-03] MEDS: HEPARIN NA (PORCINE) 5,000 UNITS/ML 1ML VIAL SQ SCH (22:17)
[2021-03-04] MEDS ORDERED: DEXTROSE 5%-WATER 100 ML IVPB ONE (01:14)
[2021-03-04] MEDS ORDERED: PIPERACILLIN/TAZOBACTAM 4.5 GM VIAL IVPB ONE (01:14)
[2021-03-04] MEDS: PIPERACILLIN/TAZOB 4.5 GM 4.5 GM in DEXTROSE 5%-WATER 100 ML IVPB SCH (01:15)
[2021-03-04 04:00] VITALS: BMI 23.1
[2021-03-04] MEDS: HEPARIN NA (PORCINE) 5,000 UNITS/ML 1ML VIAL SQ SCH ×3 (05:22→21:37)
[2021-03-04] MEDS: INSULIN SLIDING SCALE (NOVOLOG) 1 VIAL SQ SCH ×4 (06:06→21:37)
[2021-03-04] MEDS ORDERED: SEVELAMER CARBONATE 800 MG TAB (FP) PO SCH (07:00)
[2021-03-04] MEDS: CALCIUM ACETATE 667 MG CAPSULE (FP) PO SCH ×3 (08:30→17:43)
[2021-03-04 09:34] LABS: BASO % 0.7 % (0-2.0); EOS % 1.7 % (0-4.5); HEMATOCRIT 33.3 % (35.4-49); HEMOGLOBIN 11.2 GM/dL (11.7-16.9); LYMPH % 26.6 % (8-40); MCH 30.4 pg (25.7-33.7); MCHC 33.5 g/dl (32.0-35.9); MEAN CELL VOLUME 90.6 fl (80-96); MEAN PLT VOLUME 7.1 fl (7.5-11.1); MONO % 5.9 % (3.8-10.2); NEUT % 65.1 % (42.8-82.8); PLATELET COUNT 166 10^3/uL (134-434); RBC 3.68 M/mm3 (4.00-5.60); RDW 15.5 % (11.9-15.9); WHITE BLOOD COUNT 4.1 K/mm3 (4.0-10.0)
[2021-03-04 09:52] LABS: CHLORIDE 105 mmol/L (98-107); SODIUM 141 mmol/L (136-145)
[2021-03-04] MEDS ORDERED: amLODIPine BESYLATE 5 MG TABLET (FP) PO SCH (10:00)
[2021-03-04 10:09] LABS: ALBUMIN 3.2 g/dl (3.4-5.0)
[2021-03-04 10:13] LABS: BLOOD UREA NITROGEN 41.5 mg/dL (7-18); CALCIUM 8.9 mg/dL (8.5-10.1)
[2021-03-04 10:14] LABS: ANION GAP 13 MMOL/L (8-16); CO2 23 mmol/L (21-32); GLUCOSE,RANDOM 123 mg/dL (74-106); MAGNESIUM 2.6 mg/dL (1.8-2.4)
[2021-03-04 10:16] LABS: SGOT/AST 16 U/L (15-37); SGPT/ALT 20 U/L (13-61)
[2021-03-04 10:17] LABS: BILIRUBIN,TOTAL 0.5 mg/dL (0.2-1); PHOSPHOROUS 6.9 mg/dL (2.5-4.9); TOT PROT 6.6 g/dl (6.4-8.2)
[2021-03-04 10:21] LABS: ALK PHOS 104 U/L (45-117); CREATININE 11.2 mg/dL (0.55-1.3)
[2021-03-04] MEDS ORDERED: SODIUM CHLORIDE 250 ML IV PRN (12:25)
[2021-03-04] MEDS ORDERED: DEXTROSE 5%-WATER - 50 ML IVPB ONE (16:47)
[2021-03-04] MEDS ORDERED: PIPERACILLIN/TAZOBACTAM 2.25 GM VIAL IVPB ONE (16:47)
[2021-03-04] MEDS: PIPERACILLIN/TAZOB 2.25 GM 2.25 GM in DEXTROSE 5%-WATER - 50 ML IVPB SCH ×2 (17:42→18:22)
[2021-03-05] MEDS ORDERED: DEXTROSE 5%-WATER - 50 ML IVPB ONE ×3 (00:51→17:12)
[2021-03-05] MEDS ORDERED: PIPERACILLIN/TAZOBACTAM 2.25 GM VIAL IVPB ONE ×3 (00:51→17:12)
[2021-03-05] MEDS: PIPERACILLIN/TAZOB 2.25 GM 2.25 GM in DEXTROSE 5%-WATER - 50 ML IVPB SCH ×3 (01:00→17:31)
[2021-03-05] MEDS: HEPARIN NA (PORCINE) 5,000 UNITS/ML 1ML VIAL SQ SCH ×3 (05:25→21:55)
[2021-03-05] MEDS: INSULIN SLIDING SCALE (NOVOLOG) 1 VIAL SQ SCH ×4 (06:28→21:47)
[2021-03-05] MEDS: CALCIUM ACETATE 667 MG CAPSULE (FP) PO SCH ×3 (07:27→17:31)
[2021-03-05 09:40] LABS: HEMATOCRIT 31.1 % (35.4-49); HEMOGLOBIN 10.8 GM/dL (11.7-16.9); MCHC 34.5 g/dl (32.0-35.9); MEAN CELL VOLUME 89.8 fl (80-96); MEAN PLT VOLUME 7.2 fl (7.5-11.1); PLATELET COUNT 170 10^3/uL (134-434); RBC 3.47 M/mm3 (4.00-5.60); RDW 15.4 % (11.9-15.9); WHITE BLOOD COUNT 3.7 K/mm3 (4.0-10.0)
[2021-03-05] MEDS ORDERED: VANCOMYCIN 1 GRAM (PRE-DOCKED) 1 GM/250 ML BAG IVPB ONE (10:15)
[2021-03-05 10:23] LABS: CHLORIDE 104 mmol/L (98-107); SODIUM 140 mmol/L (136-145)
[2021-03-05 10:24] LABS: ANION GAP 13 MMOL/L (8-16); BLOOD UREA NITROGEN 66.2 mg/dL (7-18); CALCIUM 8.8 mg/dL (8.5-10.1); CO2 23 mmol/L (21-32)
[2021-03-05 10:25] LABS: GLUCOSE,RANDOM 125 mg/dL (74-106)
[2021-03-05 10:28] LABS: PHOSPHOROUS 7.7 mg/dL (2.5-4.9)
[2021-03-05 10:37] LABS: CREATININE 14.8 mg/dL (0.55-1.3)
[2021-03-05] MEDS ORDERED: PT OWN MED DRAWER 7, Y5N ONE (12:49)
[2021-03-05] MEDS: DOLUTEGRAVIR SODIUM 50 MG TABLET (NON-FORMULARY) PO SCH (13:00)
[2021-03-05] MEDS: RILPIVIRINE HCL 25 MG TABLET PO SCH (13:00)
[2021-03-05] MEDS: amLODIPine BESYLATE 10 MG TABLET (FP) PO SCH (13:00)
[2021-03-06] MEDS ORDERED: PIPERACILLIN/TAZOBACTAM 2.25 GM VIAL IVPB ONE ×3 (01:43→17:02)
[2021-03-06] MEDS ORDERED: DEXTROSE 5%-WATER - 50 ML IVPB ONE ×3 (01:44→17:03)
[2021-03-06] MEDS: PIPERACILLIN/TAZOB 2.25 GM 2.25 GM in DEXTROSE 5%-WATER - 50 ML IVPB SCH ×3 (01:45→17:16)
[2021-03-06] MEDS: HEPARIN NA (PORCINE) 5,000 UNITS/ML 1ML VIAL SQ SCH ×3 (05:37→21:25)
[2021-03-06] MEDS: INSULIN SLIDING SCALE (NOVOLOG) 1 VIAL SQ SCH ×4 (06:53→21:24)
[2021-03-06] MEDS: CALCIUM ACETATE 667 MG CAPSULE (FP) PO SCH ×3 (07:59→17:15)
[2021-03-06 08:35] LABS: BASO % 0.9 % (0-2.0); EOS % 1.9 % (0-4.5); HEMATOCRIT 34.2 % (35.4-49); HEMOGLOBIN 11.5 GM/dL (11.7-16.9); LYMPH % 40.6 % (8-40); MCH 30.3 pg (25.7-33.7); MCHC 33.6 g/dl (32.0-35.9); MEAN CELL VOLUME 90.3 fl (80-96); MEAN PLT VOLUME 7.3 fl (7.5-11.1); MONO % 6.7 % (3.8-10.2); NEUT % 49.9 % (42.8-82.8); PLATELET COUNT 175 10^3/uL (134-434); RBC 3.79 M/mm3 (4.00-5.60); RDW 15.5 % (11.9-15.9); WHITE BLOOD COUNT 3.9 K/mm3 (4.0-10.0)
[2021-03-06 09:00] LABS: CHLORIDE 100 mmol/L (98-107); SODIUM 140 mmol/L (136-145)
[2021-03-06 09:06] LABS: ALBUMIN 3.4 g/dl (3.4-5.0); ANION GAP 11 MMOL/L (8-16); CALCIUM 9.3 mg/dL (8.5-10.1); CO2 28 mmol/L (21-32); GLUCOSE,RANDOM 143 mg/dL (74-106)
[2021-03-06 09:09] LABS: SGOT/AST 20 U/L (15-37); SGPT/ALT 21 U/L (13-61)
[2021-03-06] MEDS ORDERED: PT OWN MED DRAWER 7, Y5N ONE (09:09)
[2021-03-06 09:11] LABS: BILIRUBIN,TOTAL 0.6 mg/dL (0.2-1); TOT PROT 7.3 g/dl (6.4-8.2)
[2021-03-06 09:12] LABS: ALK PHOS 104 U/L (45-117)
[2021-03-06 09:15] LABS: BLOOD UREA NITROGEN 40.6 mg/dL (7-18); CREATININE 10.9 mg/dL (0.55-1.3)
[2021-03-06] MEDS: RILPIVIRINE HCL 25 MG TABLET PO SCH (09:48)
[2021-03-06] MEDS: amLODIPine BESYLATE 10 MG TABLET (FP) PO SCH (09:48)
[2021-03-06] MEDS: DOLUTEGRAVIR SODIUM 50 MG TABLET (NON-FORMULARY) PO SCH (09:49)
[2021-03-06] MEDS ORDERED: SODIUM CHLORIDE 250 ML IV PRN (13:44)
[2021-03-07] MEDS ORDERED: DEXTROSE 5%-WATER - 50 ML IVPB ONE ×2 (01:33→09:34)
[2021-03-07] MEDS ORDERED: PIPERACILLIN/TAZOBACTAM 2.25 GM VIAL IVPB ONE ×2 (01:33→09:34)
[2021-03-07] MEDS: PIPERACILLIN/TAZOB 2.25 GM 2.25 GM in DEXTROSE 5%-WATER - 50 ML IVPB SCH ×2 (01:36→11:17)
[2021-03-07] MEDS: HEPARIN NA (PORCINE) 5,000 UNITS/ML 1ML VIAL SQ SCH ×2 (05:18→15:12)
[2021-03-07] MEDS: INSULIN SLIDING SCALE (NOVOLOG) 1 VIAL SQ SCH ×3 (06:16→16:36)
[2021-03-07 06:26] VITALS: PULSE 86
[2021-03-07] MEDS ORDERED: PT OWN MED DRAWER 7, Y5N ONE (09:34)
[2021-03-07] MEDS: CALCIUM ACETATE 667 MG CAPSULE (FP) PO SCH ×3 (09:56→17:41)
[2021-03-07] MEDS: DOLUTEGRAVIR SODIUM 50 MG TABLET (NON-FORMULARY) PO SCH (09:57)
[2021-03-07] MEDS: RILPIVIRINE HCL 25 MG TABLET PO SCH (09:57)
[2021-03-07] MEDS: amLODIPine BESYLATE 10 MG TABLET (FP) PO SCH (09:59)
[2021-03-07 11:31] LABS: CHLORIDE 97 mmol/L (98-107); SODIUM 138 mmol/L (136-145)
[2021-03-07 11:37] LABS: ANION GAP 13 MMOL/L (8-16); CALCIUM 9.5 mg/dL (8.5-10.1); CO2 28 mmol/L (21-32)
[2021-03-07 11:38] LABS: GLUCOSE,RANDOM 225 mg/dL (74-106)
[2021-03-07 11:49] LABS: BLOOD UREA NITROGEN 65.8 mg/dL (7-18); CREATININE 13.8 mg/dL (0.55-1.3)
[2021-03-07 15:16] VITALS: BP 137/63; TEMP 98
== END 2021-03-07 18:05 | disposition home or self-care (01) | DRG 623 ==
LOC: JER 09:53 → JERBED 15:07 → J5S 21:20
PROVIDERS: ATTEND Internal Medicine
PROC: 0JBQ0ZZ Excision of Right Foot Subcutaneous Tissue and Fascia, Open Approach (ICD-10-PCS; principal; 2021-03-03)
DX: E11.621 Type 2 diabetes mellitus with foot ulcer (principal); L97.518 Non-pressure chronic ulcer of other part of right foot with other specified severity; I12.0 Hypertensive chronic kidney disease with stage 5 chronic kidney disease or end stage renal disease; L02.611 Cutaneous abscess of right foot; N18.6 End stage renal disease; Z21 Asymptomatic human immunodeficiency virus [HIV] infection status; E11.22 Type 2 diabetes mellitus with diabetic chronic kidney disease; E11.40 Type 2 diabetes mellitus with diabetic neuropathy, unspecified
CPT/HCPCS: 36415; 73630-TC-RT-FY; 73700-TC-RT; 73718-TC-RT; 80048; 80053; 82962; 83735; 84100; 85025; 85027; 85651; 86140; 86359; 86360; 86803; 87040; 87070; 87186; 87205; 87340; 99285-25; C9803; G0480; J1644; U0003; U0005

== ENCOUNTER 2021-04-22 12:38 | Inpatient (IN) | payer OTHER, BC ==
[2021-04-22 13:25] VITALS: BMI 22.1
[2021-04-22 15:13] LABS: BASO % 0.8 % (0-2.0); EOS % 1.8 % (0-4.5); HEMATOCRIT 36.5 % (35.4-49); HEMOGLOBIN 12.8 GM/dL (11.7-16.9); MCH 32.8 pg (25.7-33.7); MEAN CELL VOLUME 93.9 fl (80-96); MONO % 5.2 % (3.8-10.2); NEUT % 63.2 % (42.8-82.8); PLATELET COUNT 208 10^3/uL (134-434); RBC 3.89 M/mm3 (4.00-5.60)
[2021-04-22 15:21] LABS: INR 0.98 (0.83-1.09); PROTHROMBIN TIME (PATIENT) 11.9 SEC (9.7-13.0)
[2021-04-22 15:23] LABS: ACTIVATED PTT 35.6 SECONDS (25.2-36.5)
[2021-04-22 15:34] LABS: CHLORIDE 101 mmol/L (98-107); SODIUM 140 mmol/L (136-145)
[2021-04-22 15:36] LABS: ALBUMIN 4.1 g/dl (3.4-5.0); ANION GAP 7 MMOL/L (8-16); CALCIUM 8.7 mg/dL (8.5-10.1); CO2 32 mmol/L (21-32); GLUCOSE,RANDOM 184 mg/dL (74-106); MAGNESIUM 3.1 mg/dL (1.8-2.4)
[2021-04-22 15:39] LABS: SGOT/AST 27 U/L (15-37); SGPT/ALT 25 U/L (13-61)
[2021-04-22 15:40] LABS: PHOSPHOROUS 5.3 mg/dL (2.5-4.9)
[2021-04-22 15:41] LABS: BILIRUBIN,TOTAL 0.4 mg/dL (0.2-1); TOT PROT 8.2 g/dl (6.4-8.2)
[2021-04-22 15:42] LABS: ALK PHOS 145 U/L (45-117)
[2021-04-22 15:45] LABS: N-TERMINAL BNP 1182.6 pg/ml (5-125)
[2021-04-22 16:07] LABS: CREATININE 11.5 mg/dL (0.55-1.3)
[2021-04-22] MEDS ORDERED: ACETAMINOPHEN 1000 MG/100 ML VIAL (NON FORMULARY) IVPB ONE (18:54)
[2021-04-22] MEDS ORDERED: ASPIRIN 81 MG CHEWABLE TABLETS PO ONE (18:54)
[2021-04-22] MEDS ORDERED: INSULIN REGULAR HUMAN 100 UNITS/ML *VIAL IVPUSH ONE (19:08)
[2021-04-22] MEDS ORDERED: CALCIUM GLUCONATE 10% - 1,000 MG/10 ML VIAL IVPUSH ONE (19:08)
[2021-04-22] MEDS ORDERED: DEXTROSE 50%-WATER - 25 GM/50 ML VIAL IVPUSH ONE (19:08)
[2021-04-22] MEDS ORDERED: CALCIUM GLUCONATE 10% - 1,000 MG/10 ML VIAL ONE (19:50)
[2021-04-22] MEDS ORDERED: ASPIRIN 81 MG CHEWABLE TABLETS ONE (19:50)
[2021-04-22] MEDS ORDERED: ACETAMINOPHEN INJECTION 100 ML IVPB ONE (19:51)
[2021-04-22] MEDS ORDERED: DEXTROSE 50%-WATER 25 GM/50 ML DISP.SYRIN ONE (19:51)
[2021-04-22] MEDS ORDERED: INSULIN REGULAR HUMAN 100 UNITS/ML *VIAL ONE (19:51)
[2021-04-22] MEDS ORDERED: HEPARIN NA (PORCINE) 5,000 UNITS/ML 1ML VIAL ONE (20:44)
[2021-04-22] MEDS: HEPARIN NA (PORCINE) 5,000 UNITS/ML 1ML VIAL SQ SCH (20:52)
[2021-04-22] MEDS ORDERED: EMTRICITABINE 200 MG CAPSULE PO SCH (22:15)
[2021-04-22] MEDS: ROSUVASTATIN CA 5 MG TABLET (FP) PO SCH (23:04)
[2021-04-23] MEDS: HEPARIN NA (PORCINE) 5,000 UNITS/ML 1ML VIAL SQ SCH ×3 (06:39→22:05)
[2021-04-23] MEDS: SEVELAMER CARBONATE 800 MG TAB (FP) PO SCH ×3 (07:47→17:18)
[2021-04-23] MEDS: CALCIUM ACETATE 667 MG CAPSULE (FP) PO SCH ×3 (07:47→22:06)
[2021-04-23] MEDS ORDERED: PT OWN MED DRAWER 7, Y5N ONE (07:53)
[2021-04-23] MEDS ORDERED: ENTECAVIR 0.5 MG TABLET PO SCH (10:00)
[2021-04-23] MEDS ORDERED: PATIENT'S OWN MEDICATION (NON-FORMULARY) (Dolutegravir/Rilpivirine [Juluca 50-25 Mg Tablet PO SCH (10:00)
[2021-04-23] MEDS: RILPIVIRINE HCL 25 MG TABLET PO SCH (10:39)
[2021-04-23] MEDS: DOLUTEGRAVIR SODIUM 50 MG TABLET (NON-FORMULARY) PO SCH (10:40)
[2021-04-23] MEDS: CINACALCET HCL 30 MG TAB (FP) PO SCH (10:40)
[2021-04-23 13:53] LABS: CHOLESTEROL 120 mg/dL (50-200); TRIGLYCERIDES 113 mg/dL (0-150)
[2021-04-23 13:55] LABS: LDL CHOLESTEROL (ONLY SJRH) 58 mg/dL (5-100)
[2021-04-23 13:56] LABS: HDL CHOLESTEROL 43 mg/dL (40-60)
[2021-04-23] MEDS ORDERED: SODIUM CHLORIDE 250 ML IV PRN (13:59)
[2021-04-23 14:23] LABS: BASO % 1.2 % (0-2.0); EOS % 2.4 % (0-4.5); HEMATOCRIT 34.1 % (35.4-49); HEMOGLOBIN 12.2 GM/dL (11.7-16.9); LYMPH % 45.3 % (8-40); MCH 32.7 pg (25.7-33.7); MCHC 35.8 g/dl (32.0-35.9); MEAN CELL VOLUME 91.3 fl (80-96); MEAN PLT VOLUME 7.3 fl (7.5-11.1); NEUT % 47.1 % (42.8-82.8); PLATELET COUNT 204 10^3/uL (134-434); RBC 3.74 M/mm3 (4.00-5.60); RDW 15.8 % (11.9-15.9); WHITE BLOOD COUNT 3.4 K/mm3 (4.0-10.0)
[2021-04-23 14:49] LABS: ALBUMIN 3.6 g/dl (3.4-5.0); BLOOD UREA NITROGEN 28.5 mg/dL (7-18); MAGNESIUM 2.3 mg/dL (1.8-2.4)
[2021-04-23 14:52] LABS: CREATININE 6.6 mg/dL (0.55-1.3); PHOSPHOROUS 2.1 mg/dL (2.5-4.9)
[2021-04-23 14:53] LABS: BILIRUBIN,TOTAL 0.4 mg/dL (0.2-1)
[2021-04-23 14:54] LABS: TOT PROT 7.4 g/dl (6.4-8.2)
[2021-04-23] MEDS: ROSUVASTATIN CA 5 MG TABLET (FP) PO SCH (22:05)
[2021-04-24] MEDS: HEPARIN NA (PORCINE) 5,000 UNITS/ML 1ML VIAL SQ SCH ×2 (07:04→13:56)
[2021-04-24] MEDS ORDERED: PT OWN MED DRAWER 7, Y5N ONE ×2 (08:54→10:07)
[2021-04-24] MEDS: CALCIUM ACETATE 667 MG CAPSULE (FP) PO SCH ×3 (09:21→17:29)
[2021-04-24] MEDS: SEVELAMER CARBONATE 800 MG TAB (FP) PO SCH ×3 (09:21→17:29)
[2021-04-24] MEDS: RILPIVIRINE HCL 25 MG TABLET PO SCH (09:22)
[2021-04-24] MEDS: CINACALCET HCL 30 MG TAB (FP) PO SCH (09:22)
[2021-04-24] MEDS: DOLUTEGRAVIR SODIUM 50 MG TABLET (NON-FORMULARY) PO SCH (09:23)
[2021-04-24 19:06] VITALS: BP 141/79; PULSE 97; TEMP 98.1
[2021-04-25] MEDS ORDERED: EMTRICITABINE 200 MG CAPSULE PO SCH (10:00)
== END 2021-04-24 19:21 | disposition short-term general hospital (02) | DRG 313 ==
LOC: JER 12:38 → JERBED 19:06 → J4W 23:41
PROVIDERS: ADMIT Internal Medicine
PROC: 5A1D70Z Performance of Urinary Filtration, Intermittent, Less than 6 Hours Per Day (ICD-10-PCS; principal; 2021-04-23)
DX: R07.89 Other chest pain (principal); N18.6 End stage renal disease; I12.0 Hypertensive chronic kidney disease with stage 5 chronic kidney disease or end stage renal disease; E11.40 Type 2 diabetes mellitus with diabetic neuropathy, unspecified; E11.22 Type 2 diabetes mellitus with diabetic chronic kidney disease; Z99.2 Dependence on renal dialysis; Z89.421 Acquired absence of other right toe(s); Z79.84 Long term (current) use of oral hypoglycemic drugs; E87.5 Hyperkalemia; E11.51 Type 2 diabetes mellitus with diabetic peripheral angiopathy without gangrene; F41.9 Anxiety disorder, unspecified
CPT/HCPCS: 36415; 71046-TC-FY; 71250-TC; 74176-TC; 80053; 80061; 82550; 82553; 82962; 83036; 83735; 83880; 84100; 84484; 85025; 85610; 85730; 86803; 86850; 86900; 86901; 87340; 93005; 93010; 99285-25; C9803; J0131; J1644; U0003; U0005

== ENCOUNTER 2021-11-26 11:51 | Inpatient (IN) | payer BC, OTHER ==
[2021-11-26] MEDS ORDERED: SODIUM CHLORIDE 1,000 ML IV STA (14:29)
[2021-11-26 15:40] LABS: CHLORIDE 91 mmol/L (98-107); SODIUM 128 mmol/L (136-145)
[2021-11-26 15:41] LABS: ALBUMIN 3.1 g/dl (3.4-5.0); BLOOD UREA NITROGEN 34.6 mg/dL (7-18); CALCIUM 11.8 mg/dL (8.5-10.1); CO2 20 mmol/L (21-32)
[2021-11-26 15:45] LABS: CREATININE 2.1 mg/dL (0.55-1.3); SGOT/AST 37 U/L (15-37); SGPT/ALT 18 U/L (13-61)
[2021-11-26 15:47] LABS: ALK PHOS 123 U/L (45-117); BILIRUBIN,TOTAL 0.9 mg/dL (0.2-1); TOT PROT 7.4 g/dl (6.4-8.2)
[2021-11-26 15:49] LABS: HEMATOCRIT 44.1 % (35.4-49); HEMOGLOBIN 14.9 GM/dL (11.7-16.9); MCHC 33.7 g/dl (32.0-35.9); MEAN CELL VOLUME 89.1 fl (80-96); MEAN PLT VOLUME 7.9 fl (7.5-11.1); PLATELET COUNT 190 10^3/uL (134-434); RBC 4.95 M/mm3 (4.00-5.60); RDW 14.8 % (11.9-15.9); WHITE BLOOD COUNT 3.8 K/mm3 (4.0-10.0)
[2021-11-26 15:51] LABS: ANION GAP 17 MMOL/L (8-16); GLUCOSE,RANDOM 638 mg/dL (74-106)
[2021-11-26] MEDS ORDERED: PIPERACILLIN/TAZOB 4.5 GM 4.5 GM in DEXTROSE 5%-WATER 100 ML IVPB ONE (16:43)
[2021-11-26 16:53] LABS: ANISOCYTOSIS 0; HELMET CELLS 0; HOWELL-JOLLY BODIES 0; MACROCYTOSIS 0; OVALOCYTE 0; ROULEAU 0; SICKELED CELLS 0; TARGET CELLS 0; TEAR DROP CELLS 0; TOXIC GRANULATION 0
[2021-11-26 17:14] LABS: VENOUS BASE EXCESS -7.8 mmol/L (-2-2); VENOUS O2 SATURATION 80.2 % (70-80); VENOUS PCO2 31.7 mmHg (38-52); VENOUS PH 7.339 (7.310-7.410)
[2021-11-26] MEDS ORDERED: PIPERACILLIN/TAZOB 4.5 GM 4.5 GM/100 ML BAG IVPB ONE (17:22)
[2021-11-26 17:37] LABS: CHLORIDE 93 mmol/L (98-107); SODIUM 130 mmol/L (136-145)
[2021-11-26 17:40] LABS: ALBUMIN 2.8 g/dl (3.4-5.0); ANION GAP 20 MMOL/L (8-16); BLOOD UREA NITROGEN 34.9 mg/dL (7-18); CALCIUM 11.1 mg/dL (8.5-10.1); CO2 17 mmol/L (21-32)
[2021-11-26 17:42] LABS: CREATININE 1.9 mg/dL (0.55-1.3); SGOT/AST 21 U/L (15-37); SGPT/ALT 18 U/L (13-61)
[2021-11-26 17:44] LABS: BILIRUBIN,TOTAL 0.8 mg/dL (0.2-1); TOT PROT 6.8 g/dl (6.4-8.2)
[2021-11-26 17:45] LABS: ALK PHOS 115 U/L (45-117)
[2021-11-26 17:46] LABS: GLUCOSE,RANDOM 595 mg/dL (74-106)
[2021-11-26] MEDS ORDERED: INSULIN REGULAR HUMAN 100 UNITS/ML *VIAL IVPUSH ONE (17:58)
[2021-11-26] MEDS ORDERED: LACTATED RINGERS SOLUTION 1000 ML INFUS.BAG IV ONE ×3 (18:01→23:58)
[2021-11-26] MEDS ORDERED: INSULIN REGULAR HUMAN 100 UNITS/ML *VIAL ONE (18:04)
[2021-11-26 18:27] LABS: LACTIC ACID 2.8 mmol/L (0.4-2.0)
[2021-11-26] MEDS ORDERED: VANCOMYCIN 1 GM in D5W (PRE-DOCKED) 1,000 MG/250 ML IVPB ONE (20:36)
[2021-11-26] MEDS ORDERED: VANCOMYCIN 1 GRAM (PRE-DOCKED) 1,000 MG/250 ML BAG IVPB ONE (20:48)
[2021-11-27] MEDS ORDERED: FAMOTIDINE 20 MG TABLET PO PRN (00:07)
[2021-11-27] MEDS ORDERED: POLYETHYLENE GLYCOL (HEALTHYLAX) 3350 17 GM PACKET PO PRN ×2 (00:07→03:20)
[2021-11-27] MEDS ORDERED: ACETAMINOPHEN 325 MG TABLET (FP) PO PRN ×2 (00:07→03:20)
[2021-11-27] MEDS ORDERED: SODIUM CHLORIDE 1,000 ML IV SCH ×2 (00:15→03:20)
[2021-11-27] MEDS ORDERED: INSULIN REGULAR HUMAN 100 UNITS/ML *VIAL IVPUSH ONE (00:25)
[2021-11-27] MEDS ORDERED: INSULIN REGULAR 100 UNITS in SODIUM CHLORIDE 99 ML IVPB SCH ×2 (00:30→03:20)
[2021-11-27 01:47] LABS: VENOUS BASE EXCESS -8.6 mmol/L (-2-2); VENOUS O2 SATURATION 44.3 % (70-80); VENOUS PCO2 32.3 mmHg (38-52); VENOUS PH 7.323 (7.310-7.410)
[2021-11-27 01:56] LABS: URINE APPEARANCE CLEAR; URINE BILIRUBIN NEGATIVE (NEGATIVE); URINE COLOR YELLOW; URINE GLUCOSE (UA) 3+ (NEGATIVE); URINE KETONE 3+ (NEGATIVE); URINE LEUK ESTERASE NEGATIVE (NEGATIVE); URINE NITRITE NEGATIVE (NEGATIVE); URINE PROTEIN NEGATIVE (NEGATIVE); URINE UROBILINOGEN 0.2 mg/dL (0.2-1.0)
[2021-11-27] MEDS ORDERED: INSULIN DRIP - PLEASE ORDER UNDER SETS NR ONE (02:04)
[2021-11-27 02:22] LABS: LACTIC ACID 2.3 mmol/L (0.4-2.0)
[2021-11-27 02:25] LABS: CALCIUM 9.7 mg/dL (8.5-10.1)
[2021-11-27 02:27] LABS: BLOOD UREA NITROGEN 26.3 mg/dL (7-18)
[2021-11-27 02:28] LABS: CREATININE 1.4 mg/dL (0.55-1.3)
[2021-11-27 02:30] LABS: BILIRUBIN,TOTAL 0.6 mg/dL (0.2-1)
[2021-11-27 02:31] LABS: TOT PROT 4.9 g/dl (6.4-8.2)
[2021-11-27 02:38] LABS: ARTERIAL BLD GAS O2 SATURATION 96.4 % (95-98); ARTERIAL BLOOD GAS BASE EXCESS -3.8 mmol/L (-2-2); ARTERIAL BLOOD GAS PO2 84.1 mmHg (80-100); ARTERIAL BLOOD GAS pH 7.397 (7.350-7.450)
[2021-11-27 02:40] LABS: PT'S TEMP 98.7
[2021-11-27] MEDS ORDERED: PIPERACILLIN/TAZOB 3.375 GM 3.375 GM in DEXTROSE 5%-WATER - 50 ML IVPB SCH ×2 (03:15→10:00)
[2021-11-27 03:45] VITALS: BMI 20.5
[2021-11-27] MEDS ORDERED: DEXTROSE 5%-WATER - 50 ML IVPB ONE ×3 (04:07→10:10)
[2021-11-27] MEDS ORDERED: PIPERACILLIN/TAZOBACTAM 3.375 GM VIAL IVPB ONE ×3 (04:07→10:10)
[2021-11-27] MEDS: HEPARIN NA (PORCINE) 5,000 UNITS/ML 1ML VIAL SQ SCH ×2 (05:15→14:22)
[2021-11-27] MEDS ORDERED: HEPARIN NA (PORCINE) 5,000 UNITS/ML 1ML VIAL SQ SCH (06:00)
[2021-11-27] MEDS: INSULIN SLIDING SCALE (NOVOLOG) 1 VIAL SQ SCH ×2 (06:10→13:11)
[2021-11-27] MEDS ORDERED: INSULIN SLIDING SCALE (NOVOLOG) 1 VIAL SQ SCH (07:00)
[2021-11-27] MEDS ORDERED: INSULIN (LEVEMIR) 100 UNITS/ML UNITS SQ ONE (07:04)
[2021-11-27 07:36] LABS: HEMATOCRIT 34.6 % (35.4-49); HEMOGLOBIN 11.8 GM/dL (11.7-16.9); MCH 29.9 pg (25.7-33.7); MCHC 34.2 g/dl (32.0-35.9); MEAN CELL VOLUME 87.6 fl (80-96); MEAN PLT VOLUME 7.8 fl (7.5-11.1); PLATELET COUNT 193 10^3/uL (134-434); RBC 3.95 M/mm3 (4.00-5.60); WHITE BLOOD COUNT 2.8 K/mm3 (4.0-10.0)
[2021-11-27 07:48] LABS: CALCIUM 10.1 mg/dL (8.5-10.1)
[2021-11-27 07:49] LABS: BLOOD UREA NITROGEN 22.3 mg/dL (7-18); MAGNESIUM 1.7 mg/dL (1.8-2.4)
[2021-11-27 07:52] LABS: CREATININE 1.2 mg/dL (0.55-1.3); PHOSPHOROUS 1.6 mg/dL (2.5-4.9)
[2021-11-27 07:53] LABS: BILIRUBIN,TOTAL 0.6 mg/dL (0.2-1)
[2021-11-27 07:58] LABS: LACTIC ACID 3.7 mmol/L (0.4-2.0)
[2021-11-27] MEDS ORDERED: VANCOMYCIN 1 GRAM (PRE-DOCKED) 1,000 MG/250 ML BAG IVPB SCH ×2 (08:00)
[2021-11-27] MEDS ORDERED: SODIUM CHLORIDE 0.9% 1000 ML INFUS.BAG IV ONE ×2 (08:16→10:00)
[2021-11-27] MEDS ORDERED: MAGNESIUM 1GM/D5W - 1 GM/100 ML IVPB IVPB ONE (08:30)
[2021-11-27 09:19] LABS: MACROCYTOSIS 0; OVALOCYTE 0
[2021-11-27 09:21] LABS: PLATELET ESTIMATE ADEQUATE
[2021-11-27] MEDS ORDERED: VANCOMYCIN/WATER FOR INJ (PEG) 1,000 MG/250 ML BAG IVPB SCH ×2 (09:44→10:00)
[2021-11-27] MEDS ORDERED: VANCOMYCIN 1 GM in D5W (PRE-DOCKED) 1,000 MG/250 ML IVPB SCH (10:00)
[2021-11-27] MEDS ORDERED: CLINDAMYCIN 900 MG PREMIX IVPB 900 MG/50 ML BAG IVPB SCH (10:00)
[2021-11-27] MEDS ORDERED: FAMOTIDINE 20 MG TABLET PO SCH ×2 (10:00)
[2021-11-27] MEDS ORDERED: FLUCONAZOLE 100 MG TABLET (UD) PO SCH ×2 (10:00)
[2021-11-27] MEDS ORDERED: BICTEGRAV/EMTRICIT/TENOFOV (BIKTARVY) 50-200-25 MG TABLET PO SCH ×2 (10:00)
[2021-11-27] MEDS ORDERED: ASPIRIN COATED 81 MG TABLET.EC PO SCH ×2 (10:00)
[2021-11-27] MEDS ORDERED: VANCOMYCIN 1 GM/200 ML PREMIX BAG IVPB SCH (10:00)
[2021-11-27] MEDS ORDERED: SULFAMETHOXAZOLE/TRIMETHOPRIM 400MG/80MG S.S. TABLET PO SCH ×2 (10:00)
[2021-11-27] MEDS ORDERED: NIFEdipine E.R. 30 MG TABLET PO SCH ×2 (10:00)
[2021-11-27] MEDS ORDERED: MUPIROCIN 2% TOPICAL OINTMENT FOR DECOLONIZATION NS SCH ×2 (10:00→22:00)
[2021-11-27] MEDS: PIPERACILLIN/TAZOB 3.375 GM 3.375 GM in DEXTROSE 5%-WATER - 50 ML IVPB SCH ×2 (10:13→14:25)
[2021-11-27] MEDS ORDERED: VANCOMYCIN/WATER FOR INJ (PEG) 1,000 MG/200 ML BAG IVPB SCH (10:15)
[2021-11-27] MEDS ORDERED: LIDOCAINE HCL 1%, 10 MG/ML (20ML VIAL) ONE (11:00)
[2021-11-27] MEDS ORDERED: GENTAMICIN SO4 80 MG/2 ML VIAL ONE (11:00)
[2021-11-27] MEDS ORDERED: LIDOCAINE HCL 1%, 10 MG/ML (20ML VIAL) NR ONE (11:47)
[2021-11-27] MEDS ORDERED: GENTAMICIN SO4 80 MG/2 ML VIAL IVPB ONE (11:53)
[2021-11-27] MEDS ORDERED: THROMBIN (BOVINE) 5,000 UNIT VIAL TP ONE ×3 (12:01→12:09)
[2021-11-27] MEDS ORDERED: ACETAMINOPHEN INJECTION 100 ML IVPB ONE (12:59)
[2021-11-27 13:01] VITALS: BP 150/72; PULSE 123
[2021-11-27] MEDS ORDERED: ACETAMINOPHEN 1000 MG/100 ML BAG IVPB ONE (13:15)
[2021-11-27 13:55] VITALS: TEMP 99.8
[2021-11-27] MEDS ORDERED: CHLORHEXIDINE GLUCONATE 4% CLEANSER FOR DECOLONIZATION TP SCH ×2 (22:00)
[2021-11-27] MEDS ORDERED: ROSUVASTATIN CA 5 MG TABLET PO SCH ×2 (22:00)
== END 2021-11-27 14:52 | disposition short-term general hospital (02) | DRG 951 ==
LOC: JER 11:51 → JERBED 20:37 → JICU 11-27 03:05
PROVIDERS: ADMIT Internal Medicine; ATTEND Internal Medicine Pulmonary Disease
PROC: 0Q9L0ZZ Drainage of Right Tarsal, Open Approach (ICD-10-PCS; principal; 2021-11-27 10:48)
DX: E11.10 Type 2 diabetes mellitus with ketoacidosis without coma (principal); N17.9 Acute kidney failure, unspecified; A48.0 Gas gangrene; E87.1 Hypo-osmolality and hyponatremia; L97.909 Non-pressure chronic ulcer of unspecified part of unspecified lower leg with unspecified severity; M86.9 Osteomyelitis, unspecified; E83.52 Hypercalcemia; E87.5 Hyperkalemia; Z94.0 Kidney transplant status; E78.00 Pure hypercholesterolemia, unspecified; F17.200 Nicotine dependence, unspecified, uncomplicated; I12.9 Hypertensive chronic kidney disease with stage 1 through stage 4 chronic kidney disease, or unspecified chronic kidney disease; L02.611 Cutaneous abscess of right foot; R63.1 Polydipsia; Z21 Asymptomatic human immunodeficiency virus [HIV] infection status; E11.22 Type 2 diabetes mellitus with diabetic chronic kidney disease; E11.42 Type 2 diabetes mellitus with diabetic polyneuropathy; E11.52 Type 2 diabetes mellitus with diabetic peripheral angiopathy with gangrene; E11.621 Type 2 diabetes mellitus with foot ulcer; E11.69 Type 2 diabetes mellitus with other specified complication; N18.9 Chronic kidney disease, unspecified
CPT/HCPCS: 36415; 36600; 73610-TC-RT-FY; 73630-TC-RT-FY; 73700-TC-RT; 80048; 80053; 80061; 80197; 81003; 82010; 82803; 82962; 83036; 83605; 83735; 83930; 84100; 84443; 85025; 86140; 87040; 87070; 87076; 87086; 87186; 87205; 93005; 93010; 99285-25; C9803-CS; J1644; U0003; U0005

== ENCOUNTER → 2022-09-18 | Emergency (ER) | payer BC, OTHER ==
[~2022-09-18] MED LIST: INSULIN (LEVEMIR) 100 UNITS/ML UNITS SQ SCH; INSULIN (NOVOLOG) ASPART 100 UNITS/ML 10ML VIAL SQ ONE; LACTATED RINGERS SOLUTION 1000 ML INFUS.BAG IV ONE; MEROPENEM 1 GM VIAL (RESTRICTED TO ID) IVPB ONE; MEROPENEM 1 GM in DEXTROSE 5%-WATER 100 ML IVPB ONE; VANCOMYCIN 1 GM in D5W (PRE-DOCKED) 1,000 MG/250 ML IVPB ONE; VANCOMYCIN/WATER FOR INJ (PEG) 1,000 MG/200 ML BAG IVPB ONE
[2022-09-18 09:43] VITALS: BMI 26.2
[2022-09-18 10:48] LABS: VENOUS BASE EXCESS -1.9 mmol/L (-2-2); VENOUS O2 SATURATION 45.9 % (70-80); VENOUS PCO2 42.3 mmHg (38-52); VENOUS PH 7.362 (7.310-7.410)
[2022-09-18 11:20] LABS: INR 1.34 (0.83-1.09); PROTHROMBIN TIME (PATIENT) 15.4 SEC (9.7-13.0)
[2022-09-18 11:23] LABS: ACTIVATED PTT 32.9 SECONDS (25.2-36.5)
[2022-09-18 11:25] LABS: BASO % 0.2 % (0-2.0); HEMATOCRIT 44.9 % (35.4-49); HEMOGLOBIN 15.5 GM/dL (11.7-16.9); LYMPH % 4.8 % (8-40); MCH 32.1 pg (25.7-33.7); MCHC 34.5 g/dl (32.0-35.9); MEAN CELL VOLUME 93.2 fl (80-96); MEAN PLT VOLUME 7.8 fl (7.5-11.1); MONO % 4.6 % (3.8-10.2); NEUT % 90.4 % (42.8-82.8); PLATELET COUNT 153 10^3/uL (134-434); RBC 4.82 M/mm3 (4.00-5.60); RDW 16.7 % (11.9-15.9); WHITE BLOOD COUNT 10.4 K/mm3 (4.0-10.0)
[2022-09-18 11:36] LABS: LACTIC ACID 2.8 mmol/L (0.4-2.0)
[2022-09-18 11:43] LABS: CHLORIDE 99 mmol/L (98-107); SODIUM 131 mmol/L (136-145)
[2022-09-18 11:46] LABS: CALCIUM 9.9 mg/dL (8.5-10.1); GLUCOSE,RANDOM 253 mg/dL (74-106)
[2022-09-18 11:47] LABS: ALBUMIN 3.1 g/dl (3.4-5.0); BLOOD UREA NITROGEN 28.3 mg/dL (7-18); CO2 21 mmol/L (21-32)
[2022-09-18 11:50] LABS: CREATININE 1.7 mg/dL (0.55-1.3); SGOT/AST 55 U/L (15-37); SGPT/ALT 45 U/L (13-61)
[2022-09-18 11:51] LABS: BILIRUBIN,TOTAL 1.9 mg/dL (0.2-1); TOT PROT 7.2 g/dl (6.4-8.2)
[2022-09-18 11:52] LABS: ALK PHOS 146 U/L (45-117)
[2022-09-18 12:02] LABS: ANION GAP 11 MMOL/L (8-16)
[2022-09-18 12:11] LABS: ERYTHROCYTE SEDIMENTATION RATE 66 mm/hr (0-20)
[2022-09-18 12:29] LABS: ANISOCYTOSIS 0; HELMET CELLS 0; HOWELL-JOLLY BODIES 0; MACROCYTOSIS 0; OVALOCYTE 0; ROULEAU 0; SICKELED CELLS 0; TARGET CELLS 0; TEAR DROP CELLS 0; TOXIC GRANULATION 0
[2022-09-18 16:38] LABS: CALCIUM 9.2 mg/dL (8.5-10.1)
[2022-09-18 16:39] LABS: ALBUMIN 2.5 g/dl (3.4-5.0); BLOOD UREA NITROGEN 27.9 mg/dL (7-18)
[2022-09-18 16:42] LABS: CREATININE 1.4 mg/dL (0.55-1.3)
[2022-09-18 16:44] LABS: BILIRUBIN,TOTAL 1.5 mg/dL (0.2-1); TOT PROT 5.7 g/dl (6.4-8.2)
[2022-09-19 03:09] VITALS: BP 122/81; PULSE 115; RESP 20; TEMP 99.3
== END | disposition left against medical advice (07) ==
LOC: JER 09:10
PROC: 3E033GC Introduction of Other Therapeutic Substance into Peripheral Vein, Percutaneous Approach (ICD-10-PCS; principal; 2022-09-18)
PROC: 3E023GC Introduction of Other Therapeutic Substance into Muscle, Percutaneous Approach (ICD-10-PCS; 2022-09-18)
DX: S91.301A Unspecified open wound, right foot, initial encounter (principal); Y99.9 Unspecified external cause status
CPT/HCPCS: 0241U-QW; 36415; 71045-TC-FY; 73700-TC-RT; 80053; 82550; 82553; 82803; 82962; 83605; 84484; 85025; 85610; 85651; 85730; 86140; 87040; 87070; 87076; 87077; 87186; 87205; 93005; 93010; 96365; 96372; 96375; 99285-25

== ENCOUNTER 2023-04-09 20:01 | Emergency (ER) | payer OTHER ==
[2023-04-09 20:10] VITALS: BP 142/80; PULSE 86; RESP 18; TEMP 98; BMI 23.0
[2023-04-09] MEDS ORDERED: traMADol HCL 50 MG TABLET PO ONE (22:05)
[2023-04-09] MEDS ORDERED: traMADol HCL 50 MG TABLET ONE (22:14)
[2023-04-09] MEDS ORDERED: BACITRACIN ZINC 15 GM TUBE TOPICAL OINTMENT ONE (23:03)
== END 2023-04-09 23:34 | disposition home or self-care (01) ==
LOC: JERFT 20:01
DX: S63.8X1A Sprain of other part of right wrist and hand, initial encounter (principal); S59.901A Unspecified injury of right elbow, initial encounter; S81.001A Unspecified open wound, right knee, initial encounter; W19.XXXA Unspecified fall, initial encounter
CPT/HCPCS: 73070-TC-RT-FY; 73130-TC-LT-FY; 73562-TC-RT-FY; 99284-25

== ENCOUNTER 2024-01-05 13:16 | Emergency (ER) | payer OTHER ==
[2024-01-05 13:30] VITALS: BP 127/86; PULSE 108; RESP 18; TEMP 97.9; BMI 22.9
[2024-01-05] MEDS: chlorproMAZINE HCL 25 MG TABLET PO STA (13:41)
== END 2024-01-05 14:52 | disposition home or self-care (01) ==
LOC: FER 13:16
DX: R06.6 Hiccough (principal)
CPT/HCPCS: 93005; 99283-25